=== PATIENT | female | born 1985 | race Caucasian/White ===

== ENCOUNTER → 2016-08-13 | Outpatient (CLI) | payer OTHER ==
--- NOTE | 2016-08-14 08:04 | US ---
EXAM DESCRIPTION: US ABDOMEN CLINICAL HISTORY: OTHER CIRRHOSIS OF LIVER COMPARISON: May 07, 2015 TECHNIQUE: Complete abdominal ultrasound was performed utilizing imaging. Gore Seamer static images were saved to the patient's medical record. FINDINGS: The liver is mildly enlarged measuring 17.7 cm in the craniocaudal dimension. The liver is echogenic. There is a 9 mm x 1 cm x 1.2 cm echogenic focus noted within the anterior right hepatic lobe. This may be compatible with a hemangioma. Additional small echogenic foci seen on today's study within the liver. The gallbladder is well seen and unremarkable. There are no gallstones. There is no gallbladder wall thickening. The common bile duct is normal in caliber measuring 3.5 mm. The incompletely imaged (due to overlying bowel gas and soft tissues) pancreas and the spleen are unremarkable. The kidneys are normal in size, shape, and echotexture. The IVC and the proximal aorta are unremarkable. IMPRESSION: Mild hepatomegaly and increased echogenicity of the liver. These findings can be seen in the setting of fatty infiltration or hepatocellular disease. Multiple hyperechoic foci seen within the liver. These are likely compatible with hepatic hemangiomas. The echogenic focus within the anterior right hepatic lobe is roughly stable when compared to prior. Electronically signed by: Jerald Dailey MD 08/14/2016 08:02
== END ==
LOC: US 08:59
PROVIDERS: ATTEND Family Medicine
DX: K74.69 Other cirrhosis of liver (principal); K85.90 Acute pancreatitis without necrosis or infection, unspecified; R74.0 Nonspecific elevation of levels of transaminase and lactic acid dehydrogenase [LDH]

== ENCOUNTER → 2016-08-28 | Outpatient (CLI) | payer OTHER | LOC: GMA 10:44 | PROVIDERS: ATTEND Nurse Practitioner Acute Care | DX: N39.0 Urinary tract infection, site not specified (principal) ==

== ENCOUNTER 2016-10-06 18:04 | Emergency (ER) | payer OTHER ==
--- NOTE | 2016-10-06 19:00 | RAD ---
EXAM: Chest,2 Views CLINICAL INDICATION: 30-year-old female with cough. TECHNIQUE: Two-view, PA and lateral projections of the chest were obtained. COMPARISON: None. FINDINGS: Unremarkable cardiac and mediastinal silhouette. Heart size is normal. Lungs are clear without focal opacity, pneumothorax or pleural effusions. The visualized bones are within normal limits. IMPRESSION: No acute cardiopulmonary abnormalities. Electronically signed by: Ameena Hess MD 10/06/2016 6:58 PM CDT
[2016-10-06] MEDS ORDERED: ACETYLCYSTEIN 20 % 6,000 MG/30 ML VIAL NEB ONE (20:05)
[2016-10-06] MEDS ORDERED: diphenhydrAMINE HCL 25 MG CAP PO ONE (20:06)
[2016-10-06] MEDS ORDERED: BENZONATATE PERLES 100 MG CAP PO ONE (20:06)
[2016-10-06] MEDS ORDERED: HYDROcodone 10MG/APAP 325MG 1 EA TAB PO ONE (20:07)
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
[2016-10-06 21:41] VITALS: BP 148/92; TEMP 98.2
[2016-10-06 23:30] VITALS: O2SAT 92
== END 2016-10-06 21:40 | disposition home or self-care (01) ==
LOC: ER 18:04
DX: J20.8 Acute bronchitis due to other specified organisms (principal); E10.9 Type 1 diabetes mellitus without complications; Z79.4 Long term (current) use of insulin; I10 Essential (primary) hypertension; E07.9 Disorder of thyroid, unspecified; Z79.899 Other long term (current) drug therapy; Z88.3 Allergy status to other anti-infective agents; Z88.2 Allergy status to sulfonamides; F32.9 Major depressive disorder, single episode, unspecified
CPT/HCPCS: 36415; 36416; 71020; 80053; 82948; 85025; 94640; Q0163

== ENCOUNTER 2016-12-29 20:37 | Inpatient (IN) | payer OTHER ==
[2016-12-29] MEDS ORDERED: SODIUM CHLORIDE 0.9% 1000ML 1,000 ML IVS ONE (21:01)
[2016-12-29] MEDS ORDERED: VANCOMYCIN HCL INJ 1,000 MG, VANCOMYCIN HCL INJ 500 MG in SODIUM CHLORIDE 0.9% 250ML 25... IVPB ONE (21:02)
[2016-12-29] MEDS ORDERED: KETOROLAC TROMETHAMINE INJ 30 MG/ML VIAL IV ONE (21:03)
[2016-12-29] MEDS ORDERED: MORPHINE SULFATE INJ 10 MG/ML VIAL IV ONE (21:04)
--- NOTE | 2016-12-29 21:07 | ED.PDOC ---
History of Present Illness - General Chief Complaint: Skin/Abrasion/Tear Stated Complaint: skin infection Time Seen by Provider: 12/29/16 20:51 Source: patient, family Exam Limitations: no limitations - History of Present Illness Initial Comments: PT IS A 31 YO DIABETIC FEMALE WHO REPORTS PROGRESSIVELY ENLARGING PAINFUL ERYTHEMATOUS MASS LOCATED ON THE POSTERIOR ASPECT OF THE LEFT UPPER ARM WITH PROGRESSIVELY WORSENING SURROUNDING ERYTHEMA. PT REPORTS THAT BLOOD GLUCOSE LEVELS HAVE BEEN RUNNING IN THE 400-500S. PT REPORTS SIMILAR EPISODE LAST YEAR IN WHICH PT WAS HOSPITALIZED FOR SEVERAL DAYS. Timing/Duration: constant, getting worse, other - 4 DAYS Severity: severe Improving Factors: immobilization Worsening Factors: movement Associated Symptoms: malaise, other - ELEVATED BLOOD SUGAR Allergies/Adverse Reactions: Allergies Cephalexin [From Keflex] Allergy (Verified 12/29/16 20:56) Rash Sulfamethoxazole w/Trimethoprim [From Bactrim] Allergy (Verified 12/29/16 20:56) Rash Home Medications: Ambulatory Orders Insulin Aspart [Novolog Flexpen] 10 unit SC TIDFD #0 02/04/14 Insulin Glargine [Lantus] 31 unit SC BID 02/04/14 Levothyroxine Sodium 10 mcg PO DAILY 05/04/15 Lisinopril 20 mg PO DAILY 04/14/16 Review of Systems - Review of Systems Constitutional: States: malaise. Denies: chills, fever EENTM: Denies: blurred vision, nose congestion Respiratory: Denies: cough, short of breath Cardiology: Denies: chest pain, palpitations Gastrointestinal/Abdominal: Denies: diarrhea, vomiting Genitourinary: Denies: dysuria, frequency Musculoskeletal: Denies: joint pain, joint swelling Skin: States: see HPI, change in color, lesions Neurological: Denies: numbness, paresthesia Endocrine: States: no symptoms reported Hematologic/Lymphatic: States: no symptoms reported Past Medical History (General) - Patient Medical History Hx Seizures: No Hx Stroke: No Hx Dementia: No Hx Asthma: No Hx of COPD: No Hx Cardiac Disorders: No Hx Congestive Heart Failure: No Hx Pacemaker: No Hx Hypertension: Yes Hx Thyroid Disease: Yes Hx Diabetes: Yes Hx Gastroesophageal Reflux: No Hx Renal Disease: No Hx Cancer: No Hx of HIV: No Hx Hepatitis C: No Hx MRSA: No Surgical History: no surgical history - Vaccination History Hx Tetanus, Diphtheria Vaccination: Yes Hx Influenza Vaccination: Yes Hx Pneumococcal Vaccination: No Immunizations Up to Date: Yes - Social History Hx Tobacco Use: Yes Hx Chewing Tobacco Use: No Hx Alcohol Use: No Hx Substance Use: No Hx Substance Use Treatment: No Hx Depression: No Feels Threatened In Home Enviroment: No Feels Threatened In a Relationship: No Hx Physical Abuse: No Hx Emotional Abuse: No Hx Suspected Abuse: No - Female History Patient is a Female of Child Bearing Age (10 -59 yrs old): Yes Hx Last Menstrual Period: 02/02/14 Patient : No Family Medical History - Family History Mother Family History: No Known Living Status: Still Living Hx Family Diabetes: Yes - dad Hx Family;Other: Bipolar, Thyroid Physical Exam - Physical Exam General Appearance: Alert, Obvious distress Neck: normal inspection Respiratory: normal breath sounds, no respiratory distress Cardiovascular/Chest: regular rate, rhythm, no murmur Gastrointestinal/Abdominal: non tender, soft Back Exam: normal inspection Extremity: normal range of motion, inflammation - TENDER, INDURATED AREA OF SWELLING LOCATED ON THE POSTERIOR ASPECT OF THE LEFT UPPER ARM WITH A LARGE AREA OF SURROUNDING ERYTHEMA. Neurologic: alert, normal mood/affect, oriented x 3 Skin Exam: warm/dry Progress - Progress Progress: 12/29/16 22:40 PREVIOUS RECORDS REVIEWED REVEALING PTS LAST VISIT WAS 09/2016 FOR ACUTE BRONCHITIS. PT RESTING COMFORTABLY, LABS DISCUSSED. PT AGREES WITH PLAN TO ADMIT TO FOR BLOOD GLUCOSE CONTROL AND IV ANTIBIOTICS FOR LUE CELLULITIS/ ABSCESS. - Results/Orders Results/Orders: 12/29/16 21:01 Sodium Chloride 0.9% (Flush) [Saline Flush Syringe] 10 ml IV PRN PRN 12/29/16 21:02 IV Care:Saline Lock per Protoc QSHIFT Telemetry .ONCE Vancomycin HCl Inj 1,000 mg Vancomycin HCl Inj 500 mg Sodium Chloride 0.9% 250Ml [NS 250ml] 250 ml IVPB ONCE Pulse Ox Stat 12/29/16 21:45 BLOOD CULTURE Stat 12/29/16 23:00 Insulin, Reg.(Human) [HumuLIN R] 250 units Sodium Chl 0.9% 250Ml (Mame) [NS 250ml (MAME)] 247.5 ml IVPB Q12H Laboratory Results - last 24 hr 12/29/16 12/29/16 12/29/16 21:45 21:45 21:45 WBC 14.1 H RBC 4.34 Hgb 13.2 Hct 37.9 MCV 87.4 MCH 30.4 MCHC 34.8 RDW 12.6 Plt Count 324 MPV 8.3 Absolute Neuts (auto) 10.30 H Absolute Lymphs (auto) 2.70 Absolute Monos (auto) 0.80 Absolute Eos (auto) 0.10 Absolute Basos (auto) 0.10 Neutrophils % 73.4 Lymphocytes % 19.4 L Monocytes % 5.4 Eosinophils % 0.9 L Basophils % 0.9 Sodium 132 L Potassium 4.4 Chloride 97 L Carbon Dioxide 26 Anion Gap 13.4 BUN 21 H Creatinine 0.90 BUN/Creatinine Ratio 23.3 H Random Glucose 543 H* Serum Osmolality 292.4 Lactic Acid 0.9 Calcium 9.1 Total Bilirubin 0.8 AST 13 ALT 16 Alkaline Phosphatase 128 H Serum Total Protein 6.7 Albumin 2.8 L Globulin 3.9 H Albumin/Globulin Ratio 0.7 L Departure - Departure Clinical Impression: Abscess and cellulitis, Diabetes type 1, uncontrolled Time of Disposition: 22:41 Disposition: Admit Patient Condition: Fair Departure Forms: ED Discharge - Pt. Copy, Patient Portal Self Enrollment Referrals: Marino Roberto III, MD [Primary Care Provider] - 1-2 Weeks Home Medications: Ambulatory Orders Insulin Aspart [Novolog Flexpen] 10 unit SC TIDFD #0 02/04/14 Insulin Glargine [Lantus] 31 unit SC BID 02/04/14 Levothyroxine Sodium 10 mcg PO DAILY 05/04/15 Lisinopril 20 mg PO DAILY 04/14/16 Decision To Admit - Decistion To Admit Decision to Admit Reason: Admit from ER Decision to Admit Date: 12/29/16 Decision to Admit Time: 22:42 - CASE DISCUSSED WITH YING YEAGER NP WHO AGREES TO ADMIT
[2016-12-29] MEDS: SODIUM CHLORIDE 0.9% (FLUSH) 10 ML SYG IV PRN (21:21)
[2016-12-29] MEDS ORDERED: VANCOMYCIN HCL INJ 500 MG VIAL ONE (22:13)
[2016-12-29] MEDS ORDERED: SODIUM CHLORIDE 0.9% 250ML 250 ML ONE (22:13)
[2016-12-29] MEDS ORDERED: VANCOMYCIN HCL INJ 1,000 MG VIAL IVPB ONE (22:13)
[2016-12-29] MEDS ORDERED: SODIUM CHL 0.9% 250ML (AVIVA) 0 ML IVPB ONE (22:36)
[2016-12-29] MEDS ORDERED: INSULIN, REG.(HUMAN) 100 U/ML VIAL ONE (22:36)
[2016-12-29] MEDS ORDERED: SODIUM CHL 0.9% 250ML (AVIVA) 250 ML IVPB ONE (22:37)
[2016-12-29] MEDS ORDERED: INSULIN, REG.(HUMAN) 250 UNITS in SODIUM CHL 0.9% 250ML (AVIVA) 247.5 ML IVPB SCH ×2 (23:00)
--- NOTE | 2016-12-29 23:09 | HP ---
SUPERVISING PHYSICIAN: Chevy Bates MD CHIEF COMPLAINT: Abscess. HISTORY OF PRESENT ILLNESS: Ms. Saavedra is a 31-year-old, female with a history of insulin dependent diabetes mellitus and noted she has an enlarging mass on the posterior aspect of her left upper arm over the last several days. It is progressively getting worse and becoming more painful. She notes her blood sugars have been running anywhere from 400 to 500 on a regular basis. She was concerned she could possibly be in diabetic ketoacidosis and in the past has had similar episodes and has been hospitalized for multiple days due to infection. In the Emergency Room, laboratory studies showed she had a leukocytosis with a left shift with white count of 14.5. Chemistries showed blood sugar [address] Gonzalez, the Emergency Room physician, requested that the patient be admitted for IV antibiotic therapy. She had blood cultures drawn and was started on vancomycin. The patient is now going to be admitted to the Medical/Surgical Floor and started on diabetic ketoacidosis protocol to help stabilize her blood sugars and for continued antibiotic therapy. She was admitted in stable condition. PAST MEDICAL HISTORY: 1. Nephritis. 2. Insulin dependent diabetes mellitus since 2012. 3. Cirrhosis of the liver without any mention of alcohol since 2012. 4. Peripheral neuropathy secondary to diabetes. 5. Hypothyroidism on supplementation. 6. Hypertension. 7. Depression. 8. History of constipation. 9. Insomnia. PAST SURGICAL HISTORY: 1. She has had two central lines previously. 2. Staph infection surgically removed from her left eye at age 15 months. HOME MEDICATIONS: 1. Lisinopril 20 mg daily. 2. Levothyroxine 10 mcg daily. 3. Lantus 31 units subcutaneously b.i.d. 4. NovoLog FlexPen 10 units subcutaneously t.i.d. ALLERGIES: CEPHALEXIN, BACTRIM. FAMILY HISTORY: Significant for cancers, diabetes, cardiovascular disease, strokes. SOCIAL HISTORY: The patient is self-employed. She lives in [place] and is . 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 She is a current smoker. She denies any recent alcohol or illicit drug use. REVIEW OF SYSTEMS: CONSTITUTIONAL: Denies any fevers, chills. HEENT: Denies blurred vision, nasal congestion, headaches, earaches. RESPIRATORY: Denies cough, shortness of breath. CARDIOVASCULAR: Denies chest pain or palpitations. Denies syncopal episodes. GASTROINTESTINAL: Denies diarrhea or vomiting. She has had past history of constipation. GENITOURINARY: Denies dysuria, increased frequency or other urinary symptoms. MUSCULOSKELETAL: Denies joint pain, joint swelling. INTEGUMENTARY: As noted in history of present illness. NEUROLOGIC: Denies any numbness, paresthesias or other neuromotor focal deficits. PHYSICAL EXAMINATION: VITAL SIGNS: Temperature 97.7. Pulse 121. Blood pressure initially 158/89. Respiratory rate 18. O2 saturation 94% on room air. After admission to Medical /Surgical Floor and initiation of treatment, temperature was 98.1. Heart rate 97. Blood pressure 139/87. Respirations 18. O2 saturation 95% on room air. Admission weight 84.7 kg. GENERAL: The patient is alert, appears to be in mild distress secondary to pain. HEENT: Tympanic membranes clear bilaterally. Oropharynx is pink with dry mucous membranes. NECK: Supple, nontender, full range of motion. No jugular venous distention noted. CHEST: Lungs clear to auscultation bilaterally without any rhonchi, wheezes, or rales. CARDIOVASCULAR: Regular rate and rhythm without any appreciable murmurs, gallops, or rubs. ABDOMEN: Soft, nontender. Positive bowel sounds. EXTREMITIES: Notable tender, indurated area with swelling on the posterior aspect of the left upper arm with a large area of surrounding erythema. No obvious consolidations or areas of drainage. NEUROLOGIC: The patient is alert and oriented times three. LABORATORY: CBC shows leukocytosis of 14.1, hemoglobin 13.2, hematocrit 37.9, platelet count 324,000. Differential does show a left shift. Chemistries show sodium 132, corrected for glucose of 543 to 139, potassium 4.4, carbon dioxide 26, anion gap normal at 13.4. BUN 21, lactic acid 0.9, alkaline phosphatase 128. Liver functions otherwise within normal limits. Urinalysis pending. MICROBIOLOGY: Blood cultures pending. RADIOLOGY: No radiographic studies completed on admission. ASSESSMENT: 1. Abscess/cellulitis of the left upper arm with likely source of infection staph, more likely methicillin-resistant Staphylococcus aureus with the patient being started on vancomycin on admission. 2. Hyperglycemia, hyperosmolar state in an insulin dependent diabetic, secondary to #1. 3. Hypertension. 4. Hypothyroidism. 5. History of tobacco abuse. 6. History of previous staph skin infections, last being noted in 04/11. PLAN: The patient is to be admitted to the Medical/Surgical Floor to help control her blood sugars and start definitive treatment for developing cellulitis given that she is an insulin-dependent diabetic and has been having elevated blood sugars anywhere from 500 to 600. At this point, she does not appear to be in diabetic ketoacidosis, but we will treat her pretty aggressively initially on admission starting her on an insulin drip and monitor closely until we stabilize her blood sugars. After that point, we can transition her to subcutaneous insulin as appropriate. At this point, she will be started on diabetic ketoacidosis protocol. Fluids were initiated in the Emergency Room with a liter of normal saline. This will be continued with half normal saline with 30 of potassium at 125 with close monitoring of her I&Os. Once she stabilizes, we will go to a.c. and h.s. blood sugars and sliding scale protocol. She will be on vancomycin per pharmacy protocol for her cellulitis. We will anticipate length of stay to be likely 2 to 3 days depending on how she responds clinically to treatment and antibiotic therapy. Should she show area of consolidation, certainly she will need I&D and we will discuss the case with Dr. Guillory in regards to further treatment of the area in question. Until discharge, we will continue to monitor the patient closely and treat appropriately. Once discharged, she will need close clinical followup with her primary care provider, Dr. Roberto. #[id number] [facility]
[2016-12-29] MEDS ORDERED: POTASSIUM CHLORIDE IVS PRN (23:47)
[2016-12-29] MEDS ORDERED: [UNRECOGNIZED DRUG - OTHER] IVS PRN (23:47)
[2016-12-29] MEDS ORDERED: KCL IVS PRN (23:47)
[2016-12-29] MEDS ORDERED: SODIUM CHLORIDE 0.9% (FLUSH) 10 ML SYG IV PRN (23:49)
[2016-12-29] MEDS ORDERED: ONDANSETRON INJ 4 MG/2 ML VIAL IV PRN (23:49)
[2016-12-29] MEDS ORDERED: ACETAMINOPHEN 325 MG TAB PO PRN (23:49)
[2016-12-30] MEDS: MORPHINE SULFATE INJ 10 MG/ML VIAL IV PRN ×4 (00:05→08:26)
[2016-12-30] MEDS ORDERED: KCL 20MEQ/0.45% NS 1,000 ML IVS ONE ×2 (00:31→04:12)
[2016-12-30] MEDS ORDERED: POTASSIUM CHLORIDE 10mEq 5ML VIAL ONE ×3 (00:35→04:34)
[2016-12-30] MEDS ORDERED: SODIUM CHLORIDE 0.9% 1000ML 1,000 ML ONE (00:46)
[2016-12-30] MEDS ORDERED: SODIUM CHLORIDE 0.9% 1000ML 1,000 ML IVS ONE (00:53)
[2016-12-30] MEDS ORDERED: KCL 30MEQ/D5 1/2NS 1,000 ML IVS PRN (01:47)
[2016-12-30] MEDS: HYDROcodone 5MG/APAP 325MG 1 EA TAB PO PRN ×2 (01:55→07:46)
[2016-12-30] MEDS ORDERED: KCL IVS PRN (04:05)
[2016-12-30] MEDS ORDERED: [UNRECOGNIZED DRUG - OTHER] IVS PRN (04:05)
[2016-12-30] MEDS ORDERED: POTASSIUM CHLORIDE IVS PRN (04:05)
[2016-12-30] MEDS: IV SET AND CAP CHANGE INJ INJ SCH (04:32)
[2016-12-30] MEDS: SODIUM CHLORIDE 0.9% (FLUSH) 10 ML SYG IV PRN (04:57)
[2016-12-30] MEDS: OMEPRAZOLE CAP 20 MG CAP PO SCH (06:16)
[2016-12-30] MEDS: INSULIN LISPRO 100 UNITS/ML PEN SUBCU SCH ×4 (07:22→20:48)
[2016-12-30] MEDS ORDERED: VANCOMYCIN PER PHARMACY INJ SCH (08:00)
[2016-12-30] MEDS ORDERED: VANCOMYCIN HCL INJ 1,000 MG VIAL IVPB ONE ×2 (08:43→19:36)
[2016-12-30] MEDS ORDERED: SODIUM CHLORIDE 0.9% 250ML 250 ML ONE ×2 (08:43→19:36)
[2016-12-30] MEDS ORDERED: VANCOMYCIN HCL INJ 500 MG VIAL ONE ×2 (08:43→19:36)
[2016-12-30] MEDS: VANCOMYCIN HCL INJ 1,000 MG, VANCOMYCIN HCL INJ 500 MG in SODIUM CHLORIDE 0.9% 250ML 25... IVPB SCH ×2 (10:49→21:13)
[2016-12-30] MEDS ORDERED: INSULIN DETEMIR 100 UNITS/ML PEN SUBCU ONE ×2 (11:54→12:01)
[2016-12-30] MEDS ORDERED: NON-FORMULARY MEDICATION 1 EA MIS (Lisinopril [Lisinopril] 20 MG) PO SCH (12:15)
[2016-12-30] MEDS ORDERED: LISINOPRIL 10 MG TAB ONE (12:26)
[2016-12-30] MEDS: HYDROcodone 10MG/APAP 325MG 1 EA TAB PO PRN ×3 (12:27→21:15)
[2016-12-30] MEDS: LISINOPRIL 10 MG TAB PO SCH (12:33)
--- NOTE | 2016-12-30 13:13 | PN ---
SUPERVISING PHYSICIAN: Chevy Bates MD DATE: 12/30/16 SUBJECTIVE: The patient is sitting up in her hospital bed. She is somewhat tearful. She complains of that her arm is really hurting and she just does not feel well. She denies chest pain, shortness of breath, coughing, or diarrhea. She does have some complaints of occasional nausea. OBJECTIVE: VITAL SIGNS: Afebrile. Heart rate 102. Blood pressure 125/87. Respiratory rate 18. O2 saturation 91% on room air. LUNGS: Clear to auscultation bilaterally. CARDIAC: Regular rate and rhythm. ABDOMEN: Soft, nontender, nondistended. Bowel sounds are positive. EXTREMITIES: No cyanosis, clubbing or edema with the exception of the left lateral to posterior area of the upper arm that is very tender to palpation. It is indurated and there is a large amount of erythema. There is no fluctuance or drainage. NEUROLOGIC: Awake, alert and oriented times three. LABORATORY: WBC slightly lowered to 12.6. Sodium 133. Glucoses run between 84 to 185. Serum osmolality 267, calcium 8. Preliminary blood cultures are negative to date. All other labs and films have been reviewed via the EMR. ASSESSMENT: 1. Cellulitis of the left upper arm with the likely source of infection as staph, most likely methicillin-resistant Staphylococcus aureus with the patient being started on vancomycin since admission. 2. Hyperglycemia, hyperosmolar state in an insulin dependent diabetic secondary to #1. 3. Hypertension. 4. Hypothyroidism. 5. History of tobacco abuse. 6. History of previous staph skin infections, the last being noted in 04/11. PLAN: We will continue present supportive care. I will get a sonogram of her soft tissue on that arm and will also consult Dr. Guillory at some point after results of that sonogram. I have added an extra dose of long-acting insulin this morning and we will restart her on her normal long-acting insulin tonight. I have discontinued her IV fluids. She has put out quite a bit of urine and I believe her dehydration has corrected itself for the most part. I have also discontinued her IV morphine and increased her hydrocodone. I ordered her labs that include electrolytes at 5 PM as well as AM labs. We will continue present supportive care and followup as needed. Dr. Bates is the collaborating physician and available for consultation. #[id number] [facility]
--- NOTE | 2016-12-30 13:22 | US ---
EXAM DESCRIPTION: Soft Tissue,Extremity CLINICAL HISTORY: 31 years Female, cellulitis with swelling of the left posterior arm. This is occurring over last several days and has worsened. Limited soft tissue ultrasound of the left posterior arm. Grayscale and color Doppler images were acquired. FINDINGS: There is a 2.8 x 1.4 x 3.1 cm collection of fluid noted approximately 8 mm below the skin surface. Subtle hyperemia noted surrounding this area. IMPRESSION: Today's exam can be compatible with either a subcutaneous abscess or hematoma. Electronically signed by: Jerald Dailey MD 12/30/2016 1:22 PM CDT
--- NOTE | 2016-12-30 17:15 | CONS ---
DATE OF CONSULTATION: 12/30/16 HISTORY OF PRESENT ILLNESS: The patient is a 31 year-old female diabetic who has undergone multiple admissions for diabetic ketoacidosis. She presented yesterday with elevated blood sugars and elevated carbon dioxide, a white blood cell count of 14,000 and a tender mass on her left upper arm posteriorly. She denies injury to this area. Denies giving her self insulin in this area but she has had previous skin and subcutaneous abscesses. PAST MEDICAL HISTORY: 1. Nephritis. 2. Diabetes. 3. Hepatic cirrhosis. 4. Peripheral neuropathy. 5. Hypothyroidism. 6. Hypertension. 7. Depression. 8. Constipation. 9. Insomnia. PAST SURGICAL HISTORY: 1. Status post central lines. 2. Incision and drainage of an abscess in her left eye as an . CURRENT MEDICATIONS: 1. Lisinopril. 2. Levothyroxine. 3. Lantus. 4. NovoLog. ALLERGIES: CEPHALEXIN AND BACTRIM. FAMILY HISTORY: Positive for malignancies, diabetes, heart disease, cerebrovascular accidents. SOCIAL HISTORY: The patient is self employed and lives in [place] with her . She has a history of IV drug use but states she has been clean since 2013. She smokes. Does not use alcohol currently. REVIEW OF SYSTEMS: Insignificant other than her usual problems with her blood sugars. PHYSICAL EXAMINATION: GENERAL: The patient is awake, alert and cooperative. She is afebrile and normotensive. HEENT: Sclera are nonicteric. Mucous membranes are moist. NECK: Without adenopathy. BACK: Without CVA tenderness. ABDOMEN: Benign. EXTREMITIES: Her right arm has an ecchymosis on the medial aspect of her right arm. The left arm reveals a tender mass in the lower aspect of the posterior left arm above the elbow. It is indurated, erythematous overlying but there is no fluctuance. No crepitance. The erythema which was previous marked on admission has withdrawn somewhat to a smaller area. LABORATORY: White blood cell count today of 12.6 down from 14.1. Segmented neutrophils have gone from 73 to 56, hemoglobin 13.2 to 12 and platelet count is 306,000. Blood sugars have been from 80 to 240 over the last 12 hours. Creatinine is 0.66. Liver functions are within normal limits. She underwent an ultrasound of the left arm which revealed a fluid collection in the subcutaneous areas 7 to 8 mm from the skin surface. ASSESSMENT: 1. Abscess left arm. 2. Diabetes mellitus. 3. History of cirrhosis. PLAN: The patient was given the option of incision and drainage now under local anesthesia or waiting since she has eaten for incision and drainage tomorrow, and this is what she wises. She will be made NPO at midnight. Continue the antibiotic therapy and will obtain a PT and INR due to her history of cirrhosis to rule out a clotting problem. #[id number] [facility]
[2016-12-30] MEDS: INSULIN DETEMIR 100 UNITS/ML PEN SUBCU SCH (21:12)
[2016-12-31] MEDS: SODIUM CHLORIDE 0.9% (FLUSH) 10 ML SYG IV PRN (00:04)
[2016-12-31] MEDS: INSULIN LISPRO 100 UNITS/ML PEN SUBCU SCH ×5 (00:05→20:54)
[2016-12-31] MEDS: HYDROcodone 10MG/APAP 325MG 1 EA TAB PO PRN ×2 (01:34→22:49)
[2016-12-31] MEDS ORDERED: DEXTROSE 50% 25 GM/50 ML SYG IV ONE (01:44)
[2016-12-31] MEDS: KCL 20MEQ/D5 1/2NS 1,000 ML IVS PRN ×2 (01:55→15:22)
[2016-12-31] MEDS: OMEPRAZOLE CAP 20 MG CAP PO SCH (05:38)
[2016-12-31] MEDS ORDERED: PROPOFOL 200 MG/20 ML VIAL IV ONE (07:00)
[2016-12-31] MEDS ORDERED: LIDOCAINE 1% 10 ML VIAL INJ ONE (07:00)
[2016-12-31] MEDS ORDERED: VANCOMYCIN HCL INJ 500 MG VIAL ONE ×2 (07:39→19:39)
[2016-12-31] MEDS ORDERED: VANCOMYCIN HCL INJ 1,000 MG VIAL IVPB ONE ×2 (07:40→19:39)
[2016-12-31] MEDS ORDERED: SODIUM CHLORIDE 0.9% 250ML 250 ML ONE ×2 (07:40→19:39)
[2016-12-31] MEDS ORDERED: LEVOTHYROXINE SODIUM PO SCH (09:00)
[2016-12-31] MEDS ORDERED: LISINOPRIL 10 MG TAB PO SCH (09:00)
--- NOTE | 2016-12-31 09:26 | PN ---
SUPERVISING PHYSICIAN: Scott Calero MD DATE: 12/31/16 SUBJECTIVE: The patient is sleeping in bed. She awakens easily. She complains of pain around the cellulitis area on her left upper arm. We discussed her hemoglobin A1c of 11.2 and she did stay that she was being followed by Dr. Roberto closely and that there were trying to get that down and that they were actually trying a new monitor and that she is to see him after she is discharged from the hospital. Otherwise, no chest pain, shortness of breath, nausea, vomiting, diarrhea. OBJECTIVE: VITAL SIGNS: Afebrile. Heart rate 103. Blood pressure 101/68. Respiratory rate 16. O2 saturation 93% on room air. LUNGS: Clear to auscultation bilaterally. CARDIAC: Regular rate and rhythm. ABDOMEN: Soft, nontender, nondistended. Bowel sounds are positive. EXTREMITIES: No cyanosis, clubbing or edema. The area of cellulitis to her left upper posterior arm is slightly less erythematous than yesterday. It is still warm to touch with erythema and no fluctuance is noted. NEUROLOGIC: Awake, alert and oriented times three. LABORATORY: WBC slightly increased to 13.5 with neutrophils 74. Hemoglobin 11.6, hematocrit 34.5. Coags show PT 10.2, INR 0.9, PT-T 36. Sodium 136, potassium 4.2, chloride 106, carbon dioxide 25, BUN 15, creatinine 0.5, glucose 141. Her glucoses have run as high as 381 and as low as 61. Hemoglobin A1c 11.2. Serum osmolality 275.2, calcium 8.2, C-reactive protein 3.2, ESR 107. Serum ketones at this point are negative. Preliminary blood cultures show no growth after 24 hours. Soft tissue sonogram from yesterday per radiologic interpretation shows a 2.8 by 1.4 by 3.1 cm collection of fluid noted approximately 8 mm below the skin surface of left upper arm, subtle hyperemia noted surrounding the area. The exam was compatible with either a subcutaneous abscess or hematoma. All other labs and films have been reviewed via the EMR. ASSESSMENT: 1. Cellulitis of soft tissue abscess on the left upper arm with the likely source of infection as staph, most likely methicillin-resistant Staphylococcus aureus. The patient is presently on vancomycin and we will have an I&D per Dr. Guillory , general surgeon, today. 2. Diabetes mellitus, uncontrolled with hyperglycemia on admission with hemoglobin A1c of 11.2. 3. Hypertension. 4. Hypothyroidism. 5. History of tobacco abuse. 6. History of previous staph skin infections, the last being noted in 04/11. 7. Past history of cirrhosis of the liver without any mention of alcohol since 2012. PLAN: We will continue present supportive care. I have changed her to an NPO status awaiting her I&D per Dr. Guillory, general surgeon, today. I will defer wound care to him postoperatively. She will need close followup diabetes management after she is discharged and I believe that is ongoing with Dr. Roberto. I have ordered a CBC and BMP for tomorrow. I will speak to Dr. Guillory later if he would like any additional testing done. I have also ordered her some Dilaudid for pain and she has IV fluids until after surgery. We will continue to monitor the patient closely and followup as needed. #[id number] [facility]
[2016-12-31] MEDS: HYDROmorphone HCL INJ 2 MG/ML VIAL IV PRN ×3 (09:34→20:45)
[2016-12-31] MEDS: LISINOPRIL 10 MG TAB PO SCH (09:37)
[2016-12-31] MEDS: INSULIN DETEMIR 100 UNITS/ML PEN SUBCU SCH ×2 (09:39→20:44)
[2016-12-31] MEDS: VANCOMYCIN HCL INJ 1,000 MG, VANCOMYCIN HCL INJ 500 MG in SODIUM CHLORIDE 0.9% 250ML 25... IVPB SCH ×2 (09:49→20:46)
[2016-12-31] MEDS ORDERED: fentaNYL CITRATE INJ 50 MCG/ML AMP ONE (12:14)
[2016-12-31] MEDS ORDERED: LIDOCAINE 2 % GEL 5 ML TUBE TOP ONE (12:14)
[2016-12-31] MEDS ORDERED: LIDOCAINE 1% 50 ML VIAL INJ ONE (12:41)
[2016-12-31] MEDS ORDERED: SODIUM BICARBONATE VIAL 50 MEQ/50 ML VIAL ONE (12:41)
[2016-12-31] MEDS ORDERED: IODOFORM 1INCH 1 EA BTTL TOP ONE (13:19)
--- NOTE | 2016-12-31 14:05 | OP ---
DATE OF PROCEDURE: 12/31/16 PREOPERATIVE DIAGNOSIS: 1. Subcutaneous abscess, left arm. POSTOPERATIVE DIAGNOSIS: 1. Subcutaneous abscess, left arm. PROCEDURE: 1. Incision and drainage of abscess, left arm. SURGEON: Dante Guillory MD. GENERAL FARM MANAGER: None. ANESTHESIA: Local infiltration of 1% lidocaine with bicarb and IV sedation by Anesthesia. INDICATION: The patient is a 31-year-old, diabetic who presented to the Emergency Room with left arm pain and elevated white count. She was started on IV antibiotics. She was seen yesterday and ultrasound was obtained which revealed a subcutaneous fluid collection in the area of the tender mass and erythema. Since she had eaten yesterday, she was offered incision and drainage under local anesthesia which she refused, so she was made NPO and brought to the Surgical Suite today for incision and drainage of the arm. FINDINGS: A significant amount of [id number], creamy, white fluid was obtained and cultured. PROCEDURE: After the patient was brought to the Surgical Suite and sedated in bed, her left arm was prepped and draped in the usual sterile manner. Local infiltration of anesthesia was obtained in a vertical manner and a vertical incision was made. The pus was obtained and cultured. The incision was then slightly lengthened. A hemostat was introduced to divide the wound and break down loculations. A finger was then used for the same thing. It was then irrigated copiously with saline. Some hemostasis was obtained with electrocautery and the wound was then packed with 1 inch iodoform Nu-Gauze. A sterile dressing was applied. The patient tolerated the procedure well and was awakened and taken back to the Floor in stable condition. Estimated blood loss was 25 mL. All sponge, needle and instrument counts were correct. #[id number] [facility]
[2017-01-01] MEDS: HYDROmorphone HCL INJ 2 MG/ML VIAL IV PRN ×3 (00:40→09:35)
[2017-01-01] MEDS: HYDROcodone 10MG/APAP 325MG 1 EA TAB PO PRN ×4 (03:56→19:40)
[2017-01-01] MEDS: OMEPRAZOLE CAP 20 MG CAP PO SCH (06:00)
[2017-01-01] MEDS: INSULIN LISPRO 100 UNITS/ML PEN SUBCU SCH ×4 (07:00→21:07)
[2017-01-01] MEDS: LISINOPRIL 10 MG TAB PO SCH (08:06)
[2017-01-01] MEDS: INSULIN DETEMIR 100 UNITS/ML PEN SUBCU SCH ×2 (09:29→21:07)
[2017-01-01] MEDS: SODIUM CHLORIDE 0.9% (FLUSH) 10 ML SYG IV SCH ×2 (09:30→20:08)
[2017-01-01] MEDS ORDERED: SODIUM CHLORIDE 0.9% 250ML 250 ML ONE ×2 (10:54→19:20)
[2017-01-01] MEDS ORDERED: VANCOMYCIN HCL INJ 500 MG VIAL ONE ×2 (10:54→19:20)
[2017-01-01] MEDS ORDERED: VANCOMYCIN HCL INJ 1,000 MG VIAL IVPB ONE ×3 (10:54→19:21)
[2017-01-01] MEDS: VANCOMYCIN HCL INJ 1,000 MG, VANCOMYCIN HCL INJ 500 MG in SODIUM CHLORIDE 0.9% 250ML 25... IVPB SCH ×2 (11:09→21:29)
[2017-01-01] MEDS ORDERED: metroNIDAZOLE IV PREMIX 500MG 100 ML IVPB ONE ×3 (11:21→19:19)
[2017-01-01] MEDS: metroNIDAZOLE IV PREMIX 500MG 500 MG in PREMIX BAG 1 BAG IVPB SCH ×2 (12:41→19:41)
[2017-01-01] MEDS ORDERED: levoFLOXacin 750MG IV 750 MG in PREMIX BAG 1 BAG IVPB SCH (13:00)
--- NOTE | 2017-01-01 13:18 | PN ---
SUPERVISING PHYSICIAN: Chevy Bates MD DATE: 01/01/17 SUBJECTIVE: The patient is resting in bed. She has had good pain control. She has had no nausea. She has eliecer afebrile. OBJECTIVE: VITAL SIGNS: T-max 98.9. Pulse 90. Blood pressure 131/87. Respirations 18. O2 saturation 95% on room air. I&Os show positive balance of 2754 with 3429 in and 675 out. Weight 87.7 kg. LUNGS: Clear to auscultation bilaterally. CARDIAC: Regular rate and rhythm. ABDOMEN: Soft, nontender, nondistended. Bowel sounds are positive. EXTREMITIES: No cyanosis, clubbing or edema. The left upper posterior arm shows area of decreasing cellulitis from previous days with a recent I&D with packing place. No obvious drainage is noted. NEUROLOGIC: Awake, alert and oriented times three. LABORATORY: White count normal normalized to 10. Hemoglobin 11.1, hematocrit 32.4, platelet count 305,000, differential now within normal limits. Chemistries show normal electrolytes with potassium 3.8, BUN 10, creatinine 0.5 , glucose 70 to 216. MICROBIOLOGY: Preliminary wound culture shows possible anaerobic growth needing additional incubation time. ASSESSMENT: 1. Cellulitis of soft tissue abscess on the left upper arm, likely staph, most likely methicillin-resistant Staphylococcus aureus although current culture results show no growth with the patient having been started on parenteral antibiotics with vancomycin prior to incision and drainage. Current anaerobic plates do show some growth, so there is concern for additional organism and we will cover accordingly. 2. Diabetes mellitus, type 1, uncontrolled with hyperglycemia on admission with hemoglobin A1c of 11.2. 3. Hypertension. 4. Hypothyroidism. 5. History of tobacco abuse. 6. History of previous staph skin infections, the last being noted in 04/11. 7. Past history of cirrhosis of the liver without any mention of alcohol since 2012. PLAN: We will continue with wound management with Dr. Guillory. Given that she does have possible anaerobe, we will cover this with additional antibiotics to include Levaquin and Flagyl until we can get final culture results back and she remains on vancomycin. We will encourage deep breathing exercises and ambulation as tolerated. We will hopefully discharge tomorrow once final culture results are available. Until then, we will continue to monitor the patient closely and once discharged, she will need ongoing management in the outpatient setting with primary care provider, Dr. Roberto. #[id number] [facility]
[2017-01-01] MEDS: MAGNESIUM HYDROXIDE 30 ML UD PO PRN (13:23)
[2017-01-01] MEDS: IV SET AND CAP CHANGE INJ INJ SCH (23:20)
[2017-01-02] MEDS: metroNIDAZOLE IV PREMIX 500MG 500 MG in PREMIX BAG 1 BAG IVPB SCH ×3 (03:49→19:38)
[2017-01-02] MEDS: HYDROcodone 10MG/APAP 325MG 1 EA TAB PO PRN ×3 (03:53→19:43)
[2017-01-02] MEDS: OMEPRAZOLE CAP 20 MG CAP PO SCH (06:14)
[2017-01-02] MEDS: INSULIN LISPRO 100 UNITS/ML PEN SUBCU SCH ×4 (07:08→21:07)
[2017-01-02] MEDS: SODIUM CHLORIDE 0.9% (FLUSH) 10 ML SYG IV SCH ×2 (09:48→20:10)
[2017-01-02] MEDS: LISINOPRIL 10 MG TAB PO SCH (09:48)
[2017-01-02] MEDS: INSULIN DETEMIR 100 UNITS/ML PEN SUBCU SCH ×2 (09:49→21:07)
[2017-01-02] MEDS ORDERED: VANCOMYCIN HCL INJ 500 MG VIAL ONE ×2 (10:27→19:10)
[2017-01-02] MEDS ORDERED: SODIUM CHLORIDE 0.9% 250ML 250 ML ONE ×2 (10:28→19:11)
[2017-01-02] MEDS ORDERED: VANCOMYCIN HCL INJ 1,000 MG VIAL IVPB ONE ×2 (10:28→19:11)
[2017-01-02] MEDS: VANCOMYCIN HCL INJ 1,000 MG, VANCOMYCIN HCL INJ 500 MG in SODIUM CHLORIDE 0.9% 250ML 25... IVPB SCH ×2 (10:47→22:25)
[2017-01-02] MEDS: BIFIDOBACTERIUM INFANTIS 4 MG CAP PO SCH ×2 (11:29→20:10)
[2017-01-02] MEDS ORDERED: metroNIDAZOLE IV PREMIX 500MG 100 ML IVPB ONE ×3 (13:08→19:09)
--- NOTE | 2017-01-02 13:26 | PN ---
SUPERVISING PHYSICIAN: Chevy Bates MD DATE: 01/02/17 SUBJECTIVE: The patient said she is feeling better. Her arm is still sore. It is less swollen. She remains afebrile. She was started on Flagyl and Levaquin yesterday given the culture results are pending. She had a little nausea with them, but after the second dose, was tolerating without any problem. After Levaquin, the patient said she had some chest discomfort, but it resolved without any treatment and troponins were negative. EKG was within normal sinus rhythm with no changes. OBJECTIVE: VITAL SIGNS: Temperature 97.7. Pulse 92. Blood pressure 167/89. Respirations 18. Saturation 98% on room air. I&Os show positive balance. Weight 85.6 kg. CHEST: Lungs clear to auscultation bilaterally. HEART: Regular rate and rhythm. ABDOMEN: Soft, nontender. Positive bowel sounds. EXTREMITIES: Left arm shows less erythema to the upper area of cellulitis from previous days. Packing remains in place with some mild drainage. No additional areas of erythema or cellulitis are noted. NEUROLOGIC: Alert and oriented times three. LABORATORY: White count 10.8, hemoglobin 11.8, hematocrit 34.9, platelet count 355,000, differential within normal limits. Chemistries show normal electrolytes with potassium 3.8, BUN 10, creatinine 0.5, glucoses have been 130 to 268, calcium 8.8. Troponins after some chest discomfort yesterday after Levaquin are within normal limits. MICROBIOLOGY: Wound culture is still incubating. Today after review with micro , shows possibly more skin contaminant than an anaerobic organism. RADIOLOGY: EKG showed normal sinus rhythm. ASSESSMENT: 1. Cellulitis of soft tissue abscess on the left upper arm, likely staph, most likely methicillin-resistant Staphylococcus aureus although current culture results show no growth with the patient having been started on parenteral antibiotics with vancomycin prior to incision and drainage. Current anaerobic plates do show some growth, but possibly skin contaminant, needing further workup with the patient remaining on Flagyl and Levaquin until final culture results are available. 2. Diabetes mellitus, type 1, uncontrolled with hyperglycemia on admission with hemoglobin A1c of 11.2. 3. Hypertension. 4. Hypothyroidism. 5. History of tobacco abuse. 6. History of previous staph skin infections, the last being noted in 04/11. 7. Past history of cirrhosis of the liver without any mention of alcohol since 2012. 8. Reported chest pressure after initiation of Levaquin and Flagyl with troponins all negative and EKG being normal sinus rhythm with the patient having no more episodes of chest pain and has tolerated subsequent dosages of antibiotics. PLAN: I will continue to follow the patient, wound management with Dr. Guillory. We will await final culture results tomorrow. Anticipation of discharge and continues today with Flagyl and Levaquin and vancomycin per pharmacy protocol until culture results are available. On culture results are available, we should be able to target antibiotic therapy accordingly and discharge home to continue wound management and close followup with Dr. Roberto. Until then, we will continue to monitor the patient closely and treat appropriately. #[id number] [facility]
[2017-01-02] MEDS ORDERED: levoFLOXacin 750MG IV 750 MG in PREMIX BAG 1 BAG IVPB SCH (16:00)
[2017-01-02] MEDS: MAGNESIUM HYDROXIDE 30 ML UD PO PRN (19:43)
[2017-01-02] MEDS ORDERED: LISINOPRIL 10 MG TAB PO ONE (20:00)
[2017-01-02] MEDS ORDERED: SODIUM PHOS/BIPHOS ENEMA ADULT 133 ML BTTL PR ONE (21:43)
[2017-01-03] MEDS: metroNIDAZOLE IV PREMIX 500MG 500 MG in PREMIX BAG 1 BAG IVPB SCH (04:15)
[2017-01-03] MEDS: OMEPRAZOLE CAP 20 MG CAP PO SCH (06:07)
[2017-01-03] MEDS: INSULIN LISPRO 100 UNITS/ML PEN SUBCU SCH (08:03)
[2017-01-03] MEDS ORDERED: VANCOMYCIN HCL INJ 1,000 MG VIAL IVPB ONE (08:05)
[2017-01-03] MEDS ORDERED: VANCOMYCIN HCL INJ 500 MG VIAL ONE (08:05)
[2017-01-03] MEDS ORDERED: SODIUM CHLORIDE 0.9% 250ML 250 ML ONE (08:05)
[2017-01-03] MEDS: INSULIN DETEMIR 100 UNITS/ML PEN SUBCU SCH (08:27)
[2017-01-03] MEDS: BIFIDOBACTERIUM INFANTIS 4 MG CAP PO SCH (08:27)
[2017-01-03] MEDS: LISINOPRIL 10 MG TAB PO SCH (08:27)
[2017-01-03] MEDS: SODIUM CHLORIDE 0.9% (FLUSH) 10 ML SYG IV SCH (08:30)
[2017-01-03] MEDS ORDERED: DOXYCYCLINE HYCLATE CAP 100 MG CAP PO ONE (09:30)
[2017-01-03] MEDS: VANCOMYCIN HCL INJ 1,000 MG, VANCOMYCIN HCL INJ 500 MG in SODIUM CHLORIDE 0.9% 250ML 25... IVPB SCH (09:44)
[2017-01-03 11:26] VITALS: BP 163/89; TEMP 97; O2SAT 95
--- NOTE | 2017-01-03 14:57 | DS ---
DISCHARGE DIAGNOSIS: 1. Acute abscess left upper arm with associated cellulitis possibly Staphylococcus in origin yet with negative culture except for skin contaminants after having started on vancomycin and other antibiotic courses overnight before incision and drainage allowed culture specimen to be obtained for culture purposes. Showing clinical improvement yet will require ongoing management after incision and drainage by Dr. Guillory at the onset of her hospital stay. 2. Diabetes mellitus type 1 somewhat poorly controlled with elevated hemoglobin A1c of 11.2 with the patient at home being on a continuous glucose monitoring device with anticipated use of any insulin pump as soon as it is obtainable in the outpatient clinic with Dr. Pardeep espinal. 3. Hypertension currently on an Clay inhibitor. 4. Hypothyroidism on supplementation. 5. History of tobacco abuse encouraged to stop completely. 6. History of previous Staphylococcus skin infections last noted approximately 9 months ago. 7. Past history of cirrhosis of the liver currently stable. HISTORY OF PRESENT ILLNESS: This 31 year-old white female was admitted to the hospital from the Emergency Room because of a severe painful swelling with erythema getting worse in her left upper lateral arm. Her blood sugars have been poorly controlled up to 400 and 500s and the patient was admitted to the hospital for initial care with IV fluids and insulin utilization to help prevent any worsening of a potential underlying diabetic ketoacidosis which was not fully appreciated during her hospital course. She did have leukocytosis probably from the significant infection. She was started on vancomycin and because she had eaten, the incision and drainage was scheduled for the next day at which time cultures were obtained showing skin contaminants only. Her incision and drainage was completed with Xeroform gauze as a drain which was slowly pulled out after completion of the incision and drainage with dressing changes as her hospital course continued with almost complete resolution of the expanding erythema originally noted upon her admission. Blood pressure was still a little elevated and will require close followup and her diabetes also showed steady improvement as the underlying infection was treated successfully. LABORATORY: White count initially was 14,100 with 73% neutrophils decreasing to 10,800. Hemoglobin was 11.8 on disease. ESR was 107. INR of 0.9. Chemistries showed initial sugar of 543, sodium 132, CO2 was only 26, lactic acid was 0.9, albumin 2.8. test negative. Hemoglobin A1c elevated at 11.2. C reactive protein elevated at 33.2. Troponin was zero. Urinalysis showed a urine acid test small but serum ketones were negative as was urine drug screen. Cultures on the blood were negative and wound culture showed skin contaminants. Soft tissue ultrasound did show a fluid accumulation suggesting an abscess in the left lateral arm associated with severe swelling and erythema which had incision and drainage performed by Dr. Guillory on 12/31/16 successfully. HOSPITAL COURSE: The patient did have steady advancement in pulling out of the Xeroform gauze from the incision and this was re-changed with Betadine cleansing of the skin around the area on the morning of discharge at dressing change. The patient was ready and very willing to go with continued outpatient followup in the clinic. PLAN: The patient is discharged to have close followup with Dr. Roberto this next week in the clinic and continue with vigorous diabetic management. She eventually may benefit by insulin infusion pump therapy. The patient is to schedule an appointment to see Dr. Guillory the first of this next week for dressing change and wound followup. She was started before discharge on Doxycycline 100 mg and to have her first dose with the prescription she receives today tonight with the first dose in the hospital this morning before her discharge. She is to use diluted Hibiclens 5 or 6 parts water to 1 part Hibiclens on her arms and torso when showering 2 to 3 times weekly to help reduce the risk of ongoing Staphylococcus infections and help with continued resolution of this one. Return if not improving. #[id number] [facility]
== END 2017-01-03 11:25 | disposition home or self-care (01) | DRG 581 ==
LOC: ER 20:37 → MS 23:08 → OBSVTOIN 23:08
PROVIDERS: ADMIT Nurse Practitioner Family; ATTEND Emergency Medicine
PROC: 0J9F0ZZ Drainage of Left Upper Arm Subcutaneous Tissue and Fascia, Open Approach (ICD-10-PCS; principal; 2016-12-31 13:00)
DX: L02.414 Cutaneous abscess of left upper limb (principal); L03.114 Cellulitis of left upper limb; E10.65 Type 1 diabetes mellitus with hyperglycemia; I10 Essential (primary) hypertension; E03.9 Hypothyroidism, unspecified; K74.60 Unspecified cirrhosis of liver; E10.51 Type 1 diabetes mellitus with diabetic peripheral angiopathy without gangrene; G47.00 Insomnia, unspecified; F17.210 Nicotine dependence, cigarettes, uncomplicated; Z79.4 Long term (current) use of insulin; Z79.899 Other long term (current) drug therapy; Z88.1 Allergy status to other antibiotic agents

== ENCOUNTER → 2017-04-22 | Outpatient (CLI) | payer OTHER | LOC: GMA 16:31 | PROVIDERS: ATTEND Nurse Practitioner Family | DX: L03.90 Cellulitis, unspecified (principal) ==

== ENCOUNTER 2017-04-24 09:10 | Inpatient (IN) | payer OTHER ==
--- NOTE | 2017-04-24 09:24 | HP ---
SUPERVISING PHYSICIAN: Scott Calero MD CHIEF COMPLAINT: Abscess to the right hip. HISTORY OF PRESENT ILLNESS: Ms. Saavedra is a 31-year-old, female patient of Dr. Hill. She has a longstanding history of insulin dependent diabetes mellitus and multiple staph infections n the past with last hospitalization required in December of 2016 for an abscess to her upper left arm. She started noticing on 04/21/17 that she had an area on her right hip overlying the greater trochanteric area that was becoming sore and red. She went to the clinic given her history of previous infections requiring hospitalization and was placed on antibiotics to include clindamycin as well as given a shot of Rocephin this past Thursday. She presented back to Dr. Roberto' office this morning and it was noted that the area was showing minimal improvement. Given that the patient is a fairly brittle diabetic and has longstanding history of methicillin-resistant Staphylococcus aureus infections, Dr. Roberto requested the patient be admitted to the hospital for initiation of parenteral antibiotic to include vancomycin and having failed to respond adequately to outpatient treatment plan. She was admitted in stable condition. PAST MEDICAL HISTORY: 1. Hyperlipidemia. 2. Hypertension. 3. Type 1 diabetes diagnosed at age 8, complicated by retinopathy and peripheral neuropathy. 4. Bipolar disorder. 5. Anxiety attacks. 6. One episode of pancreatitis as a child. 7. Multiple staph infections, last hospitalization was December of 2016. 8. History of chronic constipation. 9. Peripheral neuropathy secondary to diabetes. 10. Cirrhosis of the liver without any mention of alcohol since 2012. PAST SURGICAL HISTORY: 1. No major surgeries other than I&Ds for past abscess areas, the last one in December of 2016 of the left upper arm. 2. Two central lines previously placed due to poor peripheral vascular access. 3. Staph infection surgically removed from her left eye at age 15 months CURRENT MEDICATIONS: 1. Lisinopril 20 mg daily. 2. Levothyroxine 100 mcg daily. 3. Lantus 30 units subcutaneously twice daily. 4. NovoLog FlexPen 10 units subcutaneously 3 times a day. 5. Doxycycline 100 mg twice daily. ALLERGIES: CEPHALEXIN, BACTRIM. FAMILY HISTORY: Significant for hypertension and bipolar disorder, cancers, diabetes, strokes, cardiovascular disease. SOCIAL HISTORY: The patient is self-employed. She lives in [place] and is . She does have a remote history of drug abuse using amphetamines, cocaine, marijuana and multiple [id number] drugs, but notes she has been clean since 2014. She denies any recent alcohol or illicit drug abuse. REVIEW OF SYSTEMS: CONSTITUTIONAL: Denies any fevers, chills. HEENT: Denies blurred vision, nasal congestion, headaches, earaches. RESPIRATORY: Denies cough, shortness of breath. CARDIOVASCULAR: Denies chest pain or palpitations or any syncopal episodes. GASTROINTESTINAL: Denies diarrhea or vomiting. GENITOURINARY: Denies dysuria, increased frequency or other urinary symptoms. MUSCULOSKELETAL: As noted in history of present illness, pain over the right hip joint. Denies any other joint pain. INTEGUMENTARY: As noted in history of present illness. NEUROLOGIC: Denies any numbness, paresthesias, or other neuromotor focal deficits. PHYSICAL EXAMINATION: VITAL SIGNS: Temperature 97.6. Pulse 100. Blood pressure 126/84. Respirations 18. O2 saturation 98% on room air. Admission weight 85.2 kg. GENERAL: The patient appears to be alert and oriented, in no acute distress at time of admission. HEENT: Tympanic membranes clear bilaterally. Oropharynx is pink, mucous membranes dry. NECK: Supple, nontender with full range of motion. No jugular venous distention noted. CHEST: Lungs clear to auscultation bilaterally without any rhonchi, wheezes, or rales. CARDIOVASCULAR: Regular rate and rhythm without any appreciable murmurs, gallops, or rubs. ABDOMEN: Soft, nontender. Positive bowel sounds. EXTREMITIES: There is an indurated area overlying the right hip greater trochanter area about the size of a 50 cent piece, but no obvious areas of consolidation or areas of drainage. NEUROLOGIC: The patient is alert and oriented times three. LABORATORY: White count shows leukocytosis at 14.0, hemoglobin 12.6, hematocrit 36.5, platelet count within normal limits at 320,000. Differential did show a left shift. Chemistries show sodium 130, but sugar was 285. Corrected for elevated blood sugar shows sodium 135, potassium 4.1, CO2 100, BUN 21, creatinine 0.282. Liver functions all within normal limits except for elevated alkaline phosphatase of 128. C-reactive protein elevated at 2.0. Hemoglobin A1c elevated at 10.9. Urinalysis pending. MICROBIOLOGY: MRSA surveillance culture pending. RADIOLOGY: No radiographic studies at time of admission. ASSESSMENT: 1. Abscess/cellulitis to the right hip, greater trochanteric area, with the patient likely having a staph infection and more likely methicillin-resistant Staphylococcus aureus with the patient having a longstanding history of previous infections requiring multiple hospitalizations, requiring parenteral antibiotics and initiation of antibiotics at this time to include vancomycin. 2. Leukocytosis with elevated C-reactive protein secondary to ongoing infectious process as noted in #1. 3. Type 1 diabetes mellitus, poorly controlled as noted with a hemoglobin A1c of 10 with hyperglycemic/hyperosmolar state noted on admission. 4. Hypertension. 5. History of hypothyroidism. 6. History of tobacco abuse. 7. Moderate obesity with body mass index of 32.3. PLAN: The patient will be admitted to the Medical/Surgical Floor from Dr. Roberto ' office for initiation of parenteral antibiotic to include vancomycin. She does have an allergy to cephalosporins as well as Bactrim and has failed outpatient treatment plan with clindamycin as well as doxycycline. We will start her on vancomycin per pharmacy protocol once labs are available. She is a little dry. We will give her 1 liter of fluids and continue with half normal saline with 20 of potassium at 125 an hour until the patient is adequately hydrated. She will be on a sliding scale a.c. and h.s. as per protocol. She will be on prophylaxis for DVT per protocol. We will monitor her closely and should it show an area of consolidation, we will consult with Dr. Guillory once an area looks like it is able to have incision and drainage performed. We will resume her home medications once they have been updated and verified. Until discharge, we will continue to monitor the patient closely and treat appropriately. #[id number] [facility]
[2017-04-24] MEDS ORDERED: GLUCAGON INJ 1 MG VIAL SUBCU PRN (09:28)
[2017-04-24] MEDS ORDERED: ALUM & MAG HYDROX-SIMETHICONE 30 ML UD PO PRN (09:28)
[2017-04-24] MEDS ORDERED: ACETAMINOPHEN 325 MG TAB PO PRN (09:28)
[2017-04-24] MEDS ORDERED: DEXTROSE 50% 25 GM/50 ML SYG IV PRN (09:28)
[2017-04-24] MEDS ORDERED: MORPHINE SULFATE INJ 10 MG/ML VIAL IV PRN (09:52)
[2017-04-24] MEDS ORDERED: SODIUM CHLORIDE 0.9% 1000ML 1,000 ML IVS ONE (09:56)
[2017-04-24] MEDS ORDERED: VANCOMYCIN PER PHARMACY INJ SCH (10:00)
[2017-04-24] MEDS: IV SET AND CAP CHANGE INJ INJ SCH (10:21)
[2017-04-24] MEDS: BACITRACIN 0.9 GM UD PCKT TOP SCH ×2 (10:27→20:01)
[2017-04-24] MEDS: HYDROcodone 5MG/APAP 325MG 1 EA TAB PO PRN ×2 (10:29→19:33)
[2017-04-24] MEDS ORDERED: SODIUM CHLORIDE 0.9% 250ML 250 ML ONE ×2 (11:40→19:18)
[2017-04-24] MEDS ORDERED: VANCOMYCIN HCL INJ 500 MG VIAL ONE ×2 (11:40→19:17)
[2017-04-24] MEDS ORDERED: VANCOMYCIN HCL INJ 1,000 MG VIAL IVPB ONE ×2 (11:41→19:18)
[2017-04-24] MEDS: VANCOMYCIN HCL INJ 1,000 MG, VANCOMYCIN HCL INJ 250 MG in SODIUM CHLORIDE 0.9% 250ML 25... IVPB SCH ×2 (11:46→22:37)
[2017-04-24] MEDS: INSULIN LISPRO 100 UNITS/ML PEN SUBCU SCH ×4 (11:46→20:45)
--- NOTE | 2017-04-24 19:13 | PCM.CORE ---
Physician DVT/VTE - Nurse DVT Assessment & Total Each Risk Factor Represents 3 Points: Medical PT with Hx of GA, CHF, Severe infection/sepsis Each Risk Factor is 1 Point: Obesity (BMI >25) DVT Assessment Score: 4 - 3-4 High Risk Treatments: Early Ambulation *, Sequential Compression Device Pharmacological: Enoxaparin 40 mg SQ Daily
[2017-04-24] MEDS ORDERED: rifAMPin 300 MG CAP PO ONE (19:18)
[2017-04-24] MEDS ORDERED: INSULIN DETEMIR 100 UNITS/ML PEN SUBCU ONE (19:18)
[2017-04-24] MEDS: KCL 20MEQ/0.45% NS 1,000 ML IVS PRN (19:28)
[2017-04-24] MEDS: ENOXAPARIN SODIUM 40 MG/0.4 ML SYG SUBCU SCH (19:29)
[2017-04-24] MEDS: rifAMPin 300 MG CAP PO SCH (20:01)
[2017-04-24] MEDS: INSULIN DETEMIR 100 UNITS/ML PEN SUBCU SCH (20:46)
[2017-04-24] MEDS ORDERED: SODIUM CHLORIDE 0.9% (FLUSH) 10 ML SYG IV SCH (21:00)
[2017-04-25] MEDS: KCL 20MEQ/0.45% NS 1,000 ML IVS PRN ×3 (05:09→23:39)
[2017-04-25] MEDS: HYDROcodone 5MG/APAP 325MG 1 EA TAB PO PRN ×4 (05:11→23:46)
[2017-04-25] MEDS: INSULIN DETEMIR 100 UNITS/ML PEN SUBCU SCH ×4 (07:25→21:09)
[2017-04-25] MEDS: INSULIN LISPRO 100 UNITS/ML PEN SUBCU SCH ×7 (07:31→21:08)
[2017-04-25] MEDS ORDERED: INSULIN DETEMIR 100 UNITS/ML PEN SUBCU ONE (07:48)
[2017-04-25] MEDS ORDERED: SODIUM CHLORIDE 0.9% 250ML 250 ML ONE ×2 (08:54→19:51)
[2017-04-25] MEDS ORDERED: VANCOMYCIN HCL INJ 500 MG VIAL ONE ×2 (08:54→19:51)
[2017-04-25] MEDS ORDERED: VANCOMYCIN HCL INJ 1,000 MG VIAL IVPB ONE ×2 (08:55→19:51)
[2017-04-25] MEDS ORDERED: KETOROLAC TROMETHAMINE INJ 30 MG/ML VIAL IV ONE ×2 (09:25→16:00)
[2017-04-25] MEDS: BIFIDOBACTERIUM INFANTIS 4 MG CAP PO SCH (09:33)
[2017-04-25] MEDS: LISINOPRIL 10 MG TAB PO SCH (09:33)
[2017-04-25] MEDS: rifAMPin 300 MG CAP PO SCH ×2 (09:33→21:09)
[2017-04-25] MEDS: BACITRACIN 0.9 GM UD PCKT TOP SCH ×2 (09:33→21:08)
[2017-04-25] MEDS: CHLORHEXIDINE GLUCONATE 4 % 15 ML UD TOP SCH (09:34)
[2017-04-25] MEDS: LEVOTHYROXINE SODIUM 0.1 MG TAB PO SCH (09:35)
[2017-04-25] MEDS: VANCOMYCIN HCL INJ 1,000 MG, VANCOMYCIN HCL INJ 250 MG in SODIUM CHLORIDE 0.9% 250ML 25... IVPB SCH ×2 (11:06→23:30)
--- NOTE | 2017-04-25 13:17 | PN ---
DATE: 04/25/17 SUPERVISING PHYSICIAN: Scott Calero M.D. SUBJECTIVE: The patient continues to have some pain in her right hip, although the area seems to be improving somewhat but still no areas of consolidation. Blood sugars have been fairly elevated. Will continue to work on those with her long-acting insulin with Levemir. Started MRSA decolonization protocol with Rifampin only as she is allergic to Bactrim. Her liver enzymes showed a slight elevation. Will continue to monitor this with regards to the Rifampin. She has been afebrile with no nausea or vomiting. OBJECTIVE: VITAL SIGNS: T max 98.4, pulse 101, blood pressure 131/75, respirations 20, satting 93% on room air. I's and O's show a negative balance of 1160 with 2340 in, 3500 out. Weight is 86.6 kg. CHEST: Lungs are clear to auscultation bilaterally. HEART: Regular rate and rhythm. ABDOMEN: Obese but soft, non-tender. Positive bowel sounds. EXTREMITIES: No clubbing, cyanosis or edema. Right hip area over the greater trochanter lateral aspect of the thigh shows continued area of induration, although seems to be improved today with no extension of the erythema from previous markings. There still is no obvious areas of consolidation. It remains severely tender to touch. NEUROLOGIC: She is alert and oriented times three. LABORATORY: CBC now shows normal white count at 10.2 with hemoglobin 11.9, hematocrit 35.2, platelet count 295,000. Differential is now normalized. Chemistries show improving electrolytes with sodium 134, potassium 4.0, BUN 18, creatinine 0.69, blood sugars have been elevated between 129 and 386. Liver functions show a slightly elevated AST at 56. Urinalysis showed 300 protein with 500 glucose, small amount of blood and trace leukocyte esterase yesterday, but no other abnormalities noted on microscopic exam. MICROBIOLOGY: MRSA surveillance culture shows no growth at 24 hours. ASSESSMENT: 1. Abscess cellulitis of the right hip greater trochanter area with the patient having a history of Staphylococcus infection with MRSA requiring previous hospitalizations and initiation of parenteral antibiotics with the patient showing good response after starting the vancomycin. 2. Leukocytosis with an elevated C reactive protein secondary to infectious processes noted on #1 showing improvement with normalization of her white count today. 3. Type 2 diabetes poorly controlled as noted with hemoglobin A1c of 10 with continued hypoglycemic episodes requiring ongoing management of long and short term insulin with IV fluids. 4. Hypertension. 5. History of hypothyroidism. 6. History of tobacco abuse. 7. Moderate obesity with body mass index of 32.3. PLAN: Will continue with vancomycin per Pharmacy protocol today and closely monitor the area. She will continue to utilize warm packs as needed. She will stay off the hip as appropriate with close monitoring. She will continue IV fluids as she still continues to show a negative balance. Once adequate p.o. and fluid intake and a more positive fluid balance, she will be saline locked. Will plan to increase her Levemir up to 30 b.i.d. and continued a.c. coverage with sliding scale. Will continue to monitor and treat as appropriate with close consultation with Dr. Guillory as needed this coming Thursday. Until then, will continue to monitor the patient closely and treat appropriately. #[id number] [facility]
[2017-04-25] MEDS ORDERED: KETOROLAC TROMETHAMINE INJ 30 MG/ML VIAL ONE (14:55)
--- NOTE | 2017-04-25 17:50 | RAD ---
EXAM DESCRIPTION: Chest,2 Views CLINICAL HISTORY: 31 years, Female, pain COMPARISON: Chest x-ray dated 10/06/2016 FINDINGS: PA and lateral chest radiographs were performed. The lungs are moderately expanded with linear airspace opacities in the LEFT lower lobe, new since the prior study. In addition, only seen on the frontal radiograph and overlapping with to a is a questionable slightly thick-walled cystic structure in the LEFT lower lobe. The costophrenic sulci are sharp. The cardiac silhouette, hilar regions, trachea, soft tissues and bony structures are unremarkable. IMPRESSION: LEFT lower lobe bronchitis with possible developing pneumonia. There is a question of a cystic/cavitary lesion within the LEFT lower lobe lung only seen on the frontal radiograph. Recommend CT imaging of the chest with intravenous contrast to better evaluate this region if clinically indicated. Electronically signed by: Niesha Yip MD 04/25/2017 5:48 PM CDT
[2017-04-25] MEDS: ENOXAPARIN SODIUM 40 MG/0.4 ML SYG SUBCU SCH (19:36)
[2017-04-25] MEDS: MICONAZOLE NITRATE 2 % 45 GM TUBE VAG SCH (21:09)
[2017-04-26] MEDS: HYDROcodone 5MG/APAP 325MG 1 EA TAB PO PRN ×3 (05:48→19:45)
[2017-04-26] MEDS: LEVOTHYROXINE SODIUM 0.1 MG TAB PO SCH (05:48)
[2017-04-26] MEDS: INSULIN LISPRO 100 UNITS/ML PEN SUBCU SCH ×7 (07:29→20:59)
[2017-04-26] MEDS: INSULIN DETEMIR 100 UNITS/ML PEN SUBCU SCH ×2 (08:45→21:11)
[2017-04-26] MEDS: BACITRACIN 0.9 GM UD PCKT TOP SCH ×2 (09:18→20:34)
[2017-04-26] MEDS: CHLORHEXIDINE GLUCONATE 4 % 15 ML UD TOP SCH (09:18)
[2017-04-26] MEDS: LISINOPRIL 10 MG TAB PO SCH (09:18)
[2017-04-26] MEDS: BIFIDOBACTERIUM INFANTIS 4 MG CAP PO SCH (09:18)
[2017-04-26] MEDS ORDERED: MAGNESIUM HYDROXIDE 30 ML UD PO ONE (09:31)
[2017-04-26] MEDS: PANTOPRAZOLE SODIUM IV 40 MG VIAL IV SCH (10:40)
[2017-04-26] MEDS: POLYETHYLENE GLYCOL 3350 17 GM PCKT PO SCH (10:40)
[2017-04-26] MEDS: VANCOMYCIN HCL INJ 1,000 MG, VANCOMYCIN HCL INJ 250 MG in SODIUM CHLORIDE 0.9% 250ML 25... IVPB SCH (12:18)
[2017-04-26] MEDS ORDERED: SODIUM CHLORIDE 0.9% 250ML 250 ML ONE ×2 (12:32→19:27)
[2017-04-26] MEDS ORDERED: VANCOMYCIN HCL INJ 1,000 MG VIAL IVPB ONE ×2 (12:32→19:28)
--- NOTE | 2017-04-26 12:35 | PN ---
DATE: 04/26/17 SUPERVISING PHYSICIAN: Scott Calero M.D. SUBJECTIVE: The patient remains afebrile. She did have a little episode of left upper quadrant pain yesterday with EKG showing normal sinus rhythm and normal cardiac troponins. She denies any nausea but has noted that she does take Linzess and has not had a bowel movement in several days. The area on the hip shows to be some improvement but continues to be quite painful. OBJECTIVE: VITAL SIGNS: T max 98.4, pulse 87, blood pressure 126/79, respirations 18, satting 95% on room air. I's and O's show a positive balance of 2542 with 3942 in, 1400 out. CHEST: Lungs are clear to auscultation. HEART : Regular rate and rhythm. ABDOMEN: Obese with some tenderness noted on the left lower quadrant. No rebound tenderness. No guarding. Bowel sounds are present. EXTREMITIES: No clubbing, cyanosis or edema. The area of concern on the right hip still remains stable with no obvious areas of consolidation or fluctuation. NEUROLOGIC: She is alert and oriented times three. LABORATORY: White count remains normal at 8.5, hemoglobin 10.9, hematocrit 31.6. Differential today shows to be within normal limits. Chemistries show normal electrolytes with sodium 136, potassium 3.8, BUN 17, creatinine 0.67. Blood sugars have been much better controlled ranging from 99 to 169. Liver functions do show elevation with AST 371, ALT 130, alkaline phosphatase at 140. Again, she was started on Rifampin. Pancreatic enzymes remain negative for any acute changes. Vancomycin trough is 16.8. Hepatitis panel is pending. MICROBIOLOGY: MRSA surveillance cultures showed no growth at 48 hours. RADIOLOGY: Chest x-ray per radiology interpretation yesterday after the patient noticed she was having some chest pains shows left lower lobe bronchitis with the possibility of pneumonia with a question of a cystic cavitary lesion within the left lower lobe only seen on the radiographic study. Recommend CT imaging of the chest with intravenous contrast to better evaluate the region if clinically indicated. ASSESSMENT: 1. Abscess cellulitis of the right hip greater trochanter area with the patient having a past history of Staphylococcus infections, concern for Methicillin resistant Staphylococcus aureus with the patient having been initiated on antibiotics to include Vancomycin with MRSA surveillance cultures being negative. 2. Leukocytosis with an elevated C reactive protein secondary to ongoing infectious processes as noted on #1. 3. Type 2 diabetes poorly controlled with hemoglobin A1c of 10 with hypoglycemic hyperosmolar state on admission. 4. Left upper quadrant pain with radiographic findings concerning for left lower lobe pneumonia with a cystic cavitary lesion within the left lower lobe requiring further followup with CT possibly resulting in left upper quadrant pain versus gastroparesis versus pancreatitis, although the patient's liver enzymes are elevated, her pancreatic enzymes have been within normal limits and leukocytosis has resolved. 5. Hypertension. 6. History of hypothyroidism. 7. History of tobacco abuse. 8. Moderate obesity with body mass index of 32.3. 9. Elevated liver function tests likely secondary to Rifampin administration for MRSA surveillance protocol medication with antibiotics being stopped secondary to the acute elevated enzymes and further testing for hepatitis panel pending. PLAN: Will continue with Pharmacy protocol for vancomycin dosing. The hip does show improvement. Given that she has had some left upper quadrant pain and findings on the chest films from yesterday with negative cardiac enzymes and concerns for radiographic studies showing some possible bronchitis pneumonia , will go ahead and do a CT with contrast as per the recommendations to further evaluate findings on radiographic studies yesterday. She will remain on sliding scale on Levemir as her blood sugar has been well controlled. Will continue to watch the area of concern on the right hip and consult with Dr. Guillory tomorrow in regards to possibly doing an incision and drainage should that area show areas of consolidation. In regards to the elevated liver function tests, I did stop her Rifampin and have a pending hepatitis panel. Will continue to monitor this closely as well as the patient has noted that she feels like she may be constipated, therefore will start on some MiraLAX in efforts to relieve some of the constipation. Will anticipate at least another 24 to 48 hours of parenteral antibiotics and consultation tomorrow with Dr. Guillory. Until then, will continue to monitor and treat appropriately. #[id number] [facility]
[2017-04-26] MEDS: VANCOMYCIN HCL INJ 1,000 MG in SODIUM CHLORIDE 0.9% 250ML 250 ML IVPB SCH (13:00)
--- NOTE | 2017-04-26 13:25 | CT ---
EXAM DESCRIPTION: Chest w/Contrast CLINICAL HISTORY: thick-walled cystic structure on left lower lobe COMPARISON: Chest radiograph April 25, 2017 TECHNIQUE: Chest CT was performed without IV contrast. This exam was performed according to our departmental dose-optimization program, which includes automated exposure control, adjustment of the mA and/or kV according to patient size and/or use of iterative reconstruction technique. FINDINGS: The thoracic aorta is unremarkable. No mediastinal or hilar adenopathy. No pleural or pericardial effusion. The central airways are clear. There is platelike atelectasis or scarring in both lungs. No airspace consolidation is identified. No lung mass or suspicious lung nodule. Specifically, no left basilar nodule is identified. Findings from patient's recent chest radiograph are likely related to subsegmental atelectasis and/or superimposition artifact. Visualized portions of the upper abdomen are unremarkable. No fracture or pneumothorax. IMPRESSION: Platelike atelectasis or scarring in both lungs, but no suspicious lung nodule, pneumonia or other intrathoracic abnormality to correlate with findings from recent chest radiograph. Findings in the prior exam and likely related to subsegmental atelectasis and/or superimposition artifact. Electronically signed by: Gutierrez Aceves MD 04/26/2017 1:24 PM CDT Workstation: [id number]
[2017-04-26] MEDS: ENOXAPARIN SODIUM 40 MG/0.4 ML SYG SUBCU SCH (19:38)
[2017-04-26] MEDS: MICONAZOLE NITRATE 2 % 45 GM TUBE VAG SCH (20:20)
[2017-04-27] MEDS: SODIUM CHLORIDE 0.9% (FLUSH) 10 ML SYG IV PRN ×2 (00:01→06:07)
[2017-04-27] MEDS: VANCOMYCIN HCL INJ 1,000 MG in SODIUM CHLORIDE 0.9% 250ML 250 ML IVPB SCH ×2 (00:01→12:12)
[2017-04-27] MEDS: PANTOPRAZOLE SODIUM IV 40 MG VIAL IV SCH (06:07)
[2017-04-27] MEDS: LEVOTHYROXINE SODIUM 0.1 MG TAB PO SCH (06:07)
[2017-04-27] MEDS: INSULIN LISPRO 100 UNITS/ML PEN SUBCU SCH ×5 (08:04→11:59)
[2017-04-27] MEDS: INSULIN DETEMIR 100 UNITS/ML PEN SUBCU SCH (08:55)
[2017-04-27] MEDS: LISINOPRIL 10 MG TAB PO SCH (09:02)
[2017-04-27] MEDS: CHLORHEXIDINE GLUCONATE 4 % 15 ML UD TOP SCH (09:03)
[2017-04-27] MEDS: BACITRACIN 0.9 GM UD PCKT TOP SCH (09:03)
[2017-04-27] MEDS: BIFIDOBACTERIUM INFANTIS 4 MG CAP PO SCH (09:03)
[2017-04-27] MEDS: POLYETHYLENE GLYCOL 3350 17 GM PCKT PO SCH (09:03)
[2017-04-27] MEDS: IV SET AND CAP CHANGE INJ INJ SCH (09:04)
--- NOTE | 2017-04-27 10:46 | US ---
EXAM DESCRIPTION: Soft Tissue,Extremity CLINICAL HISTORY: 31 years Female, right hip abcess COMPARISON: None. FINDINGS: Ultrasound superficial soft tissues area of palpable abnormality right lateral hip region shows strandy subcutaneous edema with no drainable fluid collection observed. No abnormal vascularity observed. IMPRESSION: Deep subcutaneous edema Electronically signed by: Syed Yip MD 04/27/2017 10:45 AM CDT
[2017-04-27] MEDS ORDERED: SODIUM CHLORIDE 0.9% 250ML 250 ML ONE (11:41)
[2017-04-27] MEDS ORDERED: VANCOMYCIN HCL INJ 1,000 MG VIAL IVPB ONE (11:42)
[2017-04-27] MEDS ORDERED: KETOROLAC TROMETHAMINE INJ 30 MG/ML VIAL ONE (11:48)
[2017-04-27] MEDS ORDERED: KETOROLAC TROMETHAMINE INJ 30 MG/ML VIAL IV ONE (11:53)
[2017-04-27 14:19] VITALS: BP 131/81; TEMP 98.1; O2SAT 98
[2017-04-28] MEDS ORDERED: PANTOPRAZOLE SODIUM TAB 40 MG PO SCH (06:30)
--- NOTE | 2017-05-04 10:34 | DS ---
SUPERVISING PHYSICIAN: Chevy Bates MD DISCHARGE DIAGNOSIS: 1. Abscess cellulitis of the right hip, greater trochanter area, with the patient having a past history of Staphylococcus infections with the patient having shown poor response in the outpatient setting to initial antibiotic therapy, requiring hospitalization for initiation of vancomycin with the patient having good response to antibiotic therapy. 2. Leukocytosis with an elevated C-reactive protein secondary infectious process as noted in #1. 3. Type 2 diabetes mellitus, poorly controlled with hemoglobin A1c on admission of 10 with hypoglycemic/hyperosmolar state on admission. 4. Left upper quadrant pain initially with concerns for left lower lobe pneumonia based on radiographic studies with repeat CT within normal limits, felt to be likely secondary to underlying constipation with no other pathology noted. 5. Hypertension. 6. History of hypothyroidism. 7. History of tobacco abuse, encouraged to stop smoking. 8. Moderate obesity with body mass index of 32.3. 9. Elevated liver function tests, secondary to Rifampin administration for methicillin-resistant Staphylococcus aureus eradication medication protocol with hepatitis panel being nonreactive for A, B and C with Rifampin stopped prior to discharge, needing close followup. 10. Vaginitis secondary to yeast infection from complications from high blood sugars and ongoing infectious process, showing improvement after initiation of miconazole topically. 11. Constipation, improved with MiraLAX and Milk of Magnesia. HISTORY OF PRESENT ILLNESS: Ms. Saavedra is a 31-year-old, female patient of Dr. Hill. She has a longstanding history of insulin dependent diabetes mellitus and multiple staph infections n the past with last hospitalization required in December of 2016 for an abscess to her upper left arm. She started noticing on 04/21/17 that she had an area on her right hip overlying the greater trochanteric area that was becoming sore and red. She went to the clinic given her history of previous infections requiring hospitalization and was placed on antibiotics to include clindamycin as well as given a shot of Rocephin. She presented back to Dr. Roberto' office the morning of admission and it was noted that the area was showing minimal improvement. Given that the patient is a fairly brittle diabetic and has longstanding history of methicillin-resistant Staphylococcus aureus infections, Dr. Roberto requested the patient be admitted to the hospital for initiation of parenteral antibiotic to include vancomycin. She was admitted directly from the clinic in stable condition. LABORATORY: CBC on admission did show a leukocytosis. This resolved prior to discharge and at discharge, white count was 10.2. Hemoglobin and hematocrit were stable at 11.5 and 33.8. Platelet count was 337,000. Differential did show a left shift initially, but resolved after initiation of antibiotics. Chemistries on admission showed sodium 130 although blood glucose on admission was 285, corrected showed sodium 135, potassium 4.2, BUN 21, creatinine 0.82. Initial liver functions were within normal limits except for just a slightly elevated alkaline phosphatase at 128. C-reactive protein was high at 2.0. Serum HCG was negative. Amylase and lipase were within normal limits. Blood sugars were fairly elevated, ranging from 89 to 386 at maximum with blood sugar at discharge being 197. At discharge, electrolytes had normalized. Potassium was 4.2, sodium 135, blood 197. Liver function had continued to show elevation and at discharge, AST was 126, ALT 140, alkaline phosphatase 155. Urinalysis on admission showed greater than 300 protein, 500 glucose, negative ketones, small amount of blood, trace leukocyte esterase. Microscopic was within normal limits. Vancomycin trough after initiation of vancomycin showed 16.8. She had a hepatitis panel that was nonreactive to A, B and C. MICROBIOLOGY: MRSA surveillance culture was negative at 72 hours. RADIOLOGY: Chest x-ray performed due to the patient complaining of left upper quadrant pain showed left lower lobe bronchitis and possibly developing pneumonia with question of a cystic cavitary lesion within the left lower lobe, only seen on the frontal radiographic study. This was followed up with a CT of the chest and per radiologic interpretation showed platelike atelectasis or scarring in both lungs, but no suspicious lung nodule, pneumonia or other intrathoracic abnormality to correlate with findings from radiographic films. Findings in the prior exam and likely related to subsegmental atelectasis and/ or superimposition artifact. On date of discharge, she had a soft tissue ultrasound of the area in question and per radiologic interpretation showed strandy subcutaneous edema, but no drainable fluid collections observed, no abnormal vasculature was observed. HOSPITAL COURSE: Ms. Saavedra was admitted on 04/24/17 for abscess of the right hip. She was started on vancomycin per protocol. She remained on parenteral antibiotics through admission and showed good improvement of the area of concern. It never did show areas of consolidation and after 3 days of treatment with vancomycin and a followup ultrasound, there was again no area identified of area of concern that could have been drained by incision and drainage. Her blood sugars were better controlled once she was resumed on long- acting insulin and it was felt on the date of discharge that she had clinically shown improvement and response to antibiotic therapy well enough to be followed in the outpatient setting. The patient did have some left upper quadrant and chest wall pain that was examined with both a chest x-ray and CT scan of the chest with no abnormal findings. She was also having some issues with constipation which was felt to be the cause of the left upper quadrant pain with good improvement after Milk of Magnesia and a bowel movement. PLAN: Ms. Saavedra was discharged on 04/27/17 with instructions to followup with Dr. Roberto, her primary care physician, as scheduled on 05/05/17 at 1515. She was start new medications that included doxycycline on 04/28/17 to take to completion. She was to utilize Motrin for pain as instructed and to avoid all Tylenol containing medications as well as alcohol. She was to monitor her blood sugars and follow an ADA diet to better control her blood sugars and encourage to fluids to prevent dehydration. She was to return to the hospital if she had any worsening of her condition. DIET AT DISCHARGE: Diabetic. ACTIVITY: Increase as tolerated. PRESCRIPTION AT DISCHARGE: 1. Motrin 240 mg q.8h. as needed for pain. 2. Align 4 mg daily, #30. 3. Doxycycline 100 mg twice daily, #20. 4. Monistat 7 cream vaginally at bedtime. 5. MiraLAX 17 grams daily. #[id number] [facility]
== END 2017-04-27 14:45 | disposition home or self-care (01) | DRG 602 ==
LOC: MS 09:10
PROVIDERS: ADMIT Nurse Practitioner Family; ATTEND Nurse Practitioner Family
DX: L02.415 Cutaneous abscess of right lower limb (principal); E11.00 Type 2 diabetes mellitus with hyperosmolarity without nonketotic hyperglycemic-hyperosmolar coma (NKHHC); L03.115 Cellulitis of right lower limb; E78.5 Hyperlipidemia, unspecified; I10 Essential (primary) hypertension; E10.42 Type 1 diabetes mellitus with diabetic polyneuropathy; E10.319 Type 1 diabetes mellitus with unspecified diabetic retinopathy without macular edema; F31.9 Bipolar disorder, unspecified; F41.9 Anxiety disorder, unspecified; K59.09 Other constipation; K74.60 Unspecified cirrhosis of liver; B95.62 Methicillin resistant Staphylococcus aureus infection as the cause of diseases classified elsewhere; E03.9 Hypothyroidism, unspecified; R74.8 Abnormal levels of other serum enzymes; T36.6X5A Adverse effect of rifampicins, initial encounter; Y92.230 Patient room in hospital as the place of occurrence of the external cause; Z79.4 Long term (current) use of insulin; E66.9 Obesity, unspecified; Z88.1 Allergy status to other antibiotic agents; Z88.3 Allergy status to other anti-infective agents; Z68.32 Body mass index [BMI] 32.0-32.9, adult; Z79.899 Other long term (current) drug therapy

== ENCOUNTER → 2017-06-22 | Emergency (ER) | payer OTHER ==
[~2017-06-22] MED LIST: ACETAMINOPHEN W/COD #3 TAB (ER Disp) PO ONE; CLINDAMYCIN IV 900MG 50 ML IVPB ONE; HYDROmorphone HCL INJ 2 MG/ML VIAL IV ONE; LIDOCAINE 1% 10 ML VIAL INJ ONE; ONDANSETRON INJ 4 MG/2 ML VIAL IV ONE; PLAIN PACKING STRIP 1/4 1 EA BTTL TOP ONE; POVIDONE IODINE 10 % 15 ML UD TOP ONE; SODIUM CHLORIDE 0.9% 1000ML 1,000 ML IVS ONE; cloNIDine HCL 0.1 MG TAB PO ONE
== END ==
LOC: ER 15:32
DX: L02.414 Cutaneous abscess of left upper limb (principal)
CPT/HCPCS: 36415; 80053; 81001; 85025; 87040; 87070; J1170; J2405; J3490; J7030

== ENCOUNTER 2017-09-02 10:41 | Emergency (ER) | payer BC, OTHER ==
[2017-09-02 11:04] VITALS: TEMP 97.9
[2017-09-02] MEDS ORDERED: KETOROLAC TROMETHAMINE INJ 30 MG/ML VIAL IV ONE (11:53)
[2017-09-02] MEDS ORDERED: KETOROLAC TROMETHAMINE INJ 30 MG/ML VIAL ONE (11:55)
--- NOTE | 2017-09-02 12:10 | CT ---
EXAM DESCRIPTION: Abdoment/Pelvis w/o Contrast: Computed Tomography. CLINICAL HISTORY: LEFT FLANK PAIN, HEMATURIA COMPARISON: None. TECHNIQUE: Spiral-axial scans at 5.0 mm intervals through the abdomen and pelvis. Coronal and sagittal 2.0mm reconstructions. No IV or oral contrast. Total Exam DLP: 1208.62 mGy-cm. This exam was performed according to our departmental CT dose-optimization program which includes automated exposure control, adjustment of the mA and/or kV according to patient size and/or use of iterative reconstruction technique; to reduce radiation dose to as low as reasonably achievable (ALARA). FINDINGS: Kidneys and Ureters: Bilateral kidneys show radiodense material in the upper and lower collecting systems. 3.4 mm stone in the upper pole medially just above the renal pelvis. 3 mm stone posterior mid collecting system. Possibly 2 mm stone in the inferior collecting system. Less than 2 mm stone in the lateral mid collecting system right kidney. No hydronephrosis bilaterally or perirenal fatty stranding. Bilateral ureters normal caliber with no radiodense stones, no hydroureter or periureteral stranding. Pelvic Organs: No radiodense stones in the urinary bladder which is minimally distended. Uterus retroverted or retroflexed. Bilateral ovaries are visualized. No fluid in the cul-de-sac. No enlarged lymph nodes. Lung and pleura bases: Negative. Liver, spleen, stomach, and adrenal glands: Diffuse low-density in the liver. Long axis of the right lobe is 21.2 cm. No intrahepatic biliary dilatation.. No focal lesions. Stomach unremarkable. Other solid organs are negative. Pancreas, Gallbladder, Ducts: Gallbladder is visualized. Common bile duct not dilated. Aorta: Moderate atherosclerotic calcification mid and distal abdominal aorta notable for patient's age. Also atherosclerotic calcification in the bilateral proximal common iliac arteries and the bilateral proximal internal iliac arteries. Normal outer caliber of these vessels. Small Bowel: Unremarkable. Terminal Ileum/Cecum: Gas distending the TI. Fecal matter in the cecum. Normal caliber of the appendix. Normal density of the surrounding fat. Colon: Fecal material throughout. No distention or air-fluid levels. Minimal redundancy of the sigmoid colon. Mesentery: No stranding or fascial thickening. No free fluid or free air. Spine and Bony Pelvis: Bilateral acetabular subchondral radiolucencies with minimal narrowing of the superior hip joints. Abdominal Wall/Back Soft Tissues: Diastases at the umbilicus but not containing bowel, only fat. Large patient body habitus. Bilateral fatty inguinal hernias not containing bowel. IMPRESSION: 1. Minimal gravel bilateral renal collecting systems. 2 radiodense stones in the left collecting system, 3.0 to 3.5 mm in diameter. Larger stone superior to the renal pelvis. No hydronephrosis hydroureter or ureteral stones bilaterally. No radiodense stones in the bladder. 2. Steatosis and enlarged liver. Obesity is noted. No ascites. No intrahepatic duct dilation. Smooth capsule. 3. Uterus retroverted or retroflexed. Ovaries visualized. No free fluid. 4. Atherosclerotic calcification in the mid and distal abdominal aorta and the common iliac and internal iliac vessels, notable for patient's age. No abnormal caliber of the outer collado. 5. Bilateral acetabular subchondral defects with hip joint space narrowing, also notable patient's age. Normal CT appearance of the appendix. Abdominal wall diastases at the umbilicus but no bowel hernia. Inguinal hernias containing fat only. Electronically signed by: Oj Medina MD 09/02/2017 12:09 PM [facility]
[2017-09-02] MEDS ORDERED: MORPHINE SULFATE INJ 10 MG/ML VIAL IV ONE (12:26)
[2017-09-02] MEDS ORDERED: ONDANSETRON INJ 4 MG/2 ML VIAL IV ONE (12:27)
--- NOTE | 2017-09-02 12:31 | ED.PDOC ---
History of Present Illness - General Chief Complaint: Problem Stated Complaint: flank pain Time Seen by Provider: 09/02/17 10:54 Source: patient Exam Limitations: no limitations - History of Present Illness Initial Comments: LEFT FLANK PAIN, ONSET THURSDAY. IT HIT HER LIKE A TON OF BRICKS. ASSOCIATED NAUSEA, DENIES ANY FEVER. Timing/Duration: other - THREE DAYS Severity: severe Improving Factors: nothing Worsening Factors: nothing Associated Symptoms: denies symptoms Allergies/Adverse Reactions: Allergies Cephalexin [From Keflex] Allergy (Verified 12/29/16 20:56) Rash Sulfamethoxazole w/Trimethoprim [From Bactrim] Allergy (Verified 12/29/16 20:56) Rash Home Medications: Ambulatory Orders Insulin Aspart [Novolog Flexpen] 10 unit SC TIDFD #0 02/04/14 Insulin Glargine [Lantus] 31 unit SC BID 02/04/14 Levothyroxine Sodium 100 mcg PO DAILY 05/04/15 Lisinopril 20 mg PO DAILY 04/14/16 Bifidobacterium Infantis [Align] 4 mg PO DAILY 04/27/17 Doxycycline Hyclate [Vibramycin] 100 mg PO BID #20 cap 04/27/17 Ibuprofen [Motrin] 200 - 400 mg PO Q8HR PRN #30 tab 04/27/17 Miconazole Nitrate 2 % Vag Cr [Monistat-7 Cream] 1 applic VAG BEDTIME 04/27/17 Polyethylene Glycol 3350 [Miralax] 17 gm PO DAILY 04/27/17 Tramadol HCl 50 mg PO Q6HRS #20 tab 09/02/17 levoFLOXacin [Levaquin] 500 mg PO DAILY #10 tab 09/02/17 Review of Systems - Review of Systems Constitutional: States: no symptoms reported EENTM: States: no symptoms reported Respiratory: States: no symptoms reported Cardiology: States: no symptoms reported Gastrointestinal/Abdominal: States: no symptoms reported Genitourinary: States: dysuria, pain Musculoskeletal: States: back pain Skin: States: no symptoms reported Neurological: States: no symptoms reported Endocrine: States: no symptoms reported Hematologic/Lymphatic: States: no symptoms reported Past Medical History (General) - Patient Medical History Hx Seizures: No Hx Stroke: No Hx Dementia: No Hx Asthma: No Hx of COPD: No Hx Cardiac Disorders: No Hx Congestive Heart Failure: No Hx Pacemaker: No Hx Hypertension: No Hx Thyroid Disease: Yes Hx Diabetes: Yes Hx Gastroesophageal Reflux: No Hx Renal Disease: No Hx Cancer: No Hx of HIV: No Hx Hepatitis C: No Hx MRSA: No Surgical History: other - Vaccination History Hx Tetanus, Diphtheria Vaccination: Yes Hx Influenza Vaccination: Yes Hx Pneumococcal Vaccination: No - Social History Hx Tobacco Use: Yes Hx Chewing Tobacco Use: No Hx Alcohol Use: No Hx Substance Use: No Hx Substance Use Treatment: No Hx Depression: No Hx Physical Abuse: No Hx Emotional Abuse: No Hx Suspected Abuse: No - Female History Patient is a Female of Child Bearing Age (10 -59 yrs old): Yes Hx Last Menstrual Period: 02/02/14 Patient : No Family Medical History - Family History Father Living Status: Still Living Hx Family Asthma: No Hx Family Congestive Heart Failure: No Hx Family Hypertension: Yes Hx Family Stroke: No Hx Cardiac Disease: No Hx Family Diabetes: Yes Hx Family Cancer: No Mother Family History: No Known Living Status: Still Living Hx Family Asthma: No Hx Family Congestive Heart Failure: No Hx Family Hypertension: No Hx Family Stroke: Yes Hx Cardiac Disease: No Hx Family Diabetes: Yes - dad Hx Family Cancer: No Hx Family;Other: Bipolar, Thyroid Physical Exam - Physical Exam General Appearance: Alert, Obvious distress, Well Developed, Well Groomed, Well Hydrated, Well Nourished Eye Exam: bilateral normal Ears, Nose, Throat: hearing grossly normal, normal ENT inspection, normal pharynx Neck: non-tender, full range of motion, supple, normal inspection Respiratory: chest non-tender, lungs clear, normal breath sounds, no respiratory distress, no accessory muscle use Cardiovascular/Chest: normal peripheral pulses, regular rate, rhythm, no edema, no gallop, no JVD, no murmur Peripheral Pulses: radial,right: 2+, radial,left: 2+ Gastrointestinal/Abdominal: normal bowel sounds, non tender, soft, no organomegaly, no pulsatile mass Rectal Exam: deferred Back Exam: CVA tenderness (L) Neurologic: no motor/sensory deficits, alert, normal mood/affect, oriented x 3 Skin Exam: normal color Lymphatic: no adenopathy Progress - Results/Orders Results/Orders: CT ABDOMEN IS REPORTEDNEPHROCALCINOSIS, NO OBSTRUCTING STONES NOTED. LAB FROM DR. BEATTY OFFICE: BS: 409, UA 30-40 WBC CASE DISCUSS[address] WITH DR. BEATTY. WILL TREAT WITH LEVAQUIN, TRAMADOL AND WILL F/U WITH DR. BEATTY TOMORROW. Departure - Departure Clinical Impression: Renal colic on left side Diabetes mellitus Qualifiers: Diabetes mellitus type: type 1 Diabetes mellitus complication status: without complication Qualified Code(s): E10.9 - Type 1 diabetes mellitus without complications Time of Disposition: 13:24 Disposition: Discharge to Home or Self Care Condition: Good Departure Forms: ED Discharge - Pt. Copy, Patient Portal Self Enrollment Instructions: DI for Kidney Infection, DI for Kidney Stones Diet: resume usual diet Activity: increase activity as tolerated Prescriptions: Tramadol HCl 50 mg PO Q6HRS #20 tab levoFLOXacin [Levaquin] 500 mg PO DAILY #10 tab Home Medications: Ambulatory Orders Insulin Aspart [Novolog Flexpen] 10 unit SC TIDFD #0 02/04/14 Insulin Glargine [Lantus] 31 unit SC BID 02/04/14 Levothyroxine Sodium 100 mcg PO DAILY 05/04/15 Lisinopril 20 mg PO DAILY 04/14/16 Bifidobacterium Infantis [Align] 4 mg PO DAILY 04/27/17 Doxycycline Hyclate [Vibramycin] 100 mg PO BID #20 cap 04/27/17 Ibuprofen [Motrin] 200 - 400 mg PO Q8HR PRN #30 tab 04/27/17 Miconazole Nitrate 2 % Vag Cr [Monistat-7 Cream] 1 applic VAG BEDTIME 04/27/17 Polyethylene Glycol 3350 [Miralax] 17 gm PO DAILY 04/27/17 Tramadol HCl 50 mg PO Q6HRS #20 tab 09/02/17 levoFLOXacin [Levaquin] 500 mg PO DAILY #10 tab 09/02/17
[2017-09-02] MEDS ORDERED: levoFLOXacin 500 MG TAB PO ONE (12:40)
[2017-09-02] MEDS ORDERED: SODIUM CHLORIDE 0.9% 1000ML 1,000 ML IVS ONE (12:40)
[2017-09-02] MEDS ORDERED: INSULIN, REG.(HUMAN) 100 U/ML VIAL SUBCU ONE (12:41)
[2017-09-02 14:57] VITALS: BP 178/117; O2SAT 99
== END 2017-09-02 14:58 | disposition home or self-care (01) ==
LOC: ER 10:41
DX: N23 Unspecified renal colic (principal); E83.59 Other disorders of calcium metabolism; N29 Other disorders of kidney and ureter in diseases classified elsewhere; E10.9 Type 1 diabetes mellitus without complications; Z87.891 Personal history of nicotine dependence; Z79.4 Long term (current) use of insulin; Z79.899 Other long term (current) drug therapy
CPT/HCPCS: 36416; 74176; 82948; J1885; J2270; J2405; J7030

== ENCOUNTER → 2017-09-02 | Outpatient (CLI) | payer BC | LOC: GMAL 12:53 | PROVIDERS: ATTEND Family Medicine | DX: R10.84 Generalized abdominal pain (principal) ==

== ENCOUNTER → 2017-09-14 | Outpatient (CLI) | payer BC | LOC: GMAL 16:24 | PROVIDERS: ATTEND Family Medicine | DX: N39.0 Urinary tract infection, site not specified (principal) ==

== ENCOUNTER → 2017-10-01 | Outpatient (CLI) | payer BC ==
--- NOTE | 2017-10-01 09:18 | RAD ---
EXAM DESCRIPTION: Pelvis,2 or More Views CLINICAL HISTORY: 31 years Female, BI LAT HIP PAIN COMPARISON: None. TECHNIQUE: AP and frog leg lateral views of both hips including the pelvis FINDINGS: Bones of the pelvic ring appear intact. Normal intact appearance of the sacrum and lower lumbar spine. No hip dislocation. Tiny ossific density seen along the lateral margin of the left acetabulum. Flattened anterior femoral head neck junctions noted bilaterally with mild subchondral sclerosis suggesting cam impingement type anatomy. Clinical correlation recommended. No hip fracture or bony destructive lesion. IMPRESSION: Negative for fracture or dislocation. See above. Electronically signed by: Juan Villela MD 10/01/2017 9:17 AM [facility]
== END ==
LOC: RAD 07:54
PROVIDERS: ATTEND Orthopaedic Surgery
DX: M25.551 Pain in right hip (principal); M25.552 Pain in left hip

== ENCOUNTER → 2017-12-08 | Outpatient (CLI) | payer BC | LOC: GMAJS 12:14 | PROVIDERS: ATTEND Physician Assistant | DX: R51 Headache (principal); M54.5 Low back pain ==

== ENCOUNTER → 2018-02-17 | Outpatient (CLI) | payer BC | LOC: GMATM 17:52 | PROVIDERS: ATTEND Nurse Practitioner Family | DX: R06.02 Shortness of breath (principal) ==

== ENCOUNTER → 2018-02-25 | Outpatient (CLI) | payer BC | LOC: LAB.O 09:23 | PROVIDERS: ATTEND Family Medicine | DX: E11.9 Type 2 diabetes mellitus without complications (principal); E34.9 Endocrine disorder, unspecified; R53.82 Chronic fatigue, unspecified ==

== ENCOUNTER 2018-03-18 10:57 | Emergency (ER) | payer BC ==
[2018-03-18] MEDS ORDERED: SODIUM CHLORIDE 0.9% 1000ML 1,000 ML IVS ONE (10:59)
[2018-03-18 11:47] VITALS: TEMP 97.9; O2SAT 99
[2018-03-18 13:12] VITALS: BP 154/92
[2018-03-18] MEDS ORDERED: INSULIN, REG.(HUMAN) 100 U/ML VIAL SUBCU ONE (14:20)
[2018-03-18] MEDS ORDERED: INSULIN, REG.(HUMAN) 100 U/ML VIAL ONE (14:22)
--- NOTE | 2018-03-18 18:51 | RAD ---
EXAM DESCRIPTION: Abdomen Series CLINICAL HISTORY: 32-year-old female. lbp, dm COMPARISON: 05/08/[address] abdomen and pelvis 09/02/2017. FINDINGS: One upright and one supine view of the abdomen. No free intraperitoneal air. Nonobstructive bowel gas pattern. No focally dilated loop of bowel. Moderate amount of stool throughout the large bowel. Osseous structures without acute finding. IMPRESSION: Nonobstructive bowel gas pattern. Electronically signed by: Angelina Hyatt MD 03/18/2018 6:49 PM CDT
== END 2018-03-18 14:30 | disposition home or self-care (01) ==
LOC: ER 10:57
DX: M54.5 Low back pain (principal); E86.0 Dehydration; K59.00 Constipation, unspecified; E10.9 Type 1 diabetes mellitus without complications; I10 Essential (primary) hypertension; E78.00 Pure hypercholesterolemia, unspecified; Z79.4 Long term (current) use of insulin
CPT/HCPCS: 36415; 74019; 80053; 81025; 82150; 82550; 82553; 83605; 83690; 83735; 83880; 84443; 84484; 85025; 85379; 85610; 85730; 93005; J7030

== ENCOUNTER 2018-05-27 15:29 | Emergency (ER) | payer BC ==
[2018-05-27] MEDS ORDERED: LIDOCAINE 1% 10 ML VIAL INJ ONE (15:45)
[2018-05-27] MEDS ORDERED: IODOFORM 1/4 INCH 1 EA BTTL TOP ONE (15:49)
[2018-05-27] MEDS ORDERED: HYDROcodone 7.5MG/APAP 325MG 1 EA TAB PO ONE (16:19)
--- NOTE | 2018-05-27 17:19 | RAD ---
EXAM DESCRIPTION: Femur,Right CLINICAL HISTORY: 32 years Female, prox, lateral right thigh deep abscess COMPARISON: None. FINDINGS: Two views of the right femur demonstrate mild degenerative joint narrowing involving the hip joint with intact femoral head and neck trochanteric region and femoral shaft. No abnormality at the knee is noted. Soft tissue swelling in the subcutaneous tissues of the lateral proximal thigh are evident but no evidence of bony destructive changes or subcutaneous gas noted. IMPRESSION: Soft tissue swelling subcutaneously over the anterolateral proximal thigh without underlying bony abnormality. Electronically signed by: Scott Acevedo MD 05/27/2018 5:18 PM CDT
--- NOTE | 2018-05-27 17:27 | ED.PDOC ---
History of Present Illness - General Chief Complaint: Skin/Abrasion/Tear Stated Complaint: R hip/upper thigh abscess Time Seen by Provider: 05/27/18 15:38 Source: patient Exam Limitations: no limitations - History of Present Illness Initial Comments: the patient is a 32-year-old female presenting to the emergency room secondary to a large persistent abscess to her right upper lateral thigh. It is been present for almost a week according to her and she has already been on amoxicillin and has just started taking Clindamycin. The patient presents because she cannot take the pain any longer. No definite fevers. the risk and benefits of I&D were explained including the possibility of mild decreased sensation distally and patient agrees to proceed. overlying areas cleaned with alcohol swabs. A #15 blade is used to make a three-quarter inch incision latitudinally in the plane of the abscess. approximately 30 cc of pus was obtained. The cavity was explored with a sterile cotton tip swab and septations were broken. Culture was taken. Iodoform gauze was used to pack the wound. Dressing was applied. Timing/Duration: unsure Severity: severe Improving Factors: nothing Worsening Factors: movement Associated Symptoms: denies symptoms, malaise Allergies/Adverse Reactions: Allergies Cephalexin [From Keflex] Allergy (Verified 05/27/18 16:09) Rash Sulfamethoxazole w/Trimethoprim [From Bactrim] Allergy (Verified 05/27/18 16:09) Rash Home Medications: Ambulatory Orders Insulin Aspart [Novolog Flexpen] 10 unit SC TIDFD #0 02/04/14 Insulin Glargine [Lantus] 36 unit SC BID 02/04/14 Levothyroxine Sodium 100 mcg PO DAILY 05/04/15 Lisinopril 20 mg PO DAILY 04/14/16 Ibuprofen [Motrin] 200 - 400 mg PO Q8HR PRN #30 tab 04/27/17 Polyethylene Glycol 3350 [Miralax] 17 gm PO DAILY 04/27/17 Tramadol HCl 50 mg PO Q6HRS #20 tab 09/02/17 Clindamycin HCl [Clindamycin HCl] 300 mg PO QID 05/27/18 HYDROcodone 5MG/APAP 325MG [Britton 5/325] 1 tab PO Q4H PRN 05/27/18 Quetiapine Fumarate [Quetiapine Fumarate] 100 mg PO BEDTIME 05/27/18 Review of Systems - Review of Systems Constitutional: States: malaise EENTM: States: no symptoms reported Respiratory: States: no symptoms reported Cardiology: States: no symptoms reported Gastrointestinal/Abdominal: States: no symptoms reported Genitourinary: States: no symptoms reported Musculoskeletal: States: see HPI Skin: States: see HPI Neurological: States: anxiety Endocrine: States: no symptoms reported All other Systems: No Change from Baseline Past Medical History (General) - Patient Medical History Hx Seizures: No Hx Stroke: No Hx Dementia: No Hx Asthma: No Hx of COPD: No Hx Cardiac Disorders: No Hx Congestive Heart Failure: No Hx Pacemaker: No Hx Hypertension: Yes Hx Thyroid Disease: Yes Hx Diabetes: Yes Hx Gastroesophageal Reflux: No Hx Renal Disease: No Hx Cancer: No Hx of HIV: No Hx Hepatitis C: No Hx MRSA: Yes MRSA Source:: Wound Surgical History: no surgical history - Vaccination History Hx Tetanus, Diphtheria Vaccination: Yes Hx Influenza Vaccination: Yes - 2017 Hx Pneumococcal Vaccination: Yes - 2016 - Social History Hx Tobacco Use: Yes Hx Chewing Tobacco Use: No Hx Alcohol Use: No Hx Substance Use: No Hx Substance Use Treatment: No Hx Depression: No Hx Physical Abuse: No Hx Emotional Abuse: No Hx Suspected Abuse: No - Female History Hx Last Menstrual Period: 02/02/14 Patient : No Family Medical History - Family History Father Living Status: Still Living Hx Family Asthma: No Hx Family Congestive Heart Failure: No Hx Family Hypertension: Yes Hx Family Stroke: No Hx Cardiac Disease: No Hx Family Diabetes: Yes Hx Family Cancer: No Mother Family History: No Known Living Status: Still Living Hx Family Asthma: No Hx Family Congestive Heart Failure: No Hx Family Hypertension: No Hx Family Stroke: Yes Hx Cardiac Disease: No Hx Family Diabetes: Yes - dad Hx Family Cancer: No Hx Family;Other: Bipolar, Thyroid Physical Exam - Physical Exam General Appearance: Alert, Anxious Eye Exam: bilateral normal Ears, Nose, Throat: hearing grossly normal, normal ENT inspection, normal pharynx Neck: full range of motion, supple, normal inspection Respiratory: lungs clear, normal breath sounds, no respiratory distress, no accessory muscle use Cardiovascular/Chest: normal peripheral pulses, regular rate, rhythm, no edema Peripheral Pulses: radial,right: 2+, radial,left: 2+ Gastrointestinal/Abdominal: soft, other - obese Rectal Exam: deferred Back Exam: no CVA tenderness Extremity: normal range of motion, no pedal edema, normal capillary refill Neurologic: sap hana architect II-XII nml as tested, alert, normal mood/affect, oriented x 3 Skin Exam: other - erythema to the right lateral upper thigh with obvious palpable abscess underlying. Comments: Vital Signs - 8 hr 05/27/18 15:35 Temperature 98.4 F Pulse Rate [ 131 H Left Radial] Respiratory 20 Rate Blood Pressure 207/128 [Left Arm] O2 Sat by Pulse 99 Oximetry Progress - Progress Progress: 05/27/18 17:35 the patient is a 32-year-old female presenting with a right lateral upper thigh abscess that has matured over the last week causing severe pain and surrounding cellulitis. Incision and drainage was performed obtaining approximately 30 cc of pus. Wound culture was taken. The patient is to continue her clindamycin. She is to pack the wound daily with iodoform gauze. She is to wash the wound a couple of times a day with antibacterial soap and water. x-ray of the femur shows no evidence of any extension of infection to the femur. She needs to follow back up with her primary care doctor early next week. blood pressures were elevated here consistent with pain. These do need to be followed at home. ER warnings were given. 05/27/18 17:38 Departure - Departure Clinical Impression: Abscess of right thigh Disposition: Discharge to Home or Self Care Condition: Fair Departure Forms: ED Discharge - Pt. Copy, Patient Portal Self Enrollment Instructions: DI for Wound Infection Diet: diabetic diet Activity: increase activity as tolerated Referrals: Marino Roberto III, MD [Primary Care Provider] - 1-5 Days Home Medications: Ambulatory Orders Insulin Aspart [Novolog Flexpen] 10 unit SC TIDFD #0 02/04/14 Insulin Glargine [Lantus] 36 unit SC BID 02/04/14 Levothyroxine Sodium 100 mcg PO DAILY 05/04/15 Lisinopril 20 mg PO DAILY 04/14/16 Ibuprofen [Motrin] 200 - 400 mg PO Q8HR PRN #30 tab 04/27/17 Polyethylene Glycol 3350 [Miralax] 17 gm PO DAILY 04/27/17 Tramadol HCl 50 mg PO Q6HRS #20 tab 09/02/17 Clindamycin HCl [Clindamycin HCl] 300 mg PO QID 05/27/18 HYDROcodone 5MG/APAP 325MG [Britton 5/325] 1 tab PO Q4H PRN 05/27/18 Quetiapine Fumarate [Quetiapine Fumarate] 100 mg PO BEDTIME 05/27/18 Additional Instructions: the patient is a 32-year-old female presenting with a right lateral upper thigh abscess that has matured over the last week causing severe pain and surrounding cellulitis. Incision and drainage was performed obtaining approximately 30 cc of pus. Wound culture was taken. The patient is to continue her clindamycin. She is to pack the wound daily with iodoform gauze. She is to wash the wound a couple of times a day with antibacterial soap and water. x-ray of the femur shows no evidence of any extension of infection to the femur. She needs to follow back up with her primary care doctor early next week. ER warnings were given.
[2018-05-27 18:38] VITALS: BP 154/86; O2SAT 98
[2018-05-27 18:42] VITALS: TEMP 98
== END 2018-05-27 18:30 | disposition home or self-care (01) ==
LOC: ER 15:29
DX: L02.415 Cutaneous abscess of right lower limb (principal); I10 Essential (primary) hypertension; E07.9 Disorder of thyroid, unspecified; E11.9 Type 2 diabetes mellitus without complications; Z86.14 Personal history of Methicillin resistant Staphylococcus aureus infection; Z79.4 Long term (current) use of insulin; Z79.899 Other long term (current) drug therapy; Z87.891 Personal history of nicotine dependence; Z88.2 Allergy status to sulfonamides; Z88.1 Allergy status to other antibiotic agents

== ENCOUNTER → 2018-08-19 | Outpatient (CLI) | payer BC ==
--- NOTE | 2018-08-19 10:03 | US ---
EXAM DESCRIPTION: Gall Bladder CLINICAL HISTORY: ABDOMINAL PAIN COMPARISON: None Available. TECHNIQUE: Right upper quadrant ultrasound FINDINGS: Pancreas: Visualized portions of the pancreas are unremarkable. Bowel gas obscures some areas. Aorta/inferior vena cava: No aortic aneurysm. Normal inferior vena cava. Liver: Echogenic focus in the anterior right lobe of the liver 1.2 cm is consistent with benign cavernous hemangioma. The liver is otherwise homogeneous in texture with normal echogenicity of the hepatic parenchyma. No intrahepatic bile duct dilatation. No liver surface irregularity. Normal appearance of the portal vein and hepatic veins. Liver measures 20 cm in length which is elongate. This could be seen with hepatomegaly or Ethan's lobe. Gallbladder: Gallbladder appears normal with no intraluminal stones or wall thickening. Common bile duct: Normal caliber measuring 1.2 mm. Right kidney: Renal length is 10.9 cm. Normal cortical echogenicity. Cortical thickness is normal. No hydronephrosis is seen. No renal mass or shadowing calculus. IMPRESSION: Mild hepatomegaly with small hemangioma in the anterior right lobe of the liver. Otherwise unremarkable sonogram of the right upper abdomen. Electronically signed by: Juan Villela MD 08/19/2018 10:02 AM [facility]
== END ==
LOC: US 09:01
PROVIDERS: ATTEND Family Medicine
DX: R10.9 Unspecified abdominal pain (principal)

== ENCOUNTER → 2018-11-15 | Outpatient (CLI) | payer BC | LOC: GMAL 09:41 | PROVIDERS: ATTEND Physician Assistant | DX: M79.672 Pain in left foot (principal) ==

== ENCOUNTER → 2018-11-24 | Outpatient (CLI) | payer BC ==
--- NOTE | 2018-11-25 09:17 | MRI ---
EXAM DESCRIPTION: MRI left foot CLINICAL HISTORY: Left foot pain. Painful to walk. Diabetes COMPARISON: None. TECHNIQUE: Multiplanar, multisequence MR images of the left foot FINDINGS: Chronic middle and lateral bundle plantar fascial thickening. Moderate-sized plantar calcaneal spur. Large osseous erosion posterior to the calcaneal spur along the plantar calcaneus. High-grade partial tear of the middle and moderate grade partial tear of the lateral bundle origins. Edema throughout the plantar muscles of the hindfoot and extensive edema throughout the calcaneus. Diffuse subcutaneous soft tissue edema and swelling around the ankle and proximal dorsum of the foot No fracture of the bones of the foot. No advanced arthrosis or focal osteochondral lesion No tenosynovitis of the foot. Small posterior tibial tendon sheath effusion with insertional tendinosis. IMPRESSION: Severe plantar fasciitis with high-grade partial origin tear of the middle bundle and moderate grade of the lateral bundle. Focal erosion along the plantar calcaneus at the fascial attachment just posterior to the calcaneal spur. Extensive surrounding soft tissue edema and marrow edema in the calcaneus. Correlate for possibility of inflammatory etiology as opposed to mechanical etiology Electronically signed by: Scott Carlos MD 11/25/2018 9:15 AM CDT
== END ==
LOC: MRI 14:00
PROVIDERS: ATTEND Family Medicine
DX: M72.2 Plantar fascial fibromatosis (principal); M77.32 Calcaneal spur, left foot

== ENCOUNTER → 2019-03-01 | Outpatient (CLI) | payer BC | LOC: MAMMO 16:10 | PROVIDERS: ATTEND Family Medicine | DX: E03.4 Atrophy of thyroid (acquired) (principal); I10 Essential (primary) hypertension; E10.9 Type 1 diabetes mellitus without complications ==

== ENCOUNTER → 2019-03-14 | Outpatient (CLI) | payer OTHER ==
--- NOTE | 2019-03-14 20:17 | US ---
EXAM DESCRIPTION: Breast,Bilateral: Ultrasound CLINICAL HISTORY: 33 yearsFemaleLUMP LEFT BREAST . Skin ulcer upper left breast. Tender. No personal history of breast cancer. Remote family history of breast cancer. No childbirth. Premenopausal. No HRT Lifetime risk of developing breast cancer (Tyrer-Cuzick model)(%): Not calculated since patient below the minimum age 35 years. COMPARISON: None. TECHNIQUE: Transcutaneous scanning of the left breast utilizing black-scale and Doppler modes. Scanning performed by the media account executive and Dr. Medina. FINDINGS: Ultrasound: Scanning of the left breast at the 11:00 position 3 cm from the nipple. This is the location of the skin lesion. Heterogeneous mixture of fibroglandular tissues and fatty elements. No dominant solid mass. No distinct cyst. No parenchymal edema. No large calcifications. IMPRESSION: BI-RADS CATEGORY: 1 - NEGATIVE FOLLOW UP: No suspicious or significant clinical findings. The region of interest should be followed on clinical grounds, and if noted to change in size or character, a targeted/directed follow-up on US examination may be performed. Written communication explaining the IMPRESSION and follow-up, will be mailed to the patient and referring health care provider. The FINDINGS and the FOLLOW-UP plan were reviewed in person with the patient after the examination. According to the [employer], yearly mammograms are recommended starting at age 40 and continuing as long as a woman is in good health. Any breast change noted on a breast self-exam should be reported promptly to the patient's healthcare provider. Breast MRI is recommended for women with an approximately 20-25% or greater lifetime risk of breast cancer, including women with a strong family history of breast or ovarian cancer and women who have been treated for Hodgkin's disease. Electronically signed by: Oj Medina MD 03/14/2019 8:15 PM CDT
== END ==
LOC: MAMMO 08:42
PROVIDERS: ATTEND Family Medicine
DX: N63.20 Unspecified lump in the left breast, unspecified quadrant (principal)

== ENCOUNTER → 2019-06-17 | Outpatient (CLI) | payer BC ==
--- NOTE | 2019-06-19 11:35 | MRI ---
EXAM DESCRIPTION: Brain w/wo Contrast: Magnetic Resonance Imaging. CLINICAL HISTORY: 33 years Female SEIZURES COMPARISON: None. TECHNIQUE: Multiplanar, high-field MRI, multiple conventional sequences, without and with gadolinium IV contrast. No adverse reactions. Multiple axial diffusion sequences. FINDINGS: Normal FLAIR and T2-weighted signal in the periventricular white matter and black-white matter junctions of the cerebral hemispheres. . Normal signal in the bilateral basal ganglia. No hemorrhage, no cerebral edema, no mass-effect. Normal contrast enhancement. Normal signal in the brainstem and cerebellar hemispheres. No hemorrhage, no cerebral edema, no mass-effect. Normal contrast enhancement. Concordance of the diffusion and non-diffusion sequences with no evidence of acute or subacute infarction. Cortical sulci, ventricles, and other CSF spaces, and the subdural spaces are normally configured for patients age. No effacement or displacement. No midline shift. No extra-axial hemorrhage. Normal contrast enhancement. Normal flow signal void in the major vessels of the wiyot Barrera, and the venous sinuses. IACs are symmetric bilaterally. Normal signal in the bilateral mastoid air cells. No mass effect in the bilateral Cerebellopontine angles. Normal contrast enhancement. Pituitary gland occupies all of the sella. Normal contrast enhancement. Base of the cerebellar tonsils is above the foramen magnum. No periosteal thickening diffusely in the paranasal sinuses. The bony calvarium is intact. IMPRESSION: 1. Normal MRI scan of the brain without and with gadolinium IV contrast. No intra-axial extra-axial hemorrhage, no cerebral edema, no mass effect, no extra-axial fluid. Particular, bilateral temporal lobes show negative findings. 2. Normal noncontrast MRI diffusion study with no evidence of acute or subacute significant ischemia or infarction. 3. Paranasal chronic sinusitis. Electronically signed by: Oj Medina MD 06/19/2019 11:34 AM [facility]
== END | disposition home or self-care (01) ==
LOC: MRI 12:46
PROVIDERS: ATTEND Family Medicine
DX: G40.89 Other seizures (principal); I10 Essential (primary) hypertension

== ENCOUNTER 2019-08-08 14:24 | Emergency (ER) | payer SELFPAY ==
[2019-08-08] MEDS ORDERED: ASPIRIN TABLET 325 MG TAB PO ONE (14:38)
[2019-08-08] MEDS ORDERED: SODIUM CHLORIDE 0.9% (FLUSH) 10 ML SYG IV PRN (14:38)
[2019-08-08] MEDS ORDERED: ONDANSETRON INJ 4 MG/2 ML VIAL IV ONE (14:38)
[2019-08-08] MEDS ORDERED: SODIUM CHLORIDE 0.9% 1000ML 1,000 ML IVS ONE (14:39)
--- NOTE | 2019-08-08 14:53 | ED.PDOC ---
History of Present Illness - General Stated Complaint: Palpitations, chest discomfort Time Seen by Provider: 08/08/19 14:38 Source: patient Exam Limitations: no limitations - History of Present Illness Initial Comments: 33-year-old female presents to the emergency department complaining of one week of intermittent chest pain, palpitations, shortness of breath and tingling in her fingers. The history of hypertension and has been taking her blood pressure medication but her blood pressure still been significantly elevated. She went to her primary care doctors office prior to arrival in the sent her to the ED for further evaluation. She currently describes her pain as a pressure and it comes and goes, nothing she does seems to make it come on or go away. She also reports intermittent tingling and numbness in her fingers which switch from hand to hand. She denies any cough, congestion or fever. She denies any vomiting or diarrhea. She is a diabetic and also has a hx of anxiety/bipolar d/o and has been taking all of her medications as directed. She denies any personal or family history of PE/DVT, no recent surgery or immobilization and is not currently on any oral contraceptive pills. Symptoms are currently rated as 5/10 in severity. Allergies/Adverse Reactions: Allergies Cephalexin [From Keflex] Allergy (Verified 05/27/18 16:09) Rash Sulfamethoxazole w/Trimethoprim [From Bactrim] Allergy (Verified 05/27/18 16:09) Rash Home Medications: Ambulatory Orders Insulin Aspart [Novolog Flexpen] 10 unit SC TIDFD #0 02/04/14 Insulin Glargine [Lantus] 36 unit SC BID 02/04/14 Levothyroxine Sodium 100 mcg PO DAILY 05/04/15 Lisinopril 20 mg PO DAILY 04/14/16 Ibuprofen [Motrin] 200 - 400 mg PO Q8HR PRN #30 tab 04/27/17 Polyethylene Glycol 3350 [Miralax] 17 gm PO DAILY 04/27/17 Tramadol HCl 50 mg PO Q6HRS #20 tab 09/02/17 Clindamycin HCl 300 mg PO QID 05/27/18 HYDROcodone 5MG/APAP 325MG [[place] 5/325] 1 tab PO Q4H PRN 05/27/18 Quetiapine Fumarate 100 mg PO BEDTIME 05/27/18 Review of Systems - Review of Systems Constitutional: Denies: chills, fever EENTM: Denies: nose congestion, throat pain Respiratory: States: short of breath. Denies: cough Cardiology: States: chest pain, palpitations Gastrointestinal/Abdominal: Denies: abdominal pain, diarrhea, vomiting Genitourinary: Denies: dysuria, hematuria Musculoskeletal: Denies: joint pain, muscle pain Skin: Denies: lesions, rash Neurological: States: numbness - fingertips. Denies: headache, weakness Past Medical History (General) - Patient Medical History Hx Seizures: No Hx Stroke: No Hx Dementia: No Hx Asthma: No Hx of COPD: No Hx Cardiac Disorders: No Hx Congestive Heart Failure: No Hx Pacemaker: No Hx Hypertension: Yes Hx Thyroid Disease: Yes Hx Diabetes: Yes Hx Gastroesophageal Reflux: No Hx Renal Disease: No Hx Cancer: No Hx of HIV: No Hx Hepatitis C: No Hx MRSA: Yes MRSA Source:: Wound - Vaccination History Hx Tetanus, Diphtheria Vaccination: Yes Hx Influenza Vaccination: No Hx Pneumococcal Vaccination: Yes - 2017 - Social History Hx Tobacco Use: Yes Hx Chewing Tobacco Use: No Hx Alcohol Use: No Hx Substance Use: No Hx Substance Use Treatment: No Hx Depression: No Hx Physical Abuse: No Hx Emotional Abuse: No Hx Suspected Abuse: No - Female History Patient is a Female of Child Bearing Age (10 -59 yrs old): Yes Hx Last Menstrual Period: 02/02/14 Patient : No Family Medical History - Family History Father Living Status: Still Living Hx Family Asthma: No Hx Family Congestive Heart Failure: No Hx Family Hypertension: Yes Hx Family Stroke: No Hx Cardiac Disease: No Hx Family Diabetes: Yes Hx Family Cancer: No Mother Family History: No Known Living Status: Still Living Hx Family Asthma: No Hx Family Congestive Heart Failure: No Hx Family Hypertension: No Hx Family Stroke: Yes Hx Cardiac Disease: No Hx Family Diabetes: Yes - dad Hx Family Cancer: No Hx Family;Other: Bipolar, Thyroid Physical Exam - Physical Exam General Appearance: Alert, Well Developed, Well Nourished Eyes, Ears, Nose, Throat Exam: normal ENT inspection, pharynx normal Neck: full range of motion, normal inspection Respiratory: lungs clear, normal breath sounds, other - tachypneic Cardiovascular/Chest: normal peripheral pulses, no edema, tachycardia Peripheral Pulses: radial,right: 2+, radial,left: 2+, dorsalis pedis,right: 2+, dorsalis pedis,left: 2+ Gastrointestinal/Abdominal: normal bowel sounds, non tender, soft Neurologic: no motor/sensory deficits, alert, normal mood/affect, oriented x 3 Skin Exam: normal color, warm/dry Comments: Vital Signs - 24 hr 08/08/19 14:41 Temperature 96.8 F L Pulse Rate [ 125 H Apical] Respiratory 20 Rate Blood Pressure 231/121 [Left Arm] O2 Sat by Pulse 98 Oximetry Progress - Progress Progress: 08/08/19 15:30 Patient recheck: Heart rate has decreased somewhat down to around 110 and blood pressure is 185 systolic after Ativan. All lab and imaging results so far were discussed with the patient. We are still currently waiting on thyroid function testing results. With her the elevated heart rate and blood pressure which she said is actually been an ongoing problem for several years. She has been taking lisinopril but to her knowledge has never been on a beta maximiliano for her blood pressure. We discussed trial of Lopressor IV while in the emergency department to see if this helps her heart rate and blood pressure and will discuss this with her primary care physician as all the rest of the lab and imaging results come back. Her HEART Score is 2 making her low risk for MACE. She has voiced understanding and agrees with the treatment plan. 08/08/19 15:[address] Roberto, the patient's primary care physician, regarding her lab and imaging results today. We discussed the patient's antihypertensive medications and he states in his records the patient is taking carvedilol as well however she believes she is only taking lisinopril. At this point he does not recommend any medication changes and he will follow-up with the patient in the office to further adjust medications. 08/08/19 15:57 Patient updated on the conversation with her primary care physician. She was encouraged to call the office and schedule follow-up appointment as soon as possible. At this time she is encouraged to take all medications as directed and to return to the emergency department for any worsening of symptoms or other concerns. I will give her the information for Dr. Diop one of the betting agency manager to follow-up as well. She is encouraged to return to the emergency department for any worsening of symptoms or other concerns. The patient and significant other at the bedside who voice understanding and agree with the treatment plan. - Results/Orders Results/Orders: 08/08/19 14:38 IV Care:Saline Lock per Protoc QSHIFT Telemetry .ONCE Sodium Chloride 0.9% (Flush) [Saline Flush Syringe] 10 ml IV PRN PRN EKG Stat Pulse Ox Stat 08/08/19 14:50 UA [URINALYSIS] Stat Laboratory Results - last 24 hr 08/08/19 08/08/19 08/08/19 14:46 14:46 14:46 WBC 11.1 H RBC 4.05 L Hgb 12.6 Hct 36.8 MCV 90.9 MCH 31.0 MCHC 34.1 RDW 12.4 Plt Count 417 H MPV 7.7 Absolute Neuts (auto) 7.10 H Absolute Lymphs (auto) 2.90 Absolute Monos (auto) 0.60 Absolute Eos (auto) 0.40 Absolute Basos (auto) 0.20 H Neutrophils % 64.0 Lymphocytes % 25.8 Monocytes % 5.2 Eosinophils % 3.5 Basophils % 1.5 PT 9.4 INR 0.95 PTT (SP) 26.3 D-Dimer, Quantitative 0.24 Sodium 136 Potassium 3.7 Chloride 99 L Carbon Dioxide 22 Anion Gap 18.7 H BUN 30 H Creatinine 1.12 BUN/Creatinine Ratio 26.8 H Random Glucose 171 H Serum Osmolality 282.2 Calcium 9.9 Magnesium 1.9 Creatine Kinase 29 CK-MB (CK-2) 1.2 CK-MB (CK-2) % Not Reportable Troponin I < 0.02 B-Natriuretic Peptide 19.3 TSH Free T4 Serum HCG, Qual Negative 08/08/19 14:46 WBC RBC Hgb Hct MCV MCH MCHC RDW Plt Count MPV Absolute Neuts (auto) Absolute Lymphs (auto) Absolute Monos (auto) Absolute Eos (auto) Absolute Basos (auto) Neutrophils % Lymphocytes % Monocytes % Eosinophils % Basophils % PT INR PTT (SP) D-Dimer, Quantitative Sodium Potassium Chloride Carbon Dioxide Anion Gap BUN Creatinine BUN/Creatinine Ratio Random Glucose Serum Osmolality Calcium Magnesium Creatine Kinase CK-MB (CK-2) CK-MB (CK-2) % Troponin I B-Natriuretic Peptide TSH 5.99 H Free T4 0.50 L Serum HCG, Qual EKG interpreted by myself at 1429. Sinus tachycardia rate 132. Normal axis. Normal intervals. No ST elevation and nonspecific ST-T changes. 2 View CXR: IMPRESSION: Clear lungs. Electronically signed by: Juan Villela MD 08/08/2019 3:09 PM [employer] SEC[employer] Departure - Departure Clinical Impression: Tachycardia Chest pain Qualifiers: Chest pain type: unspecified Qualified Code(s): R07.9 - Chest pain, unspecified HTN (hypertension) Qualifiers: Hypertension type: unspecified Qualified Code(s): I10 - Essential (primary) hypertension Time of Disposition: 16:00 Disposition: Discharge to Home or Self Care Condition: Good Instructions: DI for Chest Pain, Tachycardia, High Blood Pressure in Adults Referrals: Marino Roberto III, MD [Primary Care Provider] - 1-2 Days CARLIN DIOP MD [Consulting Staff] - 1 Week Home Medications: Ambulatory Orders Insulin Aspart [Novolog Flexpen] 10 unit SC TIDFD #0 02/04/14 Insulin Glargine [Lantus] 36 unit SC BID 02/04/14 Levothyroxine Sodium 100 mcg PO DAILY 05/04/15 Lisinopril 20 mg PO DAILY 04/14/16 Ibuprofen [Motrin] 200 - 400 mg PO Q8HR PRN #30 tab 04/27/17 Polyethylene Glycol 3350 [Miralax] 17 gm PO DAILY 04/27/17 Tramadol HCl 50 mg PO Q6HRS #20 tab 09/02/17 Clindamycin HCl 300 mg PO QID 05/27/18 HYDROcodone 5MG/APAP 325MG [[place] 5/325] 1 tab PO Q4H PRN 05/27/18 Quetiapine Fumarate 100 mg PO BEDTIME 05/27/18 Additional Instructions: Take medications as directed. Call Dr. Roberto's office to schedule a follow-up appointment as soon as possible. Call Dr. Diop office to schedule a follow-up appointment as well. Return to the emergency department for any significant worsening symptoms or other concerns.
--- NOTE | 2019-08-08 15:11 | RAD ---
EXAM DESCRIPTION: Chest,2 Views CLINICAL HISTORY: CP COMPARISON: Previous study April 25, 2017 TECHNIQUE: PA/lateral FINDINGS: Since the previous study, infiltrative changes in left lung base have cleared. Nodular area in the left lower lobe costophrenic angle region is no longer seen and there is no evidence of a cavitary lesion on today's study. Heart size is normal with normal pulmonary vascularity. Right hemidiaphragm is mildly elevated. No pleural effusion or pneumothorax. Lungs are clear with no consolidating infiltrate. Lateral view shows intact sternum and T-spine. IMPRESSION: Clear lungs. Electronically signed by: Juan Villela MD 08/08/2019 3:09 PM [employer]
[2019-08-08] MEDS ORDERED: METOPROLOL TARTRATE INJ 5 MG/5 ML VIAL IV ONE (15:29)
[2019-08-08 16:47] VITALS: BP 189/119; TEMP 97.4; O2SAT 98
== END 2019-08-08 16:46 | disposition home or self-care (01) ==
LOC: ER 14:24
DX: R00.0 Tachycardia, unspecified (principal); R07.9 Chest pain, unspecified; I10 Essential (primary) hypertension; R06.02 Shortness of breath; R20.2 Paresthesia of skin; E11.9 Type 2 diabetes mellitus without complications; E07.9 Disorder of thyroid, unspecified; F41.9 Anxiety disorder, unspecified; F31.9 Bipolar disorder, unspecified; Z87.891 Personal history of nicotine dependence; Z79.4 Long term (current) use of insulin; Z79.899 Other long term (current) drug therapy; Z88.1 Allergy status to other antibiotic agents; Z88.2 Allergy status to sulfonamides
CPT/HCPCS: 71046; 80048; 82550; 82553; 83880; 84439; 84443; 84484; 84703; 85025; 85379; 85610; 85730; 93005; 94760; J2060; J2405; J7030

== ENCOUNTER → 2019-08-16 | Outpatient (CLI) | payer BC | LOC: GMAL 17:04 | PROVIDERS: ATTEND Family Medicine | DX: G47.62 Sleep related leg cramps (principal); I10 Essential (primary) hypertension ==

== ENCOUNTER 2019-12-12 13:27 | Emergency (ER) | payer BC ==
[2019-12-12] MEDS ORDERED: SODIUM CHLORIDE 0.9% 1000ML 2,000 ML IVS ONE (13:55)
[2019-12-12] MEDS ORDERED: MEROPENEM 1 GM in SODIUM CHL 0.9% 50ML MIN-BAG+ 50 ML IVPB ONE (14:49)
--- NOTE | 2019-12-12 14:49 | RAD ---
EXAM DESCRIPTION: Chest,1 View CLINICAL HISTORY: Fall, possible DKA COMPARISON: August 08, 2019 IMPRESSION: Single AP portable upright view of the chest shows cardiac silhouette and pulmonary vasculature to be within normal limits. Lungs are normally aerated and clear. No obvious pleural effusion or pneumothorax is seen. Electronically signed by: Jeronimo Hough MD 12/12/2019 2:47 PM CDT
--- NOTE | 2019-12-12 14:51 | CT ---
EXAM DESCRIPTION: Head CLINICAL HISTORY: fall headache COMPARISON: None TECHNIQUE: Noncontrast transaxial CT images of the head are obtained from base to vertex. This exam was performed according to our departmental dose-optimization program, which includes automated exposure control, adjustment of the mA and/or kV according to patient size and/or use of iterative reconstruction technique. FINDINGS: The midline structures are not displaced. The sulci are age appropriate. The lateral, third, and fourth ventricles are normal in size, shape, and anatomic positioning. There is no evidence of mass, mass effect, hydrocephalus, or acute intracranial hemorrhage. No abnormal extra axial fluid collections are seen. Normal black-white differentiation is seen. Calcifications of the intracranial carotid arteries are seen. The visualized bone windows show no depressed skull fracture or significant abnormality. The visualized paranasal sinuses and mastoid air cells are clear. IMPRESSION: 1. No acute abnormality is seen on noncontrast CT of the head. Electronically signed by: Jeronimo Hough MD 12/12/2019 2:49 PM CDT
[2019-12-12] MEDS ORDERED: MEROPENEM 1 GM VIAL IVPB ONE (14:55)
[2019-12-12] MEDS ORDERED: SODIUM CHL 0.9% 50ML MIN-BAG+ 50 ML IVPB ONE (14:55)
[2019-12-12] MEDS ORDERED: ACETAMINOPHEN IV 1000MG 1,000 MG in PREMIX BOTTLE 1 BOTTLE IVPB ONE (15:07)
[2019-12-12] MEDS ORDERED: INSULIN, REG.(HUMAN) 100 U/ML VIAL IV ONE ×2 (15:07→16:43)
[2019-12-12] MEDS ORDERED: fentaNYL CITRATE INJ 50 MCG/ML 2 ML AMP IV ONE ×2 (15:08→19:18)
--- NOTE | 2019-12-12 15:15 | ED.PDOC ---
History of Present Illness - General Chief Complaint: Diabetic Complaint Stated Complaint: "passed out and fell to floor" Time Seen by Provider: 12/12/19 13:35 Source: patient, RN notes reviewed, Vital Signs reviewed, family Exam Limitations: no limitations - History of Present Illness Initial Comments: This is a 34-year-old female with history of type 1 diabetes presenting to the emergency department after a syncopal episode with fall, states she hit her head on the ground was unconscious for an unknown amount of time. She reports a severe headache at this time.She states she is felt "exhausted and washed out" all day today. She states she was tired yesterday. She checked her blood sugar at home and got readings "high". She does have a remote history of DKA many ye ars ago, no recent episodes of DKA. She denies any recent illnesses, cough, vomiting, fever, shortness of breath, or any other infectious symptoms. She denies any dysuria or hematuria. No recent travel or sick contacts. She states she has been taking her insulin as prescribed. She does report some polyuria over the last 24 to 48 hours as well. Allergies/Adverse Reactions: Allergies Cephalexin [From Keflex] Allergy (Verified 12/12/19 13:52) Rash Sulfamethoxazole w/Trimethoprim [From Bactrim] Allergy (Verified 12/12/19 13:52) Rash Home Medications: Ambulatory Orders RX: Insulin Aspart [Novolog Flexpen] 10 unit SC TIDFD #0 02/04/14 RX: Insulin Glargine [Lantus] 36 unit SC BID 02/04/14 RX: Levothyroxine Sodium 100 mcg PO DAILY 05/04/15 RX: Lisinopril 20 mg PO DAILY 04/14/16 Ibuprofen [Motrin] 200 - 400 mg PO Q8HR PRN #30 tab 04/27/17 RX: Polyethylene Glycol 3350 [Miralax] 17 gm PO DAILY 04/27/17 RX: Tramadol HCl 50 mg PO Q6HRS #20 tab 09/02/17 Clindamycin HCl 300 mg PO QID 05/27/18 HYDROcodone 5MG/APAP 325MG [[place] 5/325] 1 tab PO Q4H PRN 05/27/18 Quetiapine Fumarate 100 mg PO BEDTIME 05/27/18 Ibuprofen [Motrin] 600 mg PO Q6H PRN #20 tab 12/12/19 Ondansetron HCl [Zofran] 4 mg PO Q6H PRN #12 tab 12/12/19 Review of Systems - Review of Systems Constitutional: Denies: chills, fever EENTM: Denies: ear pain, nose pain, throat pain, mouth pain Respiratory: Denies: cough, orthopnea, short of breath, wheezing Cardiology: States: syncope. Denies: chest pain, edema Gastrointestinal/Abdominal: Denies: abdominal pain, diarrhea, nausea, vomiting Genitourinary: States: frequency. Denies: dysuria, hematuria, pain Musculoskeletal: Denies: gout, joint pain, joint swelling, muscle pain, muscle stiffness, neck pain Neurological: States: headache. Denies: numbness, paresthesia Endocrine: States: increased thirst, increased urine. Denies: excessive sweating, flushing, increased hunger Hematologic/Lymphatic: States: no symptoms reported Past Medical History (General) - Patient Medical History Hx Seizures: No Hx Stroke: No Hx Dementia: No Hx Asthma: No Hx of COPD: No Hx Cardiac Disorders: No Hx Congestive Heart Failure: No Hx Pacemaker: No Hx Hypertension: Yes Hx Thyroid Disease: Yes Hx Diabetes: Yes Hx Gastroesophageal Reflux: No Hx Renal Disease: No Hx Cancer: No Hx of HIV: No Hx Hepatitis C: No Hx MRSA: Yes MRSA Source:: Wound Surgical History: no surgical history - Vaccination History Hx Tetanus, Diphtheria Vaccination: Yes Hx Influenza Vaccination: No Hx Pneumococcal Vaccination: Yes - 2017 - Social History Hx Tobacco Use: Yes Hx Chewing Tobacco Use: No Hx Alcohol Use: No Hx Substance Use: No Hx Substance Use Treatment: No Hx Depression: No Hx Physical Abuse: No Hx Emotional Abuse: No Hx Suspected Abuse: No - Activities of Daily Living Hospice Agency (if applicable):: None - Female History Patient is a Female of Child Bearing Age (10 -59 yrs old): Yes Hx Last Menstrual Period: 02/02/14 Patient : No - Triage Comment ED Triage Comment: pt voices she took her insulin this morning and all she remembers is waking up on the floor. pt took Lantus 36units last night at bedtime and 36units this AM, as well as 10units of Novolog this morning and remembers nothing after this. pt appears pale and diaphoretic, lethargic. she transferred from to bed with minimal difficulty, generalized weakness. pt voices nausea this morning. Family Medical History - Family History Father Living Status: Still Living Hx Family Asthma: No Hx Family Congestive Heart Failure: No Hx Family Hypertension: Yes Hx Family Stroke: No Hx Cardiac Disease: No Hx Family Diabetes: Yes Hx Family Cancer: No Mother Family History: No Known Living Status: Still Living Hx Family Asthma: No Hx Family Congestive Heart Failure: No Hx Family Hypertension: No Hx Family Stroke: Yes Hx Cardiac Disease: No Hx Family Diabetes: Yes - dad Hx Family Cancer: No Hx Family;Other: Bipolar, Thyroid Physical Exam - Physical Exam General Appearance: Alert, Obese - Appears uncomfortable, Other Eye Exam: bilateral normal Ears, Nose, Throat: hearing grossly normal, normal ENT inspection Neck: non-tender, full range of motion, supple Respiratory: lungs clear, normal breath sounds, no respiratory distress, no accessory muscle use Cardiovascular/Chest: normal peripheral pulses, regular rate, rhythm, no edema, no gallop, no JVD, no murmur Peripheral Pulses: radial,right: 2+, radial,left: 2+, dorsalis pedis,right: 2+, dorsalis pedis,left: 2+ Gastrointestinal/Abdominal: non tender, soft, no organomegaly Back Exam: normal inspection, no CVA tenderness, no vertebral tenderness Extremity: normal range of motion, normal inspection 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 Discussed lab findings, discussed labs inconsistent with DKA at this time. Patient has had 1 L of normal saline in at this time, will bolus 2 more liters as well as give IV insulin and recheck blood sugar in 1 hour. Will recheck BMP after fluids completed to ensure closure of gap. If improving, I do not see any reason why the patient cannot be discharged home. 12/12/19 16:58 Rechecked.Gap closing, 19.4, glucose still elevated at 548 after insulin and fluids. Will give additional liter bolus and additional insulin and recheck BMP. 12/12/19 20:12 Rechecked. Headache had returned, fentanyl was given, headache is now improved. Heart rate in the low 100s. Awaiting repeat chemistry. 12/12/19 20:43 Rechecked. Glucose down to 150, gap closed, no indication for admission at this time. Will discharge home. Recommended follow-up PCP in 2 to 3 days for recheck. Recommended close monitoring of blood sugars and taking insulin as prescribed. Strict warnings given to return the emergency room for fever, intractable vomiting, worsening headache, changes in mental status, or any other concerns 12/13/19 02:12 MDM: DDX: DKA, uncontrolled diabetes, dehydration History of IDDM presenting with nausea vomiting and a reported syncopal episode. She was hyperglycemic on arrival, positive ketones and elevated anion gap, but normal pH. This is not consistent with DKA. She was given several liters of normal saline and 2 doses of IV insulin and blood sugar improved from 800s to the mid 100s, gap closed, sodium normalized. Headache resolved. No indication for admission at this time. Recommended follow-up with PCP in 2 to 3 days for recheck. Strict warnings given to return the emergency room for intractable vomiting, fever, chest pain, shortness of breath, or any other concerns. Soham Funes DO [facility] #[id number] - Results/Orders Results/Orders: EKG interpreted by dc at 1344. EKG shows sinus tach at 127, normal axis, normal intervals, poor R wave progression, no ST segment elevations or depressions. EXAM DESCRIPTION: Chest,1 View CLINICAL HISTORY: Fall, possible DKA COMPARISON: August 08, 2019 IMPRESSION: Single AP portable upright view of the chest shows cardiac silhouette and pulmonary vasculature to be within normal limits. Lungs are normally aerated and clear. No obvious pleural effusion or pneumothorax is seen. Electronically signed by: Jeronimo Hough MD 12/12/2019 2:47 PM CDT EXAM DESCRIPTION: Head CLINICAL HISTORY: fall headache COMPARISON: None TECHNIQUE: Noncontrast transaxial CT images of the head are obtained from base to vertex. This exam was performed according to our departmental dose- optimization program, which includes automated exposure control, adjustment of the mA and/or kV according to patient size and/or use of iterative reconstruction technique. FINDINGS: The midline structures are not displaced. The sulci are age appropriate. The lateral, third, and fourth ventricles are normal in size, shape, and anatomic positioning. There is no evidence of mass, mass effect, hydrocephalus, or acute intracranial hemorrhage. No abnormal extra axial fluid collections are seen. Normal black-white differentiation is seen. Calcifications of the intracranial carotid arteries are seen. The visualized bone windows show no depressed skull fracture or significant abnormality. The visualized paranasal sinuses and mastoid air cells are clear. IMPRESSION: 1. No acute abnormality is seen on noncontrast CT of the head. Electronically signed by: Jeronimo Hough MD 12/12/2019 2:49 PM CDT VBG drawn at 3:04 PM: pH 7.38, PCO2 26.8, PaO2 48.3; Normal pH, not consistent with DKA 12/12/19 13:42 IV Care:Saline Lock per Protoc QSHIFT 12/12/19 13:45 EKG STAT 12/12/19 14:23 BLOOD CULTURE Stat Laboratory Results - last 24 hr 12/12/19 12/12/19 12/12/19 13:34 14:00 14:00 WBC 13.7 H RBC 3.94 L Hgb 12.2 Hct 36.7 MCV 93.2 MCH 30.9 MCHC 33.2 RDW 12.7 Plt Count 402 H MPV 7.9 Absolute Neuts (auto) 11.30 H Absolute Lymphs (auto) 1.80 Absolute Monos (auto) 0.40 Absolute Eos (auto) 0.10 Absolute Basos (auto) 0.10 Neutrophils % 82.6 H Lymphocytes % 12.9 L Monocytes % 3.2 Eosinophils % 0.8 L Basophils % 0.5 pCO2 pO2 HCO3 ABG pH ABG O2 Saturation ABG Base Excess ABG Deoxyhemoglobin Oxyhemoglobin % Carboxyhemoglobin % Methemoglobin % Sat Calc Total Hemoglobin Sodium 124 L Potassium 4.8 Chloride 91 L Carbon Dioxide 14 L* Anion Gap 23.8 H BUN 30 H Creatinine 1.29 BUN/Creatinine Ratio 23.3 H POC Glucose > 400 H* Random Glucose 803 H* Serum Osmolality 295.0 Lactic Acid Calcium 8.9 Phosphorus Magnesium Total Bilirubin Direct Bilirubin Indirect Bilirubin AST ALT Alkaline Phosphatase Serum Total Protein Albumin Serum HCG, Qual Urine Color Urine Appearance Urine pH Ur Specific [place] Urine Protein Urine Glucose (UA) Urine Ketones Urine Blood Urine Nitrite Urine Bilirubin Urine Urobilinogen Ur Leukocyte Esterase Urine RBC Urine WBC Ur Epithelial Cells Amorphous Sediment Urine Bacteria Serum Ketones 12/12/19 12/12/19 12/12/19 14:00 14:00 14:00 WBC RBC Hgb Hct MCV MCH MCHC RDW Plt Count MPV Absolute Neuts (auto) Absolute Lymphs (auto) Absolute Monos (auto) Absolute Eos (auto) Absolute Basos (auto) Neutrophils % Lymphocytes % Monocytes % Eosinophils % Basophils % pCO2 pO2 HCO3 ABG pH ABG O2 Saturation ABG Base Excess ABG Deoxyhemoglobin Oxyhemoglobin % Carboxyhemoglobin % Methemoglobin % Sat Calc Total Hemoglobin Sodium Potassium Chloride Carbon Dioxide Anion Gap BUN Creatinine BUN/Creatinine Ratio POC Glucose Random Glucose Serum Osmolality Lactic Acid 2.5 H* Calcium Phosphorus Magnesium Total Bilirubin 1.8 H Direct Bilirubin < 0.1 Indirect Bilirubin 1.7 H AST 23 ALT 25 Alkaline Phosphatase 151 H Serum Total Protein 7.3 Albumin 2.8 L Serum HCG, Qual Negative Urine Color Urine Appearance Urine pH Ur Specific [place] Urine Protein Urine Glucose (UA) Urine Ketones Urine Blood Urine Nitrite Urine Bilirubin Urine Urobilinogen Ur Leukocyte Esterase Urine RBC Urine WBC Ur Epithelial Cells Amorphous Sediment Urine Bacteria Serum Ketones Large 12/12/19 12/12/19 12/12/19 14:00 14:10 14:12 WBC RBC Hgb Hct MCV MCH MCHC RDW Plt Count MPV Absolute Neuts (auto) Absolute Lymphs (auto) Absolute Monos (auto) Absolute Eos (auto) Absolute Basos (auto) Neutrophils % Lymphocytes % Monocytes % Eosinophils % Basophils % pCO2 pO2 HCO3 ABG pH ABG O2 Saturation ABG Base Excess ABG Deoxyhemoglobin Oxyhemoglobin % Carboxyhemoglobin % Methemoglobin % Sat Calc Total Hemoglobin Sodium Potassium Chloride Carbon Dioxide Anion Gap BUN Creatinine BUN/Creatinine Ratio POC Glucose Random Glucose Cancelled Serum Osmolality Lactic Acid Calcium Phosphorus 3.9 Magnesium 2.0 Total Bilirubin Direct Bilirubin Indirect Bilirubin AST ALT Alkaline Phosphatase Serum Total Protein Albumin Serum HCG, Qual Urine Color Yellow Urine Appearance Clear Urine pH 5.5 Ur Specific [place] 1.010 Urine Protein 100 H Urine Glucose (UA) Negative Urine Ketones 80 H Urine Blood Small H Urine Nitrite Negative Urine Bilirubin Negative Urine Urobilinogen 0.2 Ur Leukocyte Esterase Negative Urine RBC 1-3 Urine WBC 0-1 Ur Epithelial Cells 1-3 Amorphous Sediment 1+ Urine Bacteria 0 Serum Ketones 12/12/19 12/12/19 12/12/19 14:41 16:16 16:19 WBC RBC Hgb Hct MCV MCH MCHC RDW Plt Count MPV Absolute Neuts (auto) Absolute Lymphs (auto) Absolute Monos (auto) Absolute Eos (auto) Absolute Basos (auto) Neutrophils % Lymphocytes % Monocytes % Eosinophils % Basophils % pCO2 27 L pO2 48 L* HCO3 15.9 ABG pH 7.382 ABG O2 Saturation 86.5 L ABG Base Excess -7.7 ABG Deoxyhemoglobin 13.2 H Oxyhemoglobin % 84.3 L Carboxyhemoglobin % 1.2 Methemoglobin % Sat 1.3 Calc Total Hemoglobin 12.5 Sodium Potassium Chloride Carbon Dioxide Anion Gap BUN Creatinine BUN/Creatinine Ratio POC Glucose > 400 H* Random Glucose Cancelled Serum Osmolality Lactic Acid Calcium Phosphorus Magnesium Total Bilirubin Direct Bilirubin Indirect Bilirubin AST ALT Alkaline Phosphatase Serum Total Protein Albumin Serum HCG, Qual Urine Color Urine Appearance Urine pH Ur Specific [place] Urine Protein Urine Glucose (UA) Urine Ketones Urine Blood Urine Nitrite Urine Bilirubin Urine Urobilinogen Ur Leukocyte Esterase Urine RBC Urine WBC Ur Epithelial Cells Amorphous Sediment Urine Bacteria Serum Ketones 12/12/19 12/12/19 16:43 20:17 WBC RBC Hgb Hct MCV MCH MCHC RDW Plt Count MPV Absolute Neuts (auto) Absolute Lymphs (auto) Absolute Monos (auto) Absolute Eos (auto) Absolute Basos (auto) Neutrophils % Lymphocytes % Monocytes % Eosinophils % Basophils % pCO2 pO2 HCO3 ABG pH ABG O2 Saturation ABG Base Excess ABG Deoxyhemoglobin Oxyhemoglobin % Carboxyhemoglobin % Methemoglobin % Sat Calc Total Hemoglobin Sodium 129 L 135 Potassium 4.4 3.6 Chloride 98 L 105 Carbon Dioxide 16 L 20 L Anion Gap 19.4 H 13.6 BUN 26 H 23 H Creatinine 1.14 0.89 BUN/Creatinine Ratio 22.8 H 25.8 H POC Glucose Random Glucose 548 H* 149 H D Serum Osmolality 288.7 276.6 Lactic Acid Calcium 8.3 L 8.4 Phosphorus Magnesium Total Bilirubin Direct Bilirubin Indirect Bilirubin AST ALT Alkaline Phosphatase Serum Total Protein Albumin Serum HCG, Qual Urine Color Urine Appearance Urine pH Ur Specific [place] Urine Protein Urine Glucose (UA) Urine Ketones Urine Blood Urine Nitrite Urine Bilirubin Urine Urobilinogen Ur Leukocyte Esterase Urine RBC Urine WBC Ur Epithelial Cells Amorphous Sediment Urine Bacteria Serum Ketones Departure - Departure Clinical Impression: Closed head injury with brief loss of consciousness Syncope Qualifiers: Syncope type: unspecified Qualified Code(s): R55 - Syncope and collapse Diabetes type 1, uncontrolled Qualifiers: Glycemic state: with hyperglycemia Qualified Code(s): E10.65 - Type 1 diabetes mellitus with hyperglycemia Disposition: Discharge to Home or Self Care Departure Forms: ED Discharge - Pt. Copy, Patient Portal Self Enrollment Instructions: DI for Diabetes Type 2 Referrals: Marino Roberto III, MD [Primary Care Provider] - 1-5 Days Prescriptions: Ibuprofen [Motrin] 600 mg PO Q6H PRN #20 tab PRN Reason: Mild To Moderate Pain Ondansetron HCl [Zofran] 4 mg PO Q6H PRN #12 tab PRN Reason: Nausea Home Medications: Ambulatory Orders RX: Insulin Aspart [Novolog Flexpen] 10 unit SC TIDFD #0 02/04/14 RX: Insulin Glargine [Lantus] 36 unit SC BID 02/04/14 RX: Levothyroxine Sodium 100 mcg PO DAILY 05/04/15 RX: Lisinopril 20 mg PO DAILY 04/14/16 Ibuprofen [Motrin] 200 - 400 mg PO Q8HR PRN #30 tab 04/27/17 RX: Polyethylene Glycol 3350 [Miralax] 17 gm PO DAILY 04/27/17 RX: Tramadol HCl 50 mg PO Q6HRS #20 tab 09/02/17 Clindamycin HCl 300 mg PO QID 05/27/18 HYDROcodone 5MG/APAP 325MG [[place] 5/325] 1 tab PO Q4H PRN 05/27/18 Quetiapine Fumarate 100 mg PO BEDTIME 05/27/18 Ibuprofen [Motrin] 600 mg PO Q6H PRN #20 tab 12/12/19 Ondansetron HCl [Zofran] 4 mg PO Q6H PRN #12 tab 12/12/19 Additional Instructions: Watch her blood sugars closely over the next 1 to 2 days. Take your insulin as previously prescribed. Drink plenty of fluids. Return to emergency room for worsening headache, vomiting, changes in mental status, fever, or any other concerns.
[2019-12-12] MEDS ORDERED: SODIUM CHLORIDE 0.9% 1000ML 1,000 ML IVS ONE (15:16)
[2019-12-12] MEDS ORDERED: diphenhydrAMINE HCL 50 MG/ML VIAL IV STA (16:08)
[2019-12-12] MEDS ORDERED: METOCLOPRAMIDE HCL INJ 10 MG/2 ML VIAL IV ONE (16:08)
[2019-12-12] MEDS ORDERED: KETOROLAC TROMETHAMINE INJ 30 MG/ML VIAL IV ONE (16:08)
[2019-12-12] MEDS ORDERED: fentaNYL CITRATE INJ 50 MCG/ML 2 ML AMP ONE (19:18)
[2019-12-12 21:46] VITALS: BP 181/105; TEMP 98; O2SAT 95
== END 2019-12-12 21:47 | disposition home or self-care (01) ==
LOC: ER 13:27
DX: S06.9X1A Unspecified intracranial injury with loss of consciousness of 30 minutes or less, initial encounter (principal); R55 Syncope and collapse; E10.65 Type 1 diabetes mellitus with hyperglycemia; I10 Essential (primary) hypertension; E07.9 Disorder of thyroid, unspecified; Z88.2 Allergy status to sulfonamides; Z88.1 Allergy status to other antibiotic agents; Z79.4 Long term (current) use of insulin; Z86.14 Personal history of Methicillin resistant Staphylococcus aureus infection; Z87.891 Personal history of nicotine dependence; Z79.899 Other long term (current) drug therapy; W19.XXXA Unspecified fall, initial encounter; Y92.9 Unspecified place or not applicable
CPT/HCPCS: 36415; 36416; 36600; 70450; 71045; 80048; 80076; 81001; 82009; 82803; 82805; 82948; 83605; 83735; 84100; 84703; 85025; 87040; 93005; J1200; J1885; J2185; J2765; J3010; J7030; J7050

== ENCOUNTER 2020-02-06 08:12 | Emergency (ER) | payer BC ==
[2020-02-06] MEDS ORDERED: ONDANSETRON ODT 8 MG TAB SL ONE (08:42)
[2020-02-06] MEDS ORDERED: ONDANSETRON ODT 8 MG TAB ONE (08:44)
[2020-02-06] MEDS ORDERED: PENICILLIN BENZATHINE 1.2 MU 1.2 MU/2 ML SYG IM ONE (08:59)
[2020-02-06] MEDS ORDERED: SODIUM CHLORIDE 0.9% 1000ML 1,000 ML IVS ONE (09:00)
[2020-02-06] MEDS ORDERED: SODIUM CHLORIDE 0.9% 1000ML 1,000 ML ONE ×2 (09:01→11:24)
[2020-02-06] MEDS ORDERED: DEXAMETHASONE 4 MG TAB PO ONE (09:02)
[2020-02-06] MEDS ORDERED: ACETAMINOPHEN 325 MG TAB PO ONE (09:02)
[2020-02-06] MEDS ORDERED: POTASSIUM CHLORIDE ELIXIR 20 MEQ/15 ML UD PO ONE (09:28)
[2020-02-06] MEDS ORDERED: MAGNESIUM SULFATE PREMIX 2GM 2 GM in PREMIX BAG 1 BAG IVPB ONE (09:28)
--- NOTE | 2020-02-06 09:41 | RAD ---
EXAM DESCRIPTION: Chest,1 View CLINICAL HISTORY: new mild hypoxia COMPARISON: February 06, 2020 IMPRESSION: Single AP portable upright view of the chest shows cardiac silhouette and pulmonary vasculature to be within normal limits. Lungs are normally aerated. Right perihilar fullness and infiltrate extending to the right upper lobe concerning for pneumonia versus aspiration and/or atelectasis. Continued follow-up recommended. No obvious pleural effusion or pneumothorax is seen. Electronically signed by: Jeronimo Hough MD 02/06/2020 9:39 AM CDT
[2020-02-06] MEDS ORDERED: HYDROcodone 5MG/APAP 325MG 1 EA TAB PO ONE (10:01)
[2020-02-06] MEDS ORDERED: LEVOTHYROXINE SODIUM 0.1 MG TAB ONE (10:26)
[2020-02-06] MEDS ORDERED: LEVOTHYROXINE SODIUM 0.075 MG TAB ONE (10:26)
[2020-02-06] MEDS ORDERED: levoFLOXacin 500MG IV 500 MG in PREMIX BAG 1 BAG IVPB ONE (10:44)
--- NOTE | 2020-02-06 11:15 | CT ---
EXAM DESCRIPTION: Abdomen/Pelvis w/Contrast CLINICAL HISTORY: fever, tachy, nv, hypotensive, elev ddimer COMPARISON: September 02, 2017 TECHNIQUE: Pre- and postcontrast CT images of the abdomen and pelvis are obtained This exam was performed according to our departmental dose-optimization program, which includes automated exposure control, adjustment of the mA and/or kV according to patient size and/or use of iterative reconstruction technique . FINDINGS: Visualized lung bases show interstitial thickening in the lingula of the left upper lobe with mild interstitial thickening and groundglass attenuation in the left lower lobe. The liver, spleen, pancreas, adrenal glands, and gallbladder are unremarkable. Moderate atherosclerotic disease is seen. Vascular calcifications of the right kidney are seen. Several nonobstructing calcifications are seen in calyces of the mid to upper pole of the left kidney. The largest measures 5 mm. The other calcifications are less than 2 or 3 mm. No ureteral calcification or obstruction. Urinary bladder is unremarkable. Kidneys show normal cortical enhancement. Uterus and ovaries are unremarkable. The appendix is normal. Stomach is poorly distended but unremarkable. No small bowel obstruction. Mild scattered diverticuli of the colon without associated inflammatory changes or fluid collections. Colon is poorly distended. No free intraperitoneal air or abnormal drainable fluid collections. No pathologic lymphadenopathy. Osseous structures show no aggressive bony lesions. IMPRESSION: Nonobstructing left nephrolithiasis is again seen. Mild colon diverticulosis without CT evidence of diverticulitis. Otherwise no acute findings on CT of the abdomen and pelvis. Findings in the lung bases are described on CT of the chest from today. Electronically signed by: Jeronimo Hough MD 02/06/2020 11:13 AM CDT
[2020-02-06] MEDS ORDERED: NOREPINEPHRINE BITARTRATE 4 MG/4 ML VIAL IVPB ONE (11:24)
[2020-02-06] MEDS ORDERED: DEXTROSE 5% 250ML 250 ML ONE (11:24)
--- NOTE | 2020-02-06 11:25 | CT ---
EXAM DESCRIPTION: CTA Chest CLINICAL HISTORY: fever, tachy, hypotenisve, elev ddimer COMPARISON: April 26, 2017 TECHNIQUE: Postcontrast CT images of the chest are obtained using pulmonary embolism imaging protocol. Three-D MIP reconstructed images of the arterial vasculature are obtained. Coronal and sagittal reconstructed images of the also provided. This exam was performed according to our departmental dose-optimization program, which includes automated exposure control, adjustment of the mA and/or kV according to patient size and/or use of iterative reconstruction technique . FINDINGS: The heart and great vessels are within normal limits. Mild enlargement of the main pulmonary artery measuring 3.1 cm compared to the adjacent ascending thoracic aorta measures 2.7 cm. No definite filling defects or emboli are seen in the pulmonary arteries. Distal branches are not well evaluated. Evaluation is limited by patient breathing motion artifact and limited opacification of the pulmonary arteries. No pleural or pericardial effusion is seen. No pathologically enlarged mediastinal, hilar, or axillary lymphadenopathy. Less than 1 cm mediastinal and axillary lymph nodes are seen. Nonenhancing alveolar consolidation in the right perihilar region extending into the right upper lobe and involving portions of the medial right upper lobe and superior segment of the right upper lobe. Mild areas of groundglass attenuation in the perihilar region left greater than right are seen with mild interstitial thickening in the lingula of the left upper lobe. Mild interstitial thickening in the superior segment left lower lobe. No worrisome pulmonary nodules. No pneumothorax. Osseous structures show no aggressive bony lesions. IMPRESSION: No CT evidence of pulmonary embolism although exam is limited secondary to patient breathing motion artifact and suboptimal opacification of the pulmonary arteries related to timing of the bolus contrast. Bilateral nonenhancing pulmonary infiltrates compatible with bilateral pneumonia most pronounced in the right perihilar region. Recommend continued follow-up to exclude neoplastic process. Mildly enlarged main pulmonary artery suggests pulmonary artery hypertension. Electronically signed by: Jeronimo Hough MD 02/06/2020 11:24 AM CDT
[2020-02-06] MEDS ORDERED: methylPREDNISolone SODIUM SUC 125 MG/2 ML VIAL IV ONE (11:45)
[2020-02-06] MEDS ORDERED: AZITHROMYCIN IV 500 MG in SODIUM CHLORIDE 0.9% 250ML 250 ML IVPB ONE (11:55)
[2020-02-06] MEDS ORDERED: NOREPINEPHRINE BITARTRATE 4 MG in DEXTROSE 5% 250ML 250 ML IVPB SCH (12:00)
--- NOTE | 2020-02-06 12:20 | ED.PDOC ---
History of Present Illness - General Chief Complaint: GI Problem Stated Complaint: n/v/d fever Time Seen by Provider: 02/06/20 08:14 Source: patient, family Exam Limitations: no limitations - History of Present Illness Initial Comments: The patient is a 34-year-old female presenting to the emergency room. The patient has a history of hypertension, diabetes type 1, bipolar disorder, chronic abdominal pain and hypothyroidism. Patient is presenting secondary to increasing fever and increasing generalized pain along with nausea and vomiting. The patient was actually seen about 8 hours earlier in this emergency room for less severe symptoms. She was not actually febrile at that time. She has had a few hours of nausea vomiting at that point. Laboratory work and chest x-ray were reassuring at the time. The patient did have a complete set off. Around times several days on that. Her blood sugar and blood pressures were actually elevated at that time. They were both brought down to the reasonable range and the patient elected to go home at that point. However since the patient went home she has had increasing body aches and actually developed a significant fever up to 103. No altered mental status. She is now also mildly hypoxic with oxygen saturations dropping down to around 85% when they were earlier in the normal range. Systolic blood pressure in the 160s down to the 70s. The patient is tachycardic in the 130s. A clear chest x-ray has now shown bilateral infiltrates. The patient has no point tenderness but generalized abdominal pain. She has not vomited since her arrival here. Reports that her did test positive for covid 3 weeks ago. Timing/Duration: other - About 10 hours Severity: severe Improving Factors: nothing Worsening Factors: nothing Associated Symptoms: fever/chills, headaches, loss of appetite, malaise, nausea/vomiting, shortness of breath Allergies/Adverse Reactions: Allergies Cephalexin [From Keflex] Allergy (Verified 12/12/19 13:52) Rash Sulfamethoxazole w/Trimethoprim [From Bactrim] Allergy (Verified 12/12/19 13:52) Rash Home Medications: Ambulatory Orders Insulin Aspart [Novolog Flexpen] 10 unit SC TIDFD #0 02/04/14 Insulin Glargine [Lantus] 36 unit SC BID 02/04/14 Levothyroxine Sodium 100 mcg PO DAILY 05/04/15 Lisinopril 20 mg PO DAILY 04/14/16 Ibuprofen [Motrin] 200 - 400 mg PO Q8HR PRN #30 tab 04/27/17 Polyethylene Glycol 3350 [Miralax] 17 gm PO DAILY 04/27/17 Tramadol HCl 50 mg PO Q6HRS #20 tab 09/02/17 Clindamycin HCl 300 mg PO QID 05/27/18 HYDROcodone 5MG/APAP 325MG [[place] 5/325] 1 tab PO Q4H PRN 05/27/18 Quetiapine Fumarate 100 mg PO BEDTIME 05/27/18 Ibuprofen [Motrin] 600 mg PO Q6H PRN #20 tab 12/12/19 Ondansetron HCl [Zofran] 4 mg PO Q6H PRN #12 tab 12/12/19 Acetaminophen W/ Codeine [Tylenol W/ CODEINE #3] 1 ea PO Q6HRS PRN #15 02/06/20 Ciprofloxacin HCl [Cipro] 500 mg PO BID #14 tab 02/06/20 Review of Systems - Review of Systems Constitutional: States: fever, malaise, weakness EENTM: States: no symptoms reported Respiratory: States: cough, short of breath Cardiology: States: no symptoms reported Gastrointestinal/Abdominal: States: abdominal pain, nausea, vomiting Genitourinary: States: no symptoms reported Musculoskeletal: States: back pain, muscle pain Skin: States: no symptoms reported Neurological: States: anxiety, headache Endocrine: States: excessive sweating All other Systems: No Change from Baseline Past Medical History (General) - Patient Medical History Hx Seizures: No Hx Stroke: No Hx Dementia: No Hx Asthma: No Hx of COPD: No Hx Cardiac Disorders: No Hx Congestive Heart Failure: No Hx Pacemaker: No Hx Hypertension: Yes Hx Thyroid Disease: Yes Hx Diabetes: Yes Hx Gastroesophageal Reflux: No Hx Renal Disease: No Hx Cancer: No Hx of HIV: No Hx Hepatitis C: No Hx MRSA: Yes MRSA Source:: Wound Surgical History: no surgical history - Vaccination History Hx Tetanus, Diphtheria Vaccination: Yes Hx Influenza Vaccination: No Hx Pneumococcal Vaccination: Yes - 2017 - Social History Hx Tobacco Use: Yes Hx Chewing Tobacco Use: No Hx Alcohol Use: No Hx Substance Use: No Hx Substance Use Treatment: No Hx Depression: No Hx Physical Abuse: No Hx Emotional Abuse: No Hx Suspected Abuse: No - Female History Hx Last Menstrual Period: 02/02/14 Patient : No Family Medical History - Family History Father Living Status: Still Living Hx Family Asthma: No Hx Family Congestive Heart Failure: No Hx Family Hypertension: Yes Hx Family Stroke: No Hx Cardiac Disease: No Hx Family Diabetes: Yes Hx Family Cancer: No Mother Family History: No Known Living Status: Still Living Hx Family Asthma: No Hx Family Congestive Heart Failure: No Hx Family Hypertension: No Hx Family Stroke: Yes Hx Cardiac Disease: No Hx Family Diabetes: Yes - dad Hx Family Cancer: No Hx Family;Other: Bipolar, Thyroid Physical Exam - Physical Exam General Appearance: Alert, Ill Appearing Eye Exam: bilateral normal Ears, Nose, Throat: hearing grossly normal, normal pharynx Neck: full range of motion, supple Respiratory: no respiratory distress, no accessory muscle use, other - Patient is tachypneic. There are mild scattered rails. Good air movement. Cardiovascular/Chest: normal peripheral pulses, no edema, tachycardia Peripheral Pulses: radial,right: 2+, radial,left: 2+ Gastrointestinal/Abdominal: soft, other - Diffuse abdominal discomfort. No rebound or peritoneal signs. No palpable masses. Rectal Exam: deferred Back Exam: no CVA tenderness, no vertebral tenderness, other - The patient has vague back soreness Extremity: normal range of motion, normal inspection, no pedal edema, normal capillary refill Neurologic: hop strainer II-XII nml as tested, alert, oriented x 3 Skin Exam: normal color Comments: Vital Signs - 24 hr 02/06/20 02/06/20 02/06/20 08:23 08:30 09:04 Temperature 102.7 F H 101.8 F H Pulse Rate [ 130 H 126 H left brachial] Respiratory 28 H 28 H 28 H Rate Blood Pressure 119/68 76/48 [left brachial] O2 Sat by Pulse 89 L 92 L Oximetry 02/06/20 02/06/20 02/06/20 09:56 10:30 11:00 Temperature 102.1 F H 102.1 F H 100.3 F H Pulse Rate [ 113 H 110 H 110 H left brachial] Respiratory 18 18 18 Rate Blood Pressure 88/49 85/52 86/52 [left brachial] O2 Sat by Pulse 97 95 93 L Oximetry 02/06/20 11:25 Temperature Pulse Rate [ left brachial] Respiratory Rate Blood Pressure [left brachial] O2 Sat by Pulse 95 Oximetry Progress - Progress Progress: 02/06/20 12:23 The patient is a 34-year-old female presented emergency room with increasing symptoms along with hypotension type, tachycardia, fever and increasing body aches. The patient has a bilateral pneumonia and associated sepsis. the patient Has had known coronavirus exposure as her has had coronavirus 3 weeks ago. This is possibly coronavirus or possibly bacterial in origin. Blood culture has been done. CT angiogram of the chest was negative for any pulmonary embolus. Based on allergies the patient has been started on Levaquin and azithromycin. She has been given a steroid dosage as well for the sepsis. She is oxygenating well on 3 L. The patient has received approximately 3 L of IV fluids yet is still requiring 4 mcg of Levophed to maintain systolic blood pressures in the low 100s. Fever has improved since the Tylenol. The patient is being transferred for higher level of care. Acceptance is appreciated. Additionally the patient does have mild hypokalemia which will need to be followed. Patient has been dosed here for that as well as with a dose of magnesium for hypomagnesemia. Additionally the patient is hypothyroid. She received a dose of 175 mcg of Synthroid here. ruiz sánchez Alvina Critical care time spent is 1 hour in treatment above, as well as in finding placement for this patient at this time. 02/06/20 12:27 02/06/20 13:26 Additionally the patient did test positive for strep throat. She was given a dose of Bicillin L-A. - Results/Orders Results/Orders: Laboratory Tests 02/06/20 02/06/20 02/06/20 01:10 08:30 08:30 WBC RBC Hgb Hct MCV MCH MCHC RDW Plt Count MPV Absolute Neuts (auto) Absolute Lymphs (auto) Absolute Monos (auto) Absolute Eos (auto) Absolute Basos (auto) Neutrophils % Lymphocytes % Monocytes % Eosinophils % Basophils % PT INR PTT (SP) D-Dimer, Quantitative Sodium 135 Potassium 2.9 L D Chloride 102 Carbon Dioxide 21 Anion Gap 14.9 BUN 20 H Creatinine 1.13 BUN/Creatinine Ratio 17.7 POC Glucose Random Glucose 55 L D Serum Osmolality 270.3 L Lactic Acid Calcium 8.7 Magnesium 1.6 L Total Bilirubin 0.4 AST 66 H D ALT 37 Alkaline Phosphatase 132 H Creatine Kinase 37 CK-MB (CK-2) 0.6 CK-MB (CK-2) % Not Reportable Troponin I < 0.02 B-Natriuretic Peptide 71.8 Serum Total Protein 6.7 Albumin 2.5 L Globulin 4.2 H Albumin/Globulin Ratio 0.6 L Amylase 70 Lipase 23 TSH 23.45 H Serum HCG, Qual Urine Opiates Screen Negative Urine Barbiturates Negative Ur Phencyclidine Scrn Negative U Amphetamin/Meth Scrn Negative U Benzodiazepines Scrn Negative U Cocaine Metab Screen Negative U Cannabinoids Screen Negative Group A Strep Rapid Positive 02/06/20 02/06/20 02/06/20 08:30 08:30 08:30 WBC 9.9 RBC 3.80 L Hgb 12.0 Hct 34.8 L MCV 91.7 MCH 31.5 H MCHC 34.3 RDW 12.9 Plt Count 229 MPV 8.2 Absolute Neuts (auto) 9.40 H Absolute Lymphs (auto) 0.30 L Absolute Monos (auto) 0.10 L Absolute Eos (auto) 0.10 Absolute Basos (auto) 0.00 Neutrophils % 95.1 H Lymphocytes % 3.1 L Monocytes % 0.6 L Eosinophils % 0.8 L Basophils % 0.4 PT 10.1 INR 1.02 PTT (SP) 27.4 D-Dimer, Quantitative Sodium Potassium Chloride Carbon Dioxide Anion Gap BUN Creatinine BUN/Creatinine Ratio POC Glucose Random Glucose Serum Osmolality Lactic Acid 3.4 H* Calcium Magnesium Total Bilirubin AST ALT Alkaline Phosphatase Creatine Kinase CK-MB (CK-2) CK-MB (CK-2) % Troponin I B-Natriuretic Peptide Serum Total Protein Albumin Globulin Albumin/Globulin Ratio Amylase Lipase TSH Serum HCG, Qual Urine Opiates Screen Urine Barbiturates Ur Phencyclidine Scrn U Amphetamin/Meth Scrn U Benzodiazepines Scrn U Cocaine Metab Screen U Cannabinoids Screen Group A Strep Rapid 02/06/20 02/06/20 02/06/20 08:30 08:30 08:35 WBC RBC Hgb Hct MCV MCH MCHC RDW Plt Count MPV Absolute Neuts (auto) Absolute Lymphs (auto) Absolute Monos (auto) Absolute Eos (auto) Absolute Basos (auto) Neutrophils % Lymphocytes % Monocytes % Eosinophils % Basophils % PT INR PTT (SP) D-Dimer, Quantitative 1380.0 H* Sodium Potassium Chloride Carbon Dioxide Anion Gap BUN Creatinine BUN/Creatinine Ratio POC Glucose 59 L Random Glucose Serum Osmolality Lactic Acid Calcium Magnesium Total Bilirubin AST ALT Alkaline Phosphatase Creatine Kinase CK-MB (CK-2) CK-MB (CK-2) % Troponin I B-Natriuretic Peptide Serum Total Protein Albumin Globulin Albumin/Globulin Ratio Amylase Lipase TSH Serum HCG, Qual Negative Urine Opiates Screen Urine Barbiturates Ur Phencyclidine Scrn U Amphetamin/Meth Scrn U Benzodiazepines Scrn U Cocaine Metab Screen U Cannabinoids Screen Group A Strep Rapid 02/06/20 09:49 WBC RBC Hgb Hct MCV MCH MCHC RDW Plt Count MPV Absolute Neuts (auto) Absolute Lymphs (auto) Absolute Monos (auto) Absolute Eos (auto) Absolute Basos (auto) Neutrophils % Lymphocytes % Monocytes % Eosinophils % Basophils % PT INR PTT (SP) D-Dimer, Quantitative Sodium Potassium Chloride Carbon Dioxide Anion Gap BUN Creatinine BUN/Creatinine Ratio POC Glucose 117 H D Random Glucose Serum Osmolality Lactic Acid Calcium Magnesium Total Bilirubin AST ALT Alkaline Phosphatase Creatine Kinase CK-MB (CK-2) CK-MB (CK-2) % Troponin I B-Natriuretic Peptide Serum Total Protein Albumin Globulin Albumin/Globulin Ratio Amylase Lipase TSH Serum HCG, Qual Urine Opiates Screen Urine Barbiturates Ur Phencyclidine Scrn U Amphetamin/Meth Scrn U Benzodiazepines Scrn U Cocaine Metab Screen U Cannabinoids Screen Group A Strep Rapid COVID test is a send off. Chest x-ray shows right hilar infiltrate. CT angiogram of the chest shows no obvious pulmonary embolus. She does have bilateral scattered pneumonia however. See report for details. CT of the abdomen pelvis with contrast shows no acute pathology aside from the lung pathology. Departure - Departure Clinical Impression: Septic shock, Lactic acidosis, Hypokalemia, Hypomagnesemia Bilateral pneumonia Qualifiers: Pneumonia type: due to unspecified organism Lung location: unspecified part of lung Qualified Code(s): J18.9 - Pneumonia, unspecified organism Disposition: Transfer to Hospital Condition: Poor Departure Forms: ED Discharge - Pt. Copy, Patient Portal Self Enrollment Referrals: Marino Roberto III, MD [Primary Care Provider] - 1-2 Weeks Home Medications: Ambulatory Orders Insulin Aspart [Novolog Flexpen] 10 unit SC TIDFD #0 02/04/14 Insulin Glargine [Lantus] 36 unit SC BID 02/04/14 Levothyroxine Sodium 100 mcg PO DAILY 10/09/15 Lisinopril 20 mg PO DAILY 04/14/16 Ibuprofen [Motrin] 200 - 400 mg PO Q8HR PRN #30 tab 04/27/17 Polyethylene Glycol 3350 [Miralax] 17 gm PO DAILY 04/27/17 Tramadol HCl 50 mg PO Q6HRS #20 tab 09/02/17 Clindamycin HCl 300 mg PO QID 05/27/18 HYDROcodone 5MG/APAP 325MG [[place] 5/325] 1 tab PO Q4H PRN 05/27/18 Quetiapine Fumarate 100 mg PO BEDTIME 05/27/18 Ibuprofen [Motrin] 600 mg PO Q6H PRN #20 tab 12/12/19 Ondansetron HCl [Zofran] 4 mg PO Q6H PRN #12 tab 12/12/19 Acetaminophen W/ Codeine [Tylenol W/ CODEINE #3] 1 ea PO Q6HRS PRN #15 02/06/20 Ciprofloxacin HCl [Cipro] 500 mg PO BID #14 tab 02/06/20
[2020-02-06] MEDS ORDERED: INSULIN LISPRO 100 UNITS/ML PEN SUBCU ONE (14:39)
[2020-02-06] MEDS ORDERED: KETOROLAC TROMETHAMINE INJ 30 MG/ML VIAL ONE (14:53)
[2020-02-06] MEDS ORDERED: KETOROLAC TROMETHAMINE INJ 30 MG/ML VIAL IV ONE (14:54)
[2020-02-06 17:17] VITALS: BP 137/81; TEMP 99.7; O2SAT 91
[2020-02-07] MEDS ORDERED: LEVOTHYROXINE SODIUM 0.1 MG, LEVOTHYROXINE SODIUM 0.075 MG PO ONE ×2 (09:58)
== END 2020-02-06 15:45 | disposition short-term general hospital (02) ==
LOC: ER 08:12
DX: J18.9 Pneumonia, unspecified organism (principal); A41.9 Sepsis, unspecified organism; R65.21 Severe sepsis with septic shock; E87.2 Acidosis; E87.6 Hypokalemia; E83.42 Hypomagnesemia; E03.9 Hypothyroidism, unspecified; R11.2 Nausea with vomiting, unspecified; E10.9 Type 1 diabetes mellitus without complications; I10 Essential (primary) hypertension; R50.9 Fever, unspecified; F17.200 Nicotine dependence, unspecified, uncomplicated; Z11.59 Encounter for screening for other viral diseases; Z79.4 Long term (current) use of insulin; Z79.899 Other long term (current) drug therapy
CPT/HCPCS: 36415; 36416; 71045; 71275; 74177; 80053; 80307; 82150; 82550; 82553; 82947; 82948; 83605; 83690; 83735; 83880; 84443; 84484; 84703; 85025; 85379; 85610; 85730; 87040; 87502; 87880; 94760; J0456; J0561; J1815; J1885; J1956; J2060; J2930; J3475; J7030; J7050; J7060; J8540

== ENCOUNTER 2020-05-24 16:10 | Inpatient (IN) | payer SELFPAY ==
[~2020-05-24 16:10] MED LIST changes: -ACETAMINOPHEN W/COD #3 TAB (ER Disp) PO ONE; -CLINDAMYCIN IV 900MG 50 ML IVPB ONE; -HYDROmorphone HCL INJ 2 MG/ML VIAL IV ONE; -LIDOCAINE 1% 10 ML VIAL INJ ONE; -ONDANSETRON INJ 4 MG/2 ML VIAL IV ONE; -PLAIN PACKING STRIP 1/4 1 EA BTTL TOP ONE; -POVIDONE IODINE 10 % 15 ML UD TOP ONE; +PROPOFOL 200 MG/20 ML VIAL IV ONE; -SODIUM CHLORIDE 0.9% 1000ML 1,000 ML IVS ONE; -cloNIDine HCL 0.1 MG TAB PO ONE
--- NOTE | 2020-05-24 16:25 | HP ---
SUPERVISING PHYSICIAN: Mejia Person MD CHIEF COMPLAINT: Cellulitis in the left deltoid. HISTORY OF PRESENT ILLNESS: Ms. Saavedra is a 34-year-old female patient who has a history of type 1 diabetes mellitus and hypertension. She had been seen in the clinic on 05/17/[address] Mann for a developing area of cellulitis in her left deltoid and was put on doxycycline at that time. The patient denies that she has had any injuries to that shoulder, no injections. She did followup on 05/24/[address] Roberto' office and the area of cellulitis had worsened and she had not responded to the doxycycline as expected. Given that she is a type 1 diabetic and the worsening cellulitis, Dr. Roberto requested the patient be admitted for further treatment and evaluation of developing cellulitis with required treatment with IV antibiotics and ensure blood sugars are controlled and she does not go into diabetic ketoacidosis. The patient was placed in observation in stable condition. PAST MEDICAL HISTORY: 1. Hyperlipidemia. 2. Hypertension. 3. Type 1 diabetes with complications including retinopathy and peripheral neuropathies. 4. Bipolar disorder with anxiety attacks. 5. History of COVID-19 infection in January of 2020 requiring 5 days in ICU. PAST SURGICAL HISTORY: 1. Left eye repair in 2019. HOME MEDICATIONS: We are awaiting an updated list of medications and verified in the electronic medical record. ALLERGIES: CEPHALEXIN, DOXYCYCLINE, BACTRIM. FAMILY HISTORY: Father has history of hypertension. Mother has had several strokes and is bipolar. She has one sister who is healthy. SOCIAL HISTORY: The patient is disabled due to complications from diabetes. 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 She is . She has no children. She currently smokes about half to one pack of cigarettes per day. She denies any recent alcohol or illicit drug use, but has had a history of drug abuse in her teens. REVIEW OF SYSTEMS: CONSTITUTIONAL: Denies any fevers, chills, general malaise or unintentional weight loss. HEENT: Denies headaches, sore throats, nasal congestion, vision changes. RESPIRATORY: Denies coughing, wheezing or shortness of breath. CARDIOVASCULAR: Denies chest pain, palpitations or syncopal episodes. GASTROINTESTINAL: Denies nausea, vomiting, diarrhea, constipation or abdominal pain. GENITOURINARY: Denies dysuria, hematuria, polyuria. MUSCULOSKELETAL: As noted in history of present illness, area of cellulitis to the left deltoid. SKIN: As noted in musculoskeletal and history of present illness. NEUROLOGIC: Denies headaches, vision changes, ataxia, seizures or other focal motor deficits. HEMATOLOGIC: Denies easy bruising, unexplained bleeding or transfusion reactions. PHYSICAL EXAMINATION: VITAL SIGNS: On admission, she was afebrile with temperature 97.9. She was hypotensive initially with blood pressure 85/56, heart rate 114, oxygen saturation 98% with respirations 18. GENERAL: The patient does not look to be in any distress. She does look a little uncomfortable secondary to the pain in her right deltoid region, but she is alert. HEENT: Tympanic membranes clear bilaterally. Oropharynx is pink. Mucous membranes were notably dry. NECK: Supple, nontender with full range of motion. No jugular venous distention noted. RESPIRATORY: Lung sounds are clear to auscultation bilaterally without any rhonchi, wheezes or rales. CARDIOVASCULAR: Regular rate and rhythm without any appreciable murmurs, gallops, or rubs. ABDOMEN: Soft, nontender. Positive bowel sounds. EXTREMITIES: She has an area of cellulitis involving nearly the entire deltoid on the left side with multiple areas of pustule looking drainage. The area is highly tender to palpation. It is warm. It is erythematous. There is no obvious fluctuation. It is mainly indurated with no areas of consolidation noted on palpation. Distal pulses 2+ bilaterally. She does have some axillary lymph node adenopathy on the left. NEUROLOGIC: Cranial nerves II-XII are grossly intact. Facial features are symmetrical. Extraocular movements are within normal limits. There is no nystagmus noted. The patient is alert and oriented times three. SKIN: As noted above in musculoskeletal. LABORATORY: CBC showed leukocytosis of 15,400 with left shift, but no bands. Hemoglobin 13.3, hematocrit 39.1, platelet count 460,000. Initial chemistries did show glucose initially was 591, sodium 125 corrected to 135 for the hyperglycemia. Potassium 4.2, carbon dioxide a little low at 20, anion gap elevated at 19, BUN 20, creatinine 1.24. Serum ketones negative. Lactic acid normal at 1.3. Calcium normal. Liver functions within normal limits. Alkaline phosphatase elevated at 155. C-reactive protein elevated at 13.8. Albumin 2.7. Serum HCG negative. Urinalysis showed 100 protein, 500 glucose, 15 ketones, small amount of blood. Microscopic revealed 3 to 5 RBCs and urine ketone test negative. MICROBIOLOGY: Wound culture was collected in Dr. Roberto' office on initial exam prior to antibiotics being started. Blood cultures were completed on admission prior to starting antibiotics. RADIOLOGY: CT with contrast of the upper extremity, deltoid and left shoulder, per radiologic interpretation showed left shoulder cellulitis with deltoid myositis without any evidence of drainable abscess or necrotizing soft tissue infection. ASSESSMENT: 1. Cellulitis of the left shoulder and deltoid with underlying myositis, failing outpatient treatment on doxycycline with complications from diabetes. 2. Diabetes mellitus, type 1, with mild diabetic ketoacidosis on admission. 3. Sepsis secondary to #1 with the patient showing source of infection as noted in #1 with the patient being hypotensive with leukocytosis and elevated CRP. 4. History of bipolar disorder with anxiety attacks. 5. History of COVID-19 pneumonia treated in January of 2020. PLAN: Ms. Saavedra is going to be initially placed in observation for treatment of mild diabetic ketoacidosis along with complicated cellulitis of the left shoulder. We will start her on vancomycin per pharmacy protocol as well as Unasyn. We did draw blood cultures prior to admission as well as cultures were collected. We will follow those cultures to target antibiotic therapy as appropriate to those cultures. We will start her on DKA treatment. At this point, I am going to hold off on putting her on an insulin drip because she has horrible veins. We will see if we can get either midline or PICC line. Until then, we will treat her with fluids and subcutaneous and IV insulin. She will be given pain control with Dilaudid. I gave her some Toradol. I also gave her some IV Tylenol. She will be on an 1800 calorie diet. Until the patient can transition to outpatient management, we will continue to monitor and treat as needed. I anticipate her length of stay to be at least 1 to 2 days, possibly longer considering she is a brittle diabetic. Until then, we will continue to monitor and treat as needed. #[id number] [facility]
[2020-05-24] MEDS ORDERED: KETOROLAC TROMETHAMINE INJ 30 MG/ML VIAL IV ONE (16:35)
[2020-05-24] MEDS ORDERED: VANCOMYCIN PER PHARMACY IVPB SCH (17:00)
[2020-05-24] MEDS ORDERED: ONDANSETRON INJ 4 MG/2 ML VIAL IV PRN (18:15)
[2020-05-24] MEDS ORDERED: SODIUM CHLORIDE 0.9% (FLUSH) 10 ML SYG IV PRN (18:15)
[2020-05-24] MEDS ORDERED: GLUCAGON INJ 1 MG VIAL SUBCU PRN (18:15)
[2020-05-24] MEDS: VANCOMYCIN HCL INJ 1,000 MG, VANCOMYCIN HCL INJ 250 MG in SODIUM CHLORIDE 0.9% 250ML 25... IVPB SCH ×2 (18:26→19:30)
[2020-05-24] MEDS ORDERED: AMPICILLIN & SULBACTAM SODIUM 1.5 GM in SODIUM CHL 0.9% 50ML MIN-BAG+ 50 ML IVPB SCH (18:30)
[2020-05-24] MEDS ORDERED: SODIUM CHLORIDE 0.9% 1000ML 1,000 ML IVS ONE ×2 (19:34→22:16)
[2020-05-24] MEDS ORDERED: CARVEDILOL 12.5 MG TAB ONE (19:35)
[2020-05-24] MEDS ORDERED: INSULIN, REG.(HUMAN) 100 U/ML VIAL IV ONE (19:36)
[2020-05-24] MEDS: MORPHINE SULFATE INJ 10 MG/ML VIAL IV PRN ×2 (20:02→21:14)
[2020-05-24] MEDS: QUEtiapine FUMARATE 100 MG TAB PO SCH (20:46)
[2020-05-24] MEDS: ENOXAPARIN SODIUM 40 MG/0.4 ML SYG SUBCU SCH (20:47)
[2020-05-24] MEDS ORDERED: NON-FORMULARY MEDICATION 1 EA MIS (Carvedilol [Carvedilol] 25 MG) PO SCH (21:00)
[2020-05-24] MEDS ORDERED: HYDROmorphone HCL INJ 2 MG/ML VIAL ONE (21:49)
[2020-05-24] MEDS ORDERED: INSULIN DETEMIR 100 UNITS/ML PEN SUBCU ONE ×2 (21:50→22:15)
[2020-05-24] MEDS: INSULIN LISPRO 100 UNITS/ML PEN SUBCU SCH (21:59)
[2020-05-24] MEDS ORDERED: INSULIN, REG.(HUMAN) 100 U/ML VIAL SUBCU ONE (22:15)
[2020-05-24] MEDS ORDERED: HYDROmorphone HCL INJ 2 MG/ML VIAL IV ONE (22:15)
[2020-05-24] MEDS ORDERED: INSULIN LISPRO 100 UNITS/ML PEN SUBCU ONE (22:28)
--- NOTE | 2020-05-25 00:18 | CT ---
EXAM: CT, left upper extremity, with contrast CLINICAL HISTORY: abcess to left deltoid COMPARISON: None. TECHNIQUE: Multiple contiguous axial CT images of the left upper extremity were performed with intravenous contrast FINDINGS: There is a extensive cellulitis involving the subcutaneous soft tissues overlying the left deltoid muscle. There is also heterogeneous attenuation of the deltoid muscle indicating myositis. There is however no evidence of an organized rim-enhancing fluid collection. There is no evidence of subcutaneous emphysema Normal osseous structures. No destructive osseous lesion, fracture or dislocation. Reactive axillary lymph nodes noted. Atelectasis noted in the left lung. IMPRESSION: 1. Left shoulder cellulitis and deltoid myositis, without evidence of drainable abscess or of necrotizing soft tissue infection. Electronically signed by: Moris Clark MD 05/25/2020 12:17 AM CDT
[2020-05-25] MEDS: HYDROmorphone HCL INJ 2 MG/ML VIAL IV PRN ×4 (00:31→20:31)
[2020-05-25] MEDS ORDERED: ACETAMINOPHEN IV 1000MG 1,000 MG in PREMIX BOTTLE 1 BOTTLE IVPB ONE (00:31)
[2020-05-25] MEDS ORDERED: tiZANidine 4 MG TAB PO ONE (00:32)
[2020-05-25] MEDS ORDERED: KETOROLAC TROMETHAMINE INJ 30 MG/ML VIAL IV ONE (00:33)
[2020-05-25] MEDS ORDERED: HYDROmorphone HCL INJ 2 MG/ML VIAL IV ONE (00:35)
[2020-05-25] MEDS ORDERED: ACETAMINOPHEN IV 1000MG 100 ML ONE (00:55)
[2020-05-25] MEDS ORDERED: SODIUM CHLORIDE 0.9% 1000ML 1,000 ML IVS ONE (00:56)
[2020-05-25] MEDS ORDERED: AMPICILLIN & SULBACTAM SODIUM 1.5 GM VIAL ONE (01:03)
[2020-05-25] MEDS ORDERED: SODIUM CHL 0.9% 50ML MIN-BAG+ 50 ML IVPB ONE (01:03)
[2020-05-25] MEDS: AMPICILLIN & SULBACTAM SODIUM 1.5 GM in SODIUM CHL 0.9% 50ML MIN-BAG+ 50 ML IVPB SCH ×3 (01:11→17:35)
[2020-05-25] MEDS: IV SET AND CAP CHANGE INJ INJ SCH (01:17)
[2020-05-25] MEDS ORDERED: KCL 20MEQ/0.45% NS 1,000 ML IVS ONE (03:11)
[2020-05-25] MEDS ORDERED: KCL 20MEQ/0.45% NS 1,000 ML IVS PRN (03:11)
[2020-05-25] MEDS ORDERED: DEXTROSE 50% 25 GM/50 ML SYG IV ONE (05:20)
[2020-05-25] MEDS ORDERED: DEXTROSE 5% 1000ML 1,000 ML IVS PRN (06:00)
[2020-05-25] MEDS: DEXTROSE 50% 25 GM/50 ML SYG IV PRN (06:12)
[2020-05-25] MEDS ORDERED: DEXTROSE 5% 1000ML 1,000 ML IVS ONE (06:19)
--- NOTE | 2020-05-25 06:20 | CT ---
CT HEAD WITHOUT CONTRAST CLINICAL HISTORY: patient lethargic COMPARISON: CT head without contrast 12/12/2019 TECHNIQUE: Axial unenhanced CT imaging of the brain. Reformatted coronal and sagittal images obtained. This examination was performed according to our departmental dose optimization program, which includes automated exposure control, adjustment of the mA and/or kV according to patient size and/or use of iterative reconstruction technique. FINDINGS: Ventricle size and contour is normal. Extra-axial fluid spaces are within normal limits. Crawford-white matter differentiation is preserved. There is no hemorrhage, mass, midline shift. No evidence of acute large territorial territorial infarction. Normal cerebellum and vermis. Fourth ventricle is midline. Prepontine cisterns are not effaced. Mild atherosclerosis within the cavernous segments of the internal carotid arteries. Intraorbital contents appear normal. Clear paranasal sinuses. Mastoid air cells are clear. Skull base is intact. Intact calvarium. Normal scalp soft tissues. IMPRESSION: 1. No intracranial acute finding. Electronically signed by: Lizzette Monahan DO 05/25/2020 6:18 AM CDT
[2020-05-25] MEDS: VANCOMYCIN HCL INJ 1,000 MG, VANCOMYCIN HCL INJ 250 MG in SODIUM CHLORIDE 0.9% 250ML 25... IVPB SCH (06:28)
[2020-05-25] MEDS ORDERED: KCL 20MEQ/D5 1/2NS 1,000 ML IVS PRN (06:44)
[2020-05-25] MEDS: INSULIN LISPRO 100 UNITS/ML PEN SUBCU SCH ×4 (08:10→20:43)
[2020-05-25] MEDS ORDERED: FLUCONAZOLE 150 MG TAB PO ONE (09:00)
[2020-05-25] MEDS: amLODIPine BESYLATE 5 MG TAB PO SCH (10:52)
[2020-05-25] MEDS: BIFIDOBACTERIUM INFANTIS 4 MG CAP PO SCH (10:52)
[2020-05-25] MEDS: LISINOPRIL 10 MG TAB PO SCH (10:52)
[2020-05-25] MEDS: FUROSEMIDE 40 MG TAB PO SCH (10:52)
[2020-05-25] MEDS: LEVOTHYROXINE SODIUM 0.1 MG TAB PO SCH (10:52)
[2020-05-25] MEDS: CARVEDILOL 12.5 MG TAB PO SCH ×2 (10:52→20:33)
[2020-05-25] MEDS ORDERED: POTASSIUM CHLORIDE 20 MEQ TAB PO ONE (11:18)
[2020-05-25] MEDS: KETOROLAC TROMETHAMINE INJ 30 MG/ML VIAL IV SCH ×2 (15:52→21:32)
[2020-05-25] MEDS: VANCOMYCIN HCL INJ 1,000 MG in SODIUM CHLORIDE 0.9% 250ML 250 ML IVPB SCH (15:53)
--- NOTE | 2020-05-25 16:54 | PN ---
SUPERVISING PHYSICIAN: Delvis Person MD DATE: 05/25/20 SUBJECTIVE: The patient is sitting up in bed. She is crying. She says her arm hurts and nothing has helped relieve it, even the Dilaudid. Her nurses reported that most of the time she sleeps until she hears someone coming in the door and then she begins to cry. She does have Dilaudid for pain. Early this morning, she had actually had a low blood sugar at 45 and was diaphoretic and has been fairly unresponsive but she was given treatment for low blood sugars and has no longer had any issues as most of her blood sugars have been in the upper 100s to low 200s. She denies any chest pain, nausea or vomiting. OBJECTIVE: VITAL SIGNS: Temperature 98.8, heart rate 88, blood pressure 124/62, respiratory rate 18, oxygen saturation 93% on room air. CHEST: Essentially clear to auscultation bilaterally. CARDIAC: Regular rate and rhythm. ABDOMEN: Soft, nondistended, non-tender. Bowel sounds are positive. EXTREMITIES: She has an area on her left deltoid about the size of a quarter that is somewhat scabbed. It is erythematous and edematous around it. It does appear to be a slightly smaller area as defined by the demarcation from yesterday. It is very tender to palpation, there is no fluctuance. Her radial pulses are +2 bilaterally. NEUROLOGIC: She is awake, alert, and oriented x3. LABORATORY: Blood sugar ran less than 40 at 5:20 this morning to 270 at 10:30 this morning, now it is 217. Potassium is slightly low at 3.3, calcium 7.9, BUN is 28, creatinine 1.31. Head CT shows no intracranial finding. All other labs and films have been reviewed via the EMR. ASSESSMENT: 1. Cellulitis of the left shoulder and deltoid with underlying myositis, failing outpatient treatment on doxycycline with complications from diabetes. 2. Diabetes mellitus, type 1, with mild diabetic ketoacidosis on admission. 3. Sepsis secondary to #1 with the patient showing source of infection as noted in #1 with the patient being hypotensive with leukocytosis and elevated CRP. 4. History of bipolar disorder with anxiety attacks. 5. History of COVID-19 pneumonia treated in January of 2020. PLAN: We will continue present supportive care. I have changed her blood sugar checks to every 4 hours. She usually gets 31 units of long-acting insulin at night, we will only give her 20 tonight and monitor her blood sugars closely. I have ordered lab for in the morning. I spoke with her primary care physician, Dr. Roberto, and he felt we should keep her until her micro reports are available, treat her with the present IV antibiotics until those results are available. We will follow and treat as needed. #[id number] [facility]
[2020-05-25] MEDS: QUEtiapine FUMARATE 100 MG TAB PO SCH (20:32)
[2020-05-25] MEDS: ENOXAPARIN SODIUM 40 MG/0.4 ML SYG SUBCU SCH (20:32)
[2020-05-25] MEDS: INSULIN DETEMIR 100 UNITS/ML PEN SUBCU SCH (21:05)
[2020-05-26] MEDS: AMPICILLIN & SULBACTAM SODIUM 1.5 GM in SODIUM CHL 0.9% 50ML MIN-BAG+ 50 ML IVPB SCH ×3 (01:00→16:35)
[2020-05-26] MEDS: VANCOMYCIN HCL INJ 1,000 MG in SODIUM CHLORIDE 0.9% 250ML 250 ML IVPB SCH ×2 (01:38→13:47)
[2020-05-26] MEDS: KETOROLAC TROMETHAMINE INJ 30 MG/ML VIAL IV SCH ×2 (03:58→09:12)
[2020-05-26] MEDS: LEVOTHYROXINE SODIUM 0.1 MG TAB PO SCH (06:02)
[2020-05-26] MEDS: INSULIN LISPRO 100 UNITS/ML PEN SUBCU SCH ×4 (07:19→20:05)
[2020-05-26] MEDS: HYDROmorphone HCL INJ 2 MG/ML VIAL IV PRN ×4 (08:22→19:52)
[2020-05-26] MEDS: BIFIDOBACTERIUM INFANTIS 4 MG CAP PO SCH (09:09)
[2020-05-26] MEDS: CARVEDILOL 12.5 MG TAB PO SCH ×3 (09:09→20:04)
[2020-05-26] MEDS: amLODIPine BESYLATE 5 MG TAB PO SCH ×2 (09:09→09:26)
[2020-05-26] MEDS: FUROSEMIDE 40 MG TAB PO SCH ×2 (09:10→09:26)
[2020-05-26] MEDS: LISINOPRIL 10 MG TAB PO SCH ×2 (09:10→09:26)
[2020-05-26] MEDS ORDERED: MAGNESIUM SULFATE PREMIX 2GM 2 GM in PREMIX BAG 1 BAG IVPB ONE (09:33)
[2020-05-26] MEDS ORDERED: MAGNESIUM SULFATE PREMIX 2GM 50 ML IVPB ONE (10:43)
--- NOTE | 2020-05-26 16:53 | PN ---
SUPERVISING PHYSICIAN: Delvis Person MD DATE: 05/26/20 SUBJECTIVE: The patient is lying in bed asleep. She does not appear to be in distress. Nursing reports that she has been more comfortable over the last 12 to 18 hours. OBJECTIVE: VITAL SIGNS: Temperature 98, heart rate 96, blood pressure 105/60, respiratory rate 18, oxygen saturation 93% on room air. CHEST: Essentially clear to auscultation bilaterally. CARDIAC: Regular rate and rhythm. EXTREMITIES: The area on her left upper arm is much less edematous today with a small amount of erythema surrounding a central scabbed over area. There is no drainage noted, no fluctuance. It is somewhat tender to palpation. Her radial pulses are palpable at +2 bilaterally. NEUROLOGIC: She is sleepy but oriented x3. LABORATORY: WBC 14,300 with hemoglobin 9.4, hematocrit 27.6 with a left shift on her differential. Blood sugars have run between 99 and 195. Electrolytes are basically was negative with the exception of her calcium is slightly low at 7.6 and magnesium 1.7. BUN is 30, creatinine is 2.06. AST 84, alkaline phosphatase 189. Preliminary blood cultures show no growth after 24 hours. Wound culture is pending. All other labs and films have been reviewed via the EMR. ASSESSMENT: 1. Cellulitis of the left shoulder and deltoid area with underlying myositis, failing outpatient treatment on doxycycline. complicated by diabetes. She has now failed observation in the hospital. 2. Diabetes mellitus, type 1, initially with mild diabetic ketoacidosis that has resolved. 3. Sepsis secondary to #1. 4. History of bipolar disorder with anxiety attacks. 5. History of COVID-19 pneumonia treated in January of 2020. PLAN: We will continue present supportive care including the continued IV antibiotics as ordered. I have changed her to a full admission due to her WBC still being elevated and although the wound is getting better, it is only slowly improving and she still has quite significant pain. I will wait for her wound cultures to be resulted as per recommendations by her primary care physician, Dr. Roberto. Hopefully by Thursday when her cultures are available, we can continue treatment as an outpatient given what sensitivities will show. I have ordered lab for in the morning including a CRP. She has also gotten some magnesium replacement. Will continue to monitor her cultures. [facility][id number] [facility]
[2020-05-26] MEDS: ACETAMINOPHEN 325 MG TAB PO PRN (19:53)
[2020-05-26] MEDS: QUEtiapine FUMARATE 100 MG TAB PO SCH (20:04)
[2020-05-26] MEDS: ENOXAPARIN SODIUM 40 MG/0.4 ML SYG SUBCU SCH (20:05)
[2020-05-26] MEDS: INSULIN DETEMIR 100 UNITS/ML PEN SUBCU SCH (20:07)
[2020-05-26] MEDS ORDERED: CHLORHEXIDINE GLUCONATE 4 % 15 ML UD TOP ONE (21:03)
[2020-05-27] MEDS: AMPICILLIN & SULBACTAM SODIUM 1.5 GM in SODIUM CHL 0.9% 50ML MIN-BAG+ 50 ML IVPB SCH ×3 (00:32→17:41)
[2020-05-27] MEDS: HYDROmorphone HCL INJ 2 MG/ML VIAL IV PRN ×6 (00:46→22:02)
[2020-05-27] MEDS: VANCOMYCIN HCL INJ 1,000 MG in SODIUM CHLORIDE 0.9% 250ML 250 ML IVPB SCH ×2 (01:32→19:18)
[2020-05-27] MEDS ORDERED: CHLORHEXIDINE GLUCONATE 4 % 15 ML UD TOP ONE (03:03)
[2020-05-27] MEDS ORDERED: INSULIN LISPRO 100 UNITS/ML PEN SUBCU ONE (03:24)
[2020-05-27] MEDS: ACETAMINOPHEN 325 MG TAB PO PRN ×2 (03:28→22:03)
[2020-05-27] MEDS: LEVOTHYROXINE SODIUM 0.1 MG TAB PO SCH (05:45)
[2020-05-27] MEDS: INSULIN LISPRO 100 UNITS/ML PEN SUBCU SCH ×4 (07:58→21:27)
[2020-05-27] MEDS: BIFIDOBACTERIUM INFANTIS 4 MG CAP PO SCH (09:06)
[2020-05-27] MEDS: CARVEDILOL 12.5 MG TAB PO SCH ×2 (09:06→21:39)
[2020-05-27] MEDS: FUROSEMIDE 40 MG TAB PO SCH (09:06)
[2020-05-27] MEDS: LISINOPRIL 10 MG TAB PO SCH (09:07)
[2020-05-27] MEDS: amLODIPine BESYLATE 5 MG TAB PO SCH (09:07)
[2020-05-27] MEDS: CHLORHEXIDINE GLUC 4% 15ML 45 ML, WATER FOR IRRIGATION 1,000 ML TOP SCH ×4 (09:08→21:40)
--- NOTE | 2020-05-27 18:34 | PN ---
SUPERVISING PHYSICIAN: Mejia Person MD DATE: 05/27/20 SUBJECTIVE: The patient is sleeping. She awakens easily. After awaking, she is crying that the pain in her arm continues although she has been resting without any incidents. I explained to her that her culture and sensitivity will be back tomorrow and hopefully she will be able to be discharged at that time to have close followup with Dr. Roberto. OBJECTIVE: VITAL SIGNS: Temperature 98.4, heart rate 95, blood pressure 146/86, respiratory rate 18, oxygen saturation 94% on room air. GENERAL: This is a 34-year-old female patient who lying in her hospital bed. She is in no acute distress. CHEST: Essentially clear to auscultation bilaterally. CARDIAC: Regular rate and rhythm. EXTREMITIES: Her left upper arm has much less swelling and there are no areas of fluctuance or drainage. The redness is only surrounding the scabbed area and the swelling is greatly decreased. It is tender to palpation around the area of the wound. Bilateral radial pulses are palpable. NEUROLOGIC: Awake, alert and oriented x3 although she is tearful. LABORATORY: WBCs 12,000, hemoglobin 8.9, hematocrit 26.4. Blood sugars have run between 219 and 308. Sodium 134, potassium 4.3, chloride 106, BUN 38, creatinine 2.45, calcium 7.8, magnesium 2.3, C-reactive protein 16.2. MICROBIOLOGY: Preliminary blood cultures show no growth after 48 hours. Wound culture is pending. All other labs and films have been reviewed via the EMR. ASSESSMENT: 1. Cellulitis of the left shoulder and deltoid area with underlying myositis, failing outpatient treatment previously on doxycycline. Her condition is complicated by her diabetes. 2. Diabetes mellitus, type 1, initially with mild diabetic ketoacidosis, resolved. 3. Sepsis secondary to #1. 4. History of bipolar disorder with anxiety attacks. 5. History of COVID-19 pneumonia treated in January of 2020. PLAN: We will continue present supportive care including her present antibiotics. Hopefully, her culture and sensitivity of the wound will be back tomorrow and will guide our further therapy. We may need to call Dr. Gurrola, infectious diseases, at some point for recommendations of antibiotics and length of treatment. She does have a close followup with Dr. Roberto next week. I have also added back some of her long-acting insulin and although it is at a lower dosage than she gets at home. #[id number] [facility]
[2020-05-27] MEDS: IV SET AND CAP CHANGE INJ INJ SCH (19:31)
[2020-05-27] MEDS ORDERED: INSULIN DETEMIR 100 UNITS/ML PEN SUBCU SCH (21:00)
[2020-05-27] MEDS: INSULIN DETEMIR 100 UNITS/ML PEN SUBCU SCH (21:26)
[2020-05-27] MEDS: QUEtiapine FUMARATE 100 MG TAB PO SCH (21:40)
[2020-05-27] MEDS: ENOXAPARIN SODIUM 40 MG/0.4 ML SYG SUBCU SCH (21:40)
[2020-05-28] MEDS: AMPICILLIN & SULBACTAM SODIUM 1.5 GM in SODIUM CHL 0.9% 50ML MIN-BAG+ 50 ML IVPB SCH ×3 (00:53→16:45)
[2020-05-28] MEDS ORDERED: VANCOMYCIN HCL INJ 1,000 MG in SODIUM CHLORIDE 0.9% 250ML 250 ML IVPB SCH (02:00)
[2020-05-28] MEDS: HYDROmorphone HCL INJ 2 MG/ML VIAL IV PRN ×7 (02:03→23:43)
[2020-05-28] MEDS ORDERED: HYDROmorphone HCL INJ 2 MG/ML VIAL ONE ×2 (05:24→07:00)
[2020-05-28] MEDS: LEVOTHYROXINE SODIUM 0.1 MG TAB PO SCH (05:48)
[2020-05-28] MEDS ORDERED: PANTOPRAZOLE SODIUM IV 40 MG VIAL IV SCH (06:30)
[2020-05-28] MEDS: INSULIN LISPRO 100 UNITS/ML PEN SUBCU SCH ×4 (07:10→20:51)
[2020-05-28] MEDS: LISINOPRIL 10 MG TAB PO SCH (09:07)
[2020-05-28] MEDS: CARVEDILOL 12.5 MG TAB PO SCH ×2 (09:08→20:16)
[2020-05-28] MEDS: BIFIDOBACTERIUM INFANTIS 4 MG CAP PO SCH (09:09)
[2020-05-28] MEDS: FUROSEMIDE 40 MG TAB PO SCH (09:09)
[2020-05-28] MEDS: amLODIPine BESYLATE 5 MG TAB PO SCH (09:09)
[2020-05-28] MEDS: CHLORHEXIDINE GLUC 4% 15ML 45 ML, WATER FOR IRRIGATION 1,000 ML TOP SCH ×4 (09:22→20:51)
[2020-05-28] MEDS: VANCOMYCIN HCL INJ 1,000 MG, VANCOMYCIN HCL INJ 500 MG in SODIUM CHLORIDE 0.9% 250ML 25... IVPB SCH (14:09)
[2020-05-28] MEDS: ACETAMINOPHEN 325 MG TAB PO PRN (19:13)
[2020-05-28] MEDS: ENOXAPARIN SODIUM 40 MG/0.4 ML SYG SUBCU SCH (20:15)
[2020-05-28] MEDS: QUEtiapine FUMARATE 100 MG TAB PO SCH (20:15)
[2020-05-28] MEDS: INSULIN DETEMIR 100 UNITS/ML PEN SUBCU SCH (20:50)
[2020-05-29] MEDS: AMPICILLIN & SULBACTAM SODIUM 1.5 GM in SODIUM CHL 0.9% 50ML MIN-BAG+ 50 ML IVPB SCH ×3 (01:02→17:47)
[2020-05-29] MEDS ORDERED: PANTOPRAZOLE SODIUM TAB 40 MG PO ONE (02:46)
[2020-05-29] MEDS: HYDROmorphone HCL INJ 2 MG/ML VIAL IV PRN ×6 (02:50→23:58)
[2020-05-29] MEDS: LEVOTHYROXINE SODIUM 0.1 MG TAB PO SCH (06:02)
[2020-05-29] MEDS: PANTOPRAZOLE SODIUM TAB 40 MG PO SCH (06:02)
[2020-05-29] MEDS: INSULIN LISPRO 100 UNITS/ML PEN SUBCU SCH ×4 (07:36→21:04)
--- NOTE | 2020-05-29 08:08 | PN ---
SUPERVISING PHYSICIAN: Chevy Bates MD DATE: 05/28/20 SUBJECTIVE: The patient is still having a lot of pain in her left shoulder. I discussed with her that we are going to have Dr. Milan evaluate her for possibly doing an I&D in the morning. She is still getting Dilaudid, but says it is just barely controlling her pain. OBJECTIVE: VITAL SIGNS: She did run a fever last night of 100.5. Heart rate 81, blood pressure 145/78, respirations 15, saturation 97% on room air. GENERAL: This is a 34-year-old female patient who lying in her hospital bed. She is in no acute distress. CHEST: Essentially clear to auscultation bilaterally. CARDIAC: Regular rate and rhythm. EXTREMITIES: Left upper deltoid area shows continued swelling and redness. There are multiple areas of drainage. It is quite tender to palpation, but it does look like it may be developing some fluctuation and consolidation that would benefit from I&D. NEUROLOGIC: Awake, alert and oriented x3. LABORATORY: White count 12,400, hemoglobin 9.7, hematocrit 28.9, platelet count 409,000. Differential does show a left shift. Chemistries show creatinine 1.74. Blood sugars still remain elevated between 215 and 372. C-reactive protein elevated at 12.1. Liver functions all within normal limits. MICROBIOLOGY: Blood cultures show no growth after 4 days. Second set drawn last night are still negative. Culture done on admission in the office is showing a light growth of Streptococcus constellatus. Final culture report is pending. CONSULTATION: Surgical consultation with Dr. Milan. ASSESSMENT: 1. Cellulitis of the left shoulder and deltoid with associated myositis, failing outpatient treatment previously on doxycycline with preliminary cultures showing a Streptococcus species. Her condition is complicated by diabetes. 2. Diabetes mellitus, type 1, initially with mild diabetic ketoacidosis, resolved. 3. Sepsis secondary to #1. 4. History of bipolar disorder with anxiety attacks. 5. History of COVID-19 pneumonia treated in January of 2020. PLAN: I have asked Dr. Milan to see the patient in consultation for a possible surgical I&D in the morning. I think the area is consolidated and coalesced well enough that she would certainly benefit from this. We will await his consultation results. We will await culture results to further target antibiotic therapy. We will continue with Deann for pain management. We will continue to monitor blood sugars and labs as needed. Until the patient can transition to outpatient management, we will continue to monitor and treat as needed. #[id number] [facility]
[2020-05-29] MEDS: CARVEDILOL 12.5 MG TAB PO SCH ×2 (09:26→20:56)
[2020-05-29] MEDS: amLODIPine BESYLATE 5 MG TAB PO SCH (09:26)
[2020-05-29] MEDS: FUROSEMIDE 40 MG TAB PO SCH (09:27)
[2020-05-29] MEDS: CHLORHEXIDINE GLUC 4% 15ML 45 ML, WATER FOR IRRIGATION 1,000 ML TOP SCH ×4 (09:28→21:07)
[2020-05-29] MEDS: BIFIDOBACTERIUM INFANTIS 4 MG CAP PO SCH (09:29)
[2020-05-29] MEDS ORDERED: HYDROmorphone HCL INJ 2 MG/ML VIAL IV ONE ×5 (11:51→15:46)
[2020-05-29] MEDS: DEXTROSE 50% 25 GM/50 ML SYG IV PRN (13:16)
[2020-05-29] MEDS ORDERED: LACTATED RINGERS 1,000 ML ONE (13:31)
[2020-05-29] MEDS ORDERED: LACTATED RINGERS 1,000 ML IVS PRN (13:33)
[2020-05-29] MEDS ORDERED: KETAMINE HCL 100 MG/ML VIAL ONE (13:35)
[2020-05-29] MEDS ORDERED: DEXMEDETOMIDINE HCL 200 MCG/2 ML INJ IV ONE (13:35)
[2020-05-29] MEDS ORDERED: MIDAZOLAM INJ 5 MG/5 ML VIAL ONE (13:35)
[2020-05-29] MEDS ORDERED: HYDROmorphone HCL INJ 2 MG/ML VIAL ONE ×2 (13:35→15:15)
[2020-05-29] MEDS ORDERED: BUPIVACAINE 0.5% W/EPI 30 ML VIAL INJ ONE (14:34)
[2020-05-29] MEDS ORDERED: LACTATED RINGERS 600 ML IVS ONE (14:55)
--- NOTE | 2020-05-29 15:14 | OP ---
DATE OF PROCEDURE: 05/29/20 PREOPERATIVE DIAGNOSIS: 1. Left shoulder abscess. POSTOPERATIVE DIAGNOSIS: 1. Left shoulder abscess. PROCEDURE: 1. Excisional debridement and drainage of abscess, left deltoid, both skin, subcutaneous tissue and fat to the muscle. SURGEON: Chevy Milan MD COMPLICATIONS: None. ESTIMATED BLOOD LOSS: Minimal. SPECIMEN: Culture. PLAN: Admit. INDICATION: This is a woman who was admitted with shoulder swelling and abscess on 05/24/20. I was called yesterday to see it and it apparently had some center ischemic area and evidence of induration and some purulence coming out. Apparently this was a rapid change from the weekend when she had been treated with antibiotics. We recommended surgery. She was not NPO, it did not appear to be life threatening and there was concern with anesthesia, so we did it today. PROCEDURE: She was brought to the operative suite in supine position. General anesthesia was induced. She was prepped and draped in sterile fashion. There is an area of approximately 5 cm, circular, but irregular that was white, yellow and ischemic, so this was cut out sharply. As we got into the cavity, a large amount of purulence was there. A culture was taken. I used my finger to probe the area. We excised sharply some of the fat. It was about 4 cm deep to the muscle and overall area about 5 cm in circumference that was debrided, the ischemic tissue and fat. We did find some pockets and purulence within the subcutaneous fat. A we pressed, these pockets went in three different areas and purulence came out. Upon probing that, the rest of the tissue was adherent to the deltoid muscle. There was no evidence of infection deep in the muscle. All areas that were affected I think were identified. We then irrigated extensively. We also placed a lot of local anesthesia surrounding the area. The remaining skin looked good. It was somewhat erythematous and it may become ischemic. It was not particularly thin, but we will see how it declares in the next few days. There was mild oozing, as expected. It was packed with 4 by 4 gauze. She was then awakened and taken to Recovery to be admitted. [facility][id number] [facility]
[2020-05-29] MEDS: VANCOMYCIN HCL INJ 1,000 MG, VANCOMYCIN HCL INJ 500 MG in SODIUM CHLORIDE 0.9% 250ML 25... IVPB SCH (16:22)
--- NOTE | 2020-05-29 18:58 | PN ---
SUPERVISING PHYSICIAN: Cheyv Bates MD DATE: 05/29/20 SUBJECTIVE: The patient was taken to surgery for I&D of that left shoulder abscess. Dr. Milan performed the procedure. There were no intraoperative complications and she did well. She is still having some pain that left shoulder. Blood sugars are stable. OBJECTIVE: VITAL SIGNS: Temperature 97.7, pulse 74, blood pressure 137/74, respirations 16, saturation 98% on 2 liters nasal cannula. GENERAL: The patient is resting comfortably. CHEST: Clear to auscultation. CARDIAC: Regular rate and rhythm. ABDOMEN: Soft, nontender. Positive bowel sounds. EXTREMITIES: Left shoulder has a large dressing in place which is packed. It is clear and dry. Distal pulses are strong. Capillary refill brisk. NEUROLOGIC: Awake, alert and oriented x3. LABORATORY: White count 10,900 from admission of 17,100. Hemoglobin 10.3, hematocrit 29.5, which are stable. Platelet count stable at 483,000. Differential is without a left shift today. Chemistries show normal electrolytes. Blood sugars are ranging between 175 and 222. Liver functions all within normal limits. Albumin low at 1.7. MICROBIOLOGY: All blood cultures are negative, the first set at 4 days and the second set at 24 hours. Final wound culture is still pending. RADIOLOGY: No additional studies today. ASSESSMENT: 1. Cellulitis with abscess formation of the left shoulder and deltoid status post incision and drainage by Dr. Milan, postoperative day #0, with initial culture results showing Streptococcus constellatus with final cultures pending. 2. Diabetes mellitus, type 1, stable. 3. Sepsis secondary to #1, resolving with antibiotics and incision and drainage. 4. History of bipolar disorder with anxiety attacks. 5. History of COVID-19 pneumonia treated in January of 2020. PLAN: We will follow the patient postoperatively. We will continue with antibiotic coverage at this point with Unasyn and vancomycin. The patient medically seems to be stable. We will follow Dr. Milan's recommendations on discharge planning. Until the patient can transition to outpatient management and decide on antibiotic therapy, we will continue to monitor and treat as needed. She does have a midline in place at this point and as good IV access. #[id number] [facility]
[2020-05-29] MEDS: QUEtiapine FUMARATE 100 MG TAB PO SCH (20:56)
[2020-05-29] MEDS: ENOXAPARIN SODIUM 40 MG/0.4 ML SYG SUBCU SCH (20:56)
[2020-05-29] MEDS: ACETAMINOPHEN 325 MG TAB PO PRN (20:56)
[2020-05-29] MEDS: INSULIN DETEMIR 100 UNITS/ML PEN SUBCU SCH (21:05)
[2020-05-30] MEDS: AMPICILLIN & SULBACTAM SODIUM 1.5 GM in SODIUM CHL 0.9% 50ML MIN-BAG+ 50 ML IVPB SCH ×2 (01:00→08:28)
[2020-05-30] MEDS: ACETAMINOPHEN 325 MG TAB PO PRN (02:57)
[2020-05-30] MEDS: HYDROmorphone HCL INJ 2 MG/ML VIAL IV PRN ×3 (02:57→09:10)
[2020-05-30] MEDS: PANTOPRAZOLE SODIUM TAB 40 MG PO SCH (06:01)
[2020-05-30] MEDS: LEVOTHYROXINE SODIUM 0.1 MG TAB PO SCH (06:01)
[2020-05-30] MEDS: INSULIN LISPRO 100 UNITS/ML PEN SUBCU SCH ×2 (07:51→12:09)
[2020-05-30] MEDS ORDERED: ACETAMINOPHEN W/ COD #4 TAB 1EA TAB PO ONE (08:16)
[2020-05-30] MEDS: amLODIPine BESYLATE 5 MG TAB PO SCH (08:26)
[2020-05-30] MEDS: FUROSEMIDE 40 MG TAB PO SCH (08:27)
[2020-05-30] MEDS: CARVEDILOL 12.5 MG TAB PO SCH (08:27)
[2020-05-30] MEDS: CHLORHEXIDINE GLUC 4% 15ML 45 ML, WATER FOR IRRIGATION 1,000 ML TOP SCH ×2 (08:27)
[2020-05-30] MEDS: BIFIDOBACTERIUM INFANTIS 4 MG CAP PO SCH (08:27)
[2020-05-30 10:03] VITALS: O2SAT 98
[2020-05-30] MEDS ORDERED: HYDROcodone 7.5MG/APAP 325MG 1 EA TAB PO PRN (12:05)
[2020-05-30 16:38] VITALS: BP 144/85; TEMP 98
--- NOTE | 2020-05-31 11:53 | DS ---
SUPERVISING PHYSICIAN: Chevy Bates MD DISCHARGE DIAGNOSIS: 1. Cellulitis with abscess formation on the left shoulder and deltoid status post incision and drainage by Dr. Milan, postoperative day #1, with initial culture results showing Streptococcus constellatus with final cultures pending. 2. Diabetes mellitus, type 1. 3. Sepsis secondary to #1, resolving with antibiotics and incision and drainage. 4. History of bipolar disorder with anxiety attacks. 5. History of COVID-19 pneumonitis treated in 2019. HISTORY OF PRESENT ILLNESS: This is a 34-year-old female patient who has a history of type 1 diabetes mellitus with hypertension. She was seen in the clinic on 05/17/[address] Mann for a developing area of cellulitis in her left deltoid and was placed on doxycycline at that time. There were no reports of any injuries or injections to that area. She did followup on 05/24/[address] Roberto and the area of cellulitis had worsened. Dr. Roberto requested the patient be directly admitted to the hospital for further treatment and evaluation of this developing cellulitis with treatment with IV antibiotics and blood sugars would be controlled. Initially, the patient was placed in observation in the hospital. HOSPITAL COURSE: The patient was treated for mild diabetic ketoacidosis along with complicated cellulitis of the left shoulder. She was started on vancomycin and Unasyn. Blood cultures were drawn and a wound culture had been done at the clinic. She was started on DKA treatment and given fluids with frequent blood sugar checks and initially IV insulin as well as given pain medications with Dilaudid. She also received some Toradol and IV Tylenol. She was placed on an 1800 calorie ADA diet. The patient was monitored closely over that weekend. One morning, she had an altered level of consciousness and a CT of the head was done. It was negative, but they found that her blood sugars had dropped into the 50s. She was given several amps of D50. Throughout her stay, the patient did complain of pain although she did sleep quite well and there were complaints from her that she was fairly lethargic. Her blood sugars were stabilized. She continues on her vancomycin and Unasyn. I spoke with Dr. Roberto and he recommended the patient be kept in the hospital until her cultures came back. She had actually at that time been changed to an inpatient. Although the wound appeared to improve, Dr. Milan was consulted and he took her to surgery for an I&D and did wound packing. She was titrated off of her IV pain medications and given oral pain medications. Dr. Milan gave her discharge instructions including wound care and taught her to pack the wound. Her final blood cultures came back as Streptococcus constellatus. Her vital signs remained stable. Her labs were stable. She will be discharged home today in stable condition. It is to be noted that she had an appointment with her primary care physician, Dr. Roberto, on the day of discharge, but she was not discharged until after her appointment time. LABORATORY: WBCs started at 17,400 and improved to 10,900. Hemoglobin was stable at 10.3 and hematocrit 29.5. She did have a slightly elevated platelet count of 483. Her blood sugars were initially over 400. There were several adjustments to her inpatient insulin. She was continued on sliding scale insulin and are now in the low 200s. Her sodium was slightly low at 134 and is now 141. Potassium slightly low at 3.3 and is now 4. Chloride stable at 105. BUN initially 29 and now 14. Creatinine was up 2.45 and today is 1.03. Calcium was as low as 7.6, today it is 9. Magnesium as low as 1.7 and is now 2.5. AST had gone up to 84 and her liver function tests are now within normal limits. C- reactive protein was as high as 16.2 and now is 12.1. Her urinalysis showed 100 urine protein, 500 urine blood glucose, 15 urine ketones, 3 to 5 urine WBCs. MICROBIOLOGY: Her first set of blood cultures showed no growth after 5 days, second set of blood cultures showed no growth after 3 days. Wound culture showed light growth of Streptococcus constellatus. DISCHARGE PLAN: The patient will be discharged home in stable condition. She is to resume her previous diabetic diet and increase her activity as tolerated. She is to follow Dr. Milan's wound care instructions and to call his office for an appointment next week. She is also to get a followup appointment with Dr. Roberto. She has also been instructed that should she have any fever or worsening symptoms, she is to call Dr. Milan's office or come to the Emergency Room. Initially, Dr. Milan wanted her to be on Keflex, but she is allergic to that, so she was sent home on Augmentin in addition to her routine medications. DISCHARGE MEDICATIONS: 1. NovoLog insulin. 2. Lantus insulin. 3. Levothyroxine. 4. Lisinopril. 5. Tramadol. 6. Quetiapine. 7. Zofran. 8. Maxalt. 9. Lasix. 10. Hydralazine. 11. Carvedilol. 12. Amlodipine. 13. Align. 14. Augmentin. #[id number] [facility]
== END 2020-05-30 15:30 | disposition home health service (06) | DRG 853 ==
LOC: MS 16:10 → OBSVTOIN 16:10
PROVIDERS: ADMIT Nurse Practitioner Family; ATTEND Nurse Practitioner Acute Care
PROC: BP2F1ZZ Computerized Tomography (CT Scan) of Left Upper Arm using Low Osmolar Contrast (ICD-10-PCS; 2020-05-24)
PROC: 0JBF0ZZ Excision of Left Upper Arm Subcutaneous Tissue and Fascia, Open Approach (ICD-10-PCS; principal; 2020-05-29 13:53)
DX: A41.9 Sepsis, unspecified organism (principal); E10.10 Type 1 diabetes mellitus with ketoacidosis without coma; L02.414 Cutaneous abscess of left upper limb; L03.114 Cellulitis of left upper limb; B95.4 Other streptococcus as the cause of diseases classified elsewhere; E10.649 Type 1 diabetes mellitus with hypoglycemia without coma; E10.42 Type 1 diabetes mellitus with diabetic polyneuropathy; E10.319 Type 1 diabetes mellitus with unspecified diabetic retinopathy without macular edema; I25.10 Atherosclerotic heart disease of native coronary artery without angina pectoris; I10 Essential (primary) hypertension; F31.9 Bipolar disorder, unspecified; F41.0 Panic disorder [episodic paroxysmal anxiety]; E03.9 Hypothyroidism, unspecified; E78.5 Hyperlipidemia, unspecified; E66.9 Obesity, unspecified; Z68.31 Body mass index [BMI] 31.0-31.9, adult; Z88.1 Allergy status to other antibiotic agents; Z88.2 Allergy status to sulfonamides; Z88.3 Allergy status to other anti-infective agents; Z86.19 Personal history of other infectious and parasitic diseases; Z79.891 Long term (current) use of opiate analgesic; Z79.899 Other long term (current) drug therapy

== ENCOUNTER 2020-09-21 09:14 | Emergency (ER) | payer BC ==
[2020-09-21] MEDS ORDERED: ONDANSETRON INJ 4 MG/2 ML VIAL IV ONE (09:22)
[2020-09-21] MEDS ORDERED: SODIUM CHLORIDE 0.9% 1000ML 1,000 ML IVS ONE (09:22)
[2020-09-21] MEDS ORDERED: LABETALOL INJ 5 MG/ML VIAL IV STA (09:23)
--- NOTE | 2020-09-21 09:26 | ED.PDOC ---
History of Present Illness - General Time Seen by Provider: 09/21/20 09:20 Information Source: patient, RN notes reviewed, Vital Signs reviewed Additional Information: This is a 34-year-old female, history of diabetes, history of hypertension blood presents to the ER because of a 2-day history of abdominal distention burping gas, elevated blood glucose and elevated blood pressure, patient denies any previous abdominal surgeries last menstrual period was last month, denies dysuria denies GI bleeding, patient has been diagnosed with COVID-19 in the past, no sick contacts, patient was sent here from her doctor's office to be evaluated Patient stated that this has happened to her in the past, but 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 she stated that it seems like is getting worse She has been compliant with her blood pressure medication - History of Present Illness Abdominal Pain Onset Location: generalized abdomen Pain Radiation: no radiation Improving Factors: nothing Worsening Factors: nothing Associated Symptoms: heartburn Review of Systems - Review of Systems Constitutional: States: no symptoms reported EENTM: States: no symptoms reported Respiratory: States: no symptoms reported Cardiology: States: no symptoms reported Gastrointestinal/Abdominal: States: abdominal pain Genitourinary: States: no symptoms reported Musculoskeletal: States: no symptoms reported Skin: States: no symptoms reported Neurological: States: no symptoms reported Endocrine: States: no symptoms reported Hematologic/Lymphatic: States: no symptoms reported Past Medical History (General) - Patient Medical History Hx Seizures: No Hx Stroke: No Hx Dementia: No Hx Asthma: No Hx of COPD: No Hx Cardiac Disorders: No Hx Congestive Heart Failure: No Hx Pacemaker: No Hx Hypertension: Yes Hx Thyroid Disease: Yes Hx Diabetes: Yes Hx Gastroesophageal Reflux: No Hx Renal Disease: No Hx Cancer: No Hx of HIV: No Hx Hepatitis C: No Hx MRSA: Yes MRSA Source:: Wound - Vaccination History Hx Tetanus, Diphtheria Vaccination: Yes Hx Influenza Vaccination: No Hx Pneumococcal Vaccination: Yes - 2017 - Social History Hx Tobacco Use: Yes Hx Chewing Tobacco Use: No Hx Alcohol Use: No Hx Substance Use: No Hx Substance Use Treatment: No Hx Depression: No Hx Physical Abuse: No Hx Emotional Abuse: No Hx Suspected Abuse: No - Female History Hx Last Menstrual Period: 02/02/14 Patient : No Family Medical History - Family History Father Living Status: Still Living Hx Family Asthma: No Hx Family Congestive Heart Failure: No Hx Family Hypertension: Yes Hx Family Stroke: No Hx Cardiac Disease: No Hx Family Diabetes: Yes Hx Family Cancer: No Mother Family History: No Known Living Status: Still Living Hx Family Asthma: No Hx Family Congestive Heart Failure: No Hx Family Hypertension: No Hx Family Stroke: Yes Hx Cardiac Disease: No Hx Family Diabetes: Yes - dad Hx Family Cancer: No Hx Family;Other: Bipolar, Thyroid Physical Exam - Physical Exam General Appearance: Obvious distress, Well Developed, Well Groomed, Well Hydrated, Well Nourished Eyes, Ears, Nose, Throat Exam: PERRL/EOMI, normal ENT inspection, TMs normal Neck: non-tender, full range of motion, supple, normal inspection Respiratory: chest non-tender, lungs clear, normal breath sounds, no respiratory distress, no accessory muscle use Cardiovascular/Chest: normal peripheral pulses, regular rate, rhythm, no edema, no gallop, no JVD, no murmur Peripheral Pulses: No deficit Gastrointestinal/Abdominal: tenderness - diffuse abdominal pain, no acute abdomen no right lower quadrant pain Extremity: normal range of motion, non-tender, normal inspection, no pedal edema 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 No hydronephrosis. Age advanced atherosclerosis aorta. Trace free pelvic fluid. Feels better after receiving pain medication Zofran her vital signs have improved she is no longer tachycardic, blood pressure improved as well. Abdominal pelvic CT did not show evidence of appendicitis small bowel obstruction colitis, I looked the patient chemistry, and her glucose was less than 200 CO2 was 18 anion gap was normal, and no ketones so I suspect the patient low CO2 is due to. Patient was told to follow-up with a wafer polishing worker. Patient will be discharged home with Pepcid Bentyl and Zofran, and instructions were given to keep a very healthy diet keep hydrated at home, patient received a liter of normal saline prior to discharge, and she was instructed to return to the ER immediately if there is any severe abdominal pain nausea vomiting right lower quadrant pain back pain diarrhea bloody stools point weight loss decreased oral intake unable to hold any fluids down diarrhea fever chills or any other concern I suspect that this Patient has been suffering from diabetic gastroparesis 02/26/21 10:43 09/21/20 10:46 Departure - Departure Clinical Impression: Abdominal pain Qualifiers: Abdominal location: generalized Qualified Code(s): R10.84 - Generalized abdominal pain Disposition: Discharge to Home or Self Care Condition: Fair Instructions: Severe Abdominal Pain, Adult (DC), Gastroparesis (Delayed Gastric Emptying) (DC) Diet: full liquid diet, diabetic diet Activity: ambulate only with walker Referrals: Marino Roberto III, MD [Primary Care Provider] - 1-2 Weeks Prescriptions: Ondansetron Tab [Zofran Tab] 4 mg PO Q6HRS #20 tab Dicyclomine HCl [Bentyl] 20 mg PO DAILY #20 tab Famotidine [Pepcid] 20 mg PO DAILY #20 tab Home Medications: Ambulatory Orders Insulin Aspart [Novolog Flexpen] 10 unit SC TIDFD #0 02/04/14 Insulin Glargine [Lantus] 31 unit SC BID 02/04/14 Levothyroxine Sodium 100 mcg PO DAILY 05/04/15 Lisinopril 40 mg PO DAILY 04/14/16 Tramadol HCl 50 mg PO Q6HRS #20 tab 09/02/17 Quetiapine Fumarate 150 mg PO BEDTIME 05/27/18 Ondansetron HCl [Zofran] 4 mg PO Q6H PRN #12 tab 12/12/19 Amlodipine Besylate 5 mg PO DAILY 05/24/20 Carvedilol 25 mg PO BID 05/24/20 Furosemide [Lasix] 20 mg PO DAILY 05/24/20 Rizatriptan Benzoate [Maxalt] 10 mg PO DAILY PRN 05/24/20 hydrALAZINE HCl [HydrALAzine HCl] 10 mg PO BID 05/24/20 Amoxicillin & Pot Clavulanate [Augmentin Tab] 875 mg PO BID #14 tab 05/30/20 Bifidobacterium Infantis [Align] 4 mg PO DAILY cap 05/30/20 Dicyclomine HCl [Bentyl] 20 mg PO DAILY #20 tab 09/21/20 Famotidine [Pepcid] 20 mg PO DAILY #20 tab 09/21/20 Ondansetron Tab [Zofran Tab] 4 mg PO Q6HRS #20 tab 09/21/20
[2020-09-21] MEDS ORDERED: MORPHINE SULFATE INJ 10 MG/ML VIAL IV ONE (10:01)
--- NOTE | 2020-09-21 10:39 | CT ---
Study: CT abdomen and pelvis. Indication: abdominal pain Technique: Venous phase CT imaging of the abdomen and pelvis obtained after intravenous administration of contrast. This exam was performed according to our departmental dose-optimization program, which includes automated exposure control, adjustment of the mA and/or kV according to patient size and/or use of iterative reconstruction technique. Comparison: None. Findings: Mild lingular atelectasis. Several tiny subcentimeter low-density hepatic lesions, likely benign cysts or hemangiomas but too small characterize. Inferior heart, gallbladder, pancreas, spleen, adrenal glands, bladder, uterus, and bilateral adnexa unremarkable. Several punctate millimetric nonobstructing bilateral renal calculi. No hydronephrosis. Stomach, small bowel, colon, and appendix unremarkable. Trace free pelvic fluid. No free air. No pathologically enlarged lymphadenopathy. Age advanced atherosclerosis aorta. No acute osseous abnormality. Impression: Several scattered millimetric nonobstructing bilateral renal calculi. No hydronephrosis. Age advanced atherosclerosis aorta. Trace free pelvic fluid. Electronically signed by: Marcial Sanchez MD 09/21/2020 10:37 AM [facility]
[2020-09-21 11:39] VITALS: BP 154/98; TEMP 97.8; O2SAT 97
== END 2020-09-21 11:24 | disposition home or self-care (01) ==
LOC: ER 09:14
DX: R10.84 Generalized abdominal pain (principal); N20.0 Calculus of kidney; R00.0 Tachycardia, unspecified; E11.9 Type 2 diabetes mellitus without complications; I10 Essential (primary) hypertension; E07.9 Disorder of thyroid, unspecified; Z87.891 Personal history of nicotine dependence; Z86.16 Personal history of COVID-19; Z79.4 Long term (current) use of insulin; Z79.899 Other long term (current) drug therapy
CPT/HCPCS: 36415; 74177; 80053; 81001; 82009; 83690; 84703; 85025; 93005; J2270; J2405; J7030

== ENCOUNTER 2020-09-23 19:44 | Emergency (ER) | payer BC ==
[2020-09-23] MEDS ORDERED: SODIUM CHLORIDE 0.9% 1000ML 1,000 ML IVS PRN (19:51)
[2020-09-23] MEDS ORDERED: ONDANSETRON INJ 4 MG/2 ML VIAL IV ONE (19:51)
[2020-09-23] MEDS ORDERED: SODIUM CHLORIDE 0.9% (FLUSH) 10 ML SYG IV PRN (19:51)
--- NOTE | 2020-09-23 20:00 | ED.PDOC ---
History of Present Illness - General Chief Complaint: Diabetic Complaint Stated Complaint: high blood sugar, increased breathing, SOB Time Seen by Provider: 09/23/20 19:50 Source: patient, RN notes reviewed, Vital Signs reviewed Exam Limitations: no limitations - History of Present Illness Initial Comments: Patient is a 34-year-old white female who presents with complaints of shortness of breath. Patient states she has been feeling short of breath for the last day. Its been getting worse. Nothing seems to make it better. It is worse when she exerts herself. Patient's blood sugars been high. Patient is a type I diabetic. The last time she was in DKA was approximately 1 month ago. Patient denies any chest pain, shortness of breath, cough, vomiting, diarrhea. Patient denies any fever or chills. Timing/Duration: 24 hours, getting worse Severity: severe Improving Factors: nothing Worsening Factors: movement Associated Symptoms: nausea/vomiting - Nausea only Allergies/Adverse Reactions: Allergies Cephalexin [From Keflex] Allergy (Verified 09/21/20 09:22) Rash Doxycycline Allergy (Verified 09/21/20 09:22) Rash Sulfamethoxazole w/Trimethoprim [From Bactrim] Allergy (Verified 09/21/20 09:22) Rash Home Medications: Ambulatory Orders Insulin Aspart [Novolog Flexpen] 10 unit SC TIDFD #0 02/04/14 Insulin Glargine [Lantus] 31 unit SC BID 02/04/14 Levothyroxine Sodium 100 mcg PO DAILY 05/04/15 Lisinopril 40 mg PO DAILY 04/14/16 Tramadol HCl 50 mg PO Q6HRS #20 tab 09/02/17 Quetiapine Fumarate 150 mg PO BEDTIME 05/27/18 Ondansetron HCl [Zofran] 4 mg PO Q6H PRN #12 tab 12/12/19 Amlodipine Besylate 5 mg PO DAILY 05/24/20 Carvedilol 25 mg PO BID 05/24/20 Furosemide [Lasix] 20 mg PO DAILY 05/24/20 Rizatriptan Benzoate [Maxalt] 10 mg PO DAILY PRN 05/24/20 hydrALAZINE HCl [HydrALAzine HCl] 10 mg PO BID 05/24/20 Amoxicillin & Pot Clavulanate [Augmentin Tab] 875 mg PO BID #14 tab 05/30/20 Bifidobacterium Infantis [Align] 4 mg PO DAILY cap 05/30/20 Dicyclomine HCl [Bentyl] 20 mg PO DAILY #20 tab 09/21/20 Famotidine [Pepcid] 20 mg PO DAILY #20 tab 09/21/20 Ondansetron Tab [Zofran Tab] 4 mg PO Q6HRS #20 tab 09/21/20 Review of Systems - Review of Systems Constitutional: States: no symptoms reported, see HPI. Denies: chills, fever, malaise, weakness EENTM: States: no symptoms reported. Denies: eye pain, blurred vision, double vision Respiratory: States: see HPI, short of breath. Denies: cough, stridor, wheezing Cardiology: States: no symptoms reported. Denies: chest pain, palpitations, syncope Gastrointestinal/Abdominal: States: see HPI, nausea. Denies: diarrhea, vomiting Genitourinary: States: no symptoms reported. Denies: dysuria, frequency Musculoskeletal: States: no symptoms reported. Denies: back pain, joint pain, neck pain Skin: States: no symptoms reported. Denies: change in color, rash Neurological: States: no symptoms reported. Denies: headache, tingling, tremors, weakness Endocrine: States: see HPI, increased hunger, increased thirst, increased urine Hematologic/Lymphatic: States: no symptoms reported. Denies: blood clots, easy bleeding All other Systems: Reviewed and Negative Past Medical History (General) - Patient Medical History Hx Seizures: No Hx Stroke: No Hx Dementia: No Hx Asthma: No Hx of COPD: No Hx Cardiac Disorders: No Hx Congestive Heart Failure: No Hx Pacemaker: No Hx Hypertension: Yes Hx Thyroid Disease: Yes Hx Diabetes: Yes Hx Gastroesophageal Reflux: No Hx Renal Disease: No Hx Cancer: No Hx of HIV: No Hx Hepatitis C: No Hx MRSA: Yes MRSA Source:: Wound Surgical History: no surgical history - Vaccination History Hx Tetanus, Diphtheria Vaccination: Yes Hx Influenza Vaccination: No Hx Pneumococcal Vaccination: Yes - 2017 - Social History Hx Tobacco Use: Yes Hx Chewing Tobacco Use: No Hx Alcohol Use: No Hx Substance Use: No Hx Substance Use Treatment: No Hx Depression: No Hx Physical Abuse: No Hx Emotional Abuse: No Hx Suspected Abuse: No - Female History Hx Last Menstrual Period: 02/02/14 Patient : No Family Medical History - Family History Father Living Status: Still Living Hx Family Asthma: No Hx Family Congestive Heart Failure: No Hx Family Hypertension: Yes Hx Family Stroke: No Hx Cardiac Disease: No Hx Family Diabetes: Yes Hx Family Cancer: No Mother Family History: No Known Living Status: Still Living Hx Family Asthma: No Hx Family Congestive Heart Failure: No Hx Family Hypertension: No Hx Family Stroke: Yes Hx Cardiac Disease: No Hx Family Diabetes: Yes - dad Hx Family Cancer: No Hx Family;Other: Bipolar, Thyroid Physical Exam - Physical Exam General Appearance: Alert, Anxious, Obvious distress, Ill Appearing, Well Developed, Well Nourished Eye Exam: bilateral normal Ears, Nose, Throat: hearing grossly normal, normal ENT inspection, other - Dry mucous membranes and patient smells of ketones. Neck: non-tender, full range of motion, supple Respiratory: chest non-tender, lungs clear, normal breath sounds, no respiratory distress, no accessory muscle use, respiratory distress - Moderate, patient is hyperventilating. 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 09/23/20 22:05 Patient in DKA with severe acidosis. Blood sugars over 1400. Patient has been given IV insulin push and started on an insulin drip. Patient's been given 1 L normal saline bolus and was started on a bicarb drip at 50 mEq/h x 2 hours. Plan on transfer to [facility] as we do not have an ICU bed nor had the capability of caring for a patient with these lab abnormalities. I discussed this with the patient and her they voiced understanding and agreement. I have contacted [facility] and they have accepted the patient transfer. Mal Nichole M.D. #[id number] - Results/Orders Results/Orders: EKG performed 23 September 2020 at 1942 hrs.: Sinus tachycardia at 114 bpm, normal axis deviation, Q waves in V1 through V3 concerning for old anterior infarct, age indeterminate, abnormal EKG. No comparison EKG available at this time. EXAM: Chest,1 View CLINICAL INDICATION: Shortness of breath COMPARISON: 02/06/2020 FINDINGS: A single view of the chest was obtained. The heart size is normal. The pulmonary vascularity is unremarkable. The lungs are clear. There is no consolidation, infiltrate, pleural effusion, or pneumothorax. IMPRESSION: No evidence of active pulmonary disease. Electronically signed by: Moris Alcala MD 09/23/2020 8:41 PM [employer] 09/23/20 19:51 IV Care:Saline Lock per Protoc QSHIFT Sodium Chloride 0.9% (Flush) [Saline Flush Syringe] 10 ml IV PRN PRN Sodium Chloride 0.9% 1000ML [Ns 1000 ml] 1,000 ml IVS ONCE 09/23/20 19:53 Pulse Oximetry Assessment DAILY 09/23/20 20:00 EKG STAT 09/23/20 20:50 URINE CULTURE W/COLONY COUNT Stat 09/23/20 21:30 Insulin, Reg.(Human) [HumuLIN R] 250 units Sodium Chl 0.9% 250Ml (Mame) [NS 250ml (MAME)] 247.5 ml IVPB Q12H 09/24/20 09:00 Pulse Ox Daily Laboratory Results - last 24 hr 09/23/20 09/23/20 09/23/20 19:51 20:00 20:35 WBC RBC Hgb Hct MCV MCH MCHC RDW Plt Count MPV Absolute Neuts (auto) Absolute Lymphs (auto) Absolute Monos (auto) Absolute Eos (auto) Absolute Basos (auto) Neutrophils % Lymphocytes % Monocytes % Eosinophils % Basophils % Normal RBC Morphology pCO2 9 L* pO2 136 H* HCO3 2.0 ABG pH 6.955 L* ABG O2 Saturation 97.4 ABG Base Excess -28.2 ABG Deoxyhemoglobin 2.6 Oxyhemoglobin % 95.7 Carboxyhemoglobin % 0.8 Methemoglobin % Sat 0.9 Calc Total Hemoglobin 13.4 Sodium Potassium Chloride Carbon Dioxide Anion Gap BUN Creatinine BUN/Creatinine Ratio POC Glucose > 400 H* Random Glucose Cancelled Serum Osmolality Calcium Total Bilirubin AST ALT Alkaline Phosphatase Serum Total Protein Albumin Globulin Albumin/Globulin Ratio Urine Color Urine Appearance Urine pH Ur Specific [place] Urine Protein Urine Glucose (UA) Urine Ketones Urine Blood Urine Nitrite Urine Bilirubin Urine Urobilinogen Ur Leukocyte Esterase Urine RBC Urine WBC Ur Epithelial Cells Urine Bacteria Serum Ketones 09/23/20 09/23/20 09/23/20 20:50 20:50 20:50 WBC 18.9 H D RBC 4.03 L Hgb 12.9 Hct 42.6 MCV 105.7 H MCH 32.1 H MCHC 30.4 L RDW 14.4 Plt Count 341 MPV 9.1 Absolute Neuts (auto) 15.30 H Absolute Lymphs (auto) 2.30 Absolute Monos (auto) 1.20 H Absolute Eos (auto) 0.00 Absolute Basos (auto) 0.10 Neutrophils % 81.1 H Lymphocytes % 11.9 L Monocytes % 6.4 Eosinophils % 0.2 L Basophils % 0.4 Normal RBC Morphology Stain quality accept pCO2 pO2 HCO3 ABG pH ABG O2 Saturation ABG Base Excess ABG Deoxyhemoglobin Oxyhemoglobin % Carboxyhemoglobin % Methemoglobin % Sat Calc Total Hemoglobin Sodium 115 L* Potassium 5.8 H D Chloride 80 L Carbon Dioxide < 7 L* D Anion Gap 33.8 H BUN 54 H D Creatinine 2.76 H D BUN/Creatinine Ratio 19.6 POC Glucose Random Glucose 1427 H* Serum Osmolality Not Reportable Calcium 8.5 Total Bilirubin 2.2 H* D AST 42 ALT 51 Alkaline Phosphatase 175 H Serum Total Protein 7.0 Albumin 2.8 L Globulin 4.2 H Albumin/Globulin Ratio 0.7 L Urine Color [place] H Urine Appearance Cloudy Urine pH 5.0 Ur Specific [place] 1.010 Urine Protein >=300 H Urine Glucose (UA) 500 H Urine Ketones 40 H Urine Blood Large H Urine Nitrite Negative Urine Bilirubin Negative Urine Urobilinogen 0.2 Ur Leukocyte Esterase Negative Urine RBC Tntc H Urine WBC Obscured by rbc's H Ur Epithelial Cells 1-3 Urine Bacteria 0 Serum Ketones Moderate Vital Signs 09/23/20 09/23/20 09/23/20 19:44 21:00 22:00 Temperature 96.0 F L 96.1 F L Pulse Rate [ 119 H 126 H 124 H monitor] Respiratory 28 H 26 H 24 Rate Blood Pressure 211/112 153/126 187/158 [Left Arm] O2 Sat by Pulse 99 99 99 Oximetry Departure - Departure Clinical Impression: Dehydration DKA (diabetic ketoacidoses) Qualifiers: Diabetes mellitus type: type 1 Diabetes mellitus complication detail: without coma Qualified Code(s): E10.10 - Type 1 diabetes mellitus with ketoacidosis without coma Time of Disposition: 22:12 Disposition: Transfer to Hospital Condition: Serious Instructions: DI for Diabetes Type 2 Diet: diabetic diet Referrals: Marino Roberto III, MD [Primary Care Provider] - 1-2 Weeks Home Medications: Ambulatory Orders Insulin Aspart [Novolog Flexpen] 10 unit SC TIDFD #0 02/04/14 Insulin Glargine [Lantus] 31 unit SC BID 02/04/14 Levothyroxine Sodium 100 mcg PO DAILY 05/04/15 Lisinopril 40 mg PO DAILY 04/14/16 Tramadol HCl 50 mg PO Q6HRS #20 tab 09/02/17 Quetiapine Fumarate 150 mg PO BEDTIME 05/27/18 Ondansetron HCl [Zofran] 4 mg PO Q6H PRN #12 tab 12/12/19 Amlodipine Besylate 5 mg PO DAILY 05/24/20 Carvedilol 25 mg PO BID 05/24/20 Furosemide [Lasix] 20 mg PO DAILY 05/24/20 Rizatriptan Benzoate [Maxalt] 10 mg PO DAILY PRN 05/24/20 hydrALAZINE HCl [HydrALAzine HCl] 10 mg PO BID 05/24/20 Amoxicillin & Pot Clavulanate [Augmentin Tab] 875 mg PO BID #14 tab 05/30/20 Bifidobacterium Infantis [Align] 4 mg PO DAILY cap 05/30/20 Dicyclomine HCl [Bentyl] 20 mg PO DAILY #20 tab 09/21/20 Famotidine [Pepcid] 20 mg PO DAILY #20 tab 09/21/20 Ondansetron Tab [Zofran Tab] 4 mg PO Q6HRS #20 tab 09/21/20 Critical Care Note - Critical Care Note Total Time (mins): 60 Comments: The critical care time does not include any procedures that may have been performed for this patient. The time only includes bedside care, consultations with other practitioners, time with the family and the time it took to chart. Transfer to Outside Facility - Transfer Information Decision to Transfer Date: 09/23/20 Decision to Transfer Time: 21:15 Reason for Transfer: ICU Accepting Facility: [facility]
[2020-09-23 20:01] VITALS: O2SAT 99
--- NOTE | 2020-09-23 20:43 | RAD ---
EXAM: Chest,1 View CLINICAL INDICATION: Shortness of breath COMPARISON: 02/06/2020 FINDINGS: A single view of the chest was obtained. The heart size is normal. The pulmonary vascularity is unremarkable. The lungs are clear. There is no consolidation, infiltrate, pleural effusion, or pneumothorax. IMPRESSION: No evidence of active pulmonary disease. Electronically signed by: Moris Alcala MD 09/23/2020 8:41 PM [facility]
[2020-09-23] MEDS ORDERED: INSULIN, REG.(HUMAN) 100 U/ML VIAL IV ONE (21:01)
[2020-09-23] MEDS ORDERED: INSULIN, REG.(HUMAN) 250 UNITS in SODIUM CHL 0.9% 250ML (AVIVA) 247.5 ML IVPB SCH ×2 (21:30)
[2020-09-23] MEDS ORDERED: SODIUM BICARBONATE SYRINGE 50 MEQ/50 ML SYG IV ONE (21:57)
[2020-09-23] MEDS ORDERED: SODIUM BICARBONATE VIAL 50 MEQ/50 ML VIAL ONE (22:00)
[2020-09-23] MEDS ORDERED: SODIUM BICARBONATE VIAL 100 MEQ in SODIUM CHLORIDE 0.9% 1000ML 1,000 ML IVS ONE (22:00)
[2020-09-23 22:02] VITALS: TEMP 96.1
[2020-09-23] MEDS ORDERED: SODIUM CHLORIDE 0.9% 1000ML 1,000 ML ONE (22:02)
[2020-09-23 22:59] VITALS: BP 173/103
== END 2020-09-23 22:55 | disposition short-term general hospital (02) ==
LOC: ER 19:44
DX: E10.10 Type 1 diabetes mellitus with ketoacidosis without coma (principal); E86.0 Dehydration; R06.02 Shortness of breath; I10 Essential (primary) hypertension; E07.9 Disorder of thyroid, unspecified; Z20.822 Contact with and (suspected) exposure to COVID-19; Z87.891 Personal history of nicotine dependence; Z79.899 Other long term (current) drug therapy; Z79.4 Long term (current) use of insulin; Z88.1 Allergy status to other antibiotic agents; Z88.2 Allergy status to sulfonamides
CPT/HCPCS: 36600; 71045; 80053; 81001; 82009; 82803; 82805; 82948; 85025; 87086; 87635; 93005; J2405; J7030